=== PATIENT | female | born 1935 | race Caucasian/White ===

== ENCOUNTER 2017-01-27 07:20 | Inpatient (IN) | payer BC, MEDICARE ==
[2017-01-27] MEDS ORDERED: IPRATROPIUM-ALBUTEROL 3 ML NEB INHALATION STA (07:36)
--- NOTE | 2017-01-27 07:39 | ED ---
General Adult HPI - General Chief complaint: Shortness of Breath Stated complaint: RUBEN Time Seen by Provider: 01/27/17 07:25 Source: patient, EMS, RN notes reviewed Mode of arrival: EMS Limitations: no limitations - History of Present Illness Initial comments: This is an 82-year-old female who comes in with past medical history significant for congestive heart failure. Patient states she got up this morning was walking around she became short of breath and it increased to the point where she felt associated called EMS. Patient denies any increased edema to the legs. Patient states exertion definitely made it worse per patient denies any pain anywhere. She denies chest pain abdominal pains. Patient denies headache. Patient denies any numbness weakness. Patient denies any recent fever chills or cough. Patient denies any recent injury or trauma. Patient denies any nausea vomiting diarrhea. Patient states her only symptom is it is difficult to breathe and she feels as though the breathing treatment on the way and helped her even though she normally does not take any breathing treatments. - Related Data Home Medications Medication Instructions Recorded Confirmed Atenolol 100 mg PO BID 01/27/17 01/27/17 Flaxseed Oil [[place]-3 Flaxseed Oil] 3,000 mg PO HS 01/27/17 01/27/17 Furosemide [Lasix] 20 mg PO MOWEFR 01/27/17 01/27/17 Furosemide [Lasix] 20 mg PO SUTUTHSA 01/27/17 01/27/17 Isosorbide Mononitrate ER [Imdur] 30 mg PO BID 01/27/17 01/27/17 Linagliptin [Tradjenta] 5 mg PO DAILY 01/27/17 01/27/17 [place]-3 Fatty Acids/Fish Oil [Fish 3 cap PO QAM 01/27/17 01/27/17 Oil 1,000 mg Softgel] Pravastatin Sodium [Pravachol] 40 mg PO HS 01/27/17 01/27/17 Ranitidine HCl [Zantac] 300 mg PO DAILY 01/27/17 01/27/17 Terazosin [Hytrin] 5 mg PO HS 01/27/17 01/27/17 amLODIPine [Norvasc] 10 mg PO DAILY 01/27/17 01/27/17 glipiZIDE [Glucotrol] 10 mg PO AC-BID 01/27/17 01/27/17 Allergies Allergy/AdvReac Type Severity Reaction Status Date / Time No Known Allergies Allergy Verified 01/27/17 07:53 Review of Systems ROS Statement: Those systems with pertinent positive or pertinent negative responses have been documented in the HPI. ROS Other: All systems not noted in ROS Statement are negative. Past Medical History Past Medical History: Diabetes Mellitus Additional Past Medical History / Comment(s): CHF, History of Any Multi-Drug Resistant Organisms: None Reported Past Surgical History: Appendectomy Past Psychological History: No Psychological Hx Reported Smoking Status: Unknown if ever smoked Past Alcohol Use History: None Reported Past Drug Use History: None Reported General Exam - General Exam Comments Initial Comments: GENERAL: Patient is well-developed and well-nourished. Patient is nontoxic and well- hydrated and is in mild distress. ENT: Neck is soft and supple. No significant lymphadenopathy is noted. Oropharynx is clear. Moist mucous membranes. Neck has full range of motion without eliciting any pain. EYES: The sclera were anicteric and conjunctiva were pink and moist. Extraocular movements were intact and pupils were equal round and reactive to light. Eyelids were unremarkable. PULMONARY: Expiratory wheezing bilaterally no crackles are heard CARDIOVASCULAR: There is a regular rate and rhythm without any murmurs gallops or rubs. ABDOMEN: Soft and nontender with normal bowel sounds. No palpable organomegaly was noted. There is no palpable pulsatile mass. SKIN: Skin is clear with no lesions or rashes and otherwise unremarkable. NEUROLOGIC: Patient is alert and oriented x3. Cranial nerves II through XII are grossly intact. Motor and sensory are also intact. Normal speech, volume and content. Symmetrical smile. MUSCULOSKELETAL: Normal extremities with adequate strength and full range of motion. No lower extremity swelling or edema. No calf tenderness. LYMPHATICS: No significant lymphadenopathy is noted PSYCHIATRIC: Normal psychiatric evaluation. Normal interpersonal interactions appears functionally intact in deals appropriately with others. No signs of depression. No signs of anxiety. Limitations: no limitations Course Vital Signs 01/27/17 01/27/17 01/27/17 07:24 07:27 07:44 Temperature 97.9 F 98.7 F Pulse Rate 96 97 Respiratory 20 20 20 Rate Blood Pressure 168/74 168/74 O2 Sat by Pulse 90 L 97 Oximetry 03/22/17 03/22/17 03/22/17 07:45 07:55 09:05 Temperature Pulse Rate 90 84 83 Respiratory 16 Rate Blood Pressure 160/70 O2 Sat by Pulse Oximetry 01/27/17 01/27/17 09:35 10:55 Temperature Pulse Rate 80 87 Respiratory 20 15 Rate Blood Pressure 180/81 151/67 O2 Sat by Pulse 98 88 L Oximetry Medical Decision Making - Medical Decision Making EKG shows normal sinus rhythm at 91 bpm NH interval is 208 QRSs 86 QT interval 360 QTC is 442. Patient's EKG shows no ST segment elevation or depression or T wave abnormalities are noted. Chest x-ray shows acute pulmonary edema Computed tomography scan shows acute pulmonary edema no PE. I started the patient Lasix and nitro paste admitted the patient I spoke with Dr. Gilliam he agreed to admit the patient I wrote admitting orders and consult cardiology. - Lab Data Result diagrams: 01/27/17 07:30 01/27/17 07:30 Lab Results 01/27/17 01/27/17 01/27/17 Range/Units 07:30 07:30 07:30 WBC 15.8 H (3.8-10.6) k/uL RBC 4.70 (3.80-5.40) m/uL Hgb 13.3 (11.4-16.0) gm/dL Hct 41.3 (34.0-46.0) % MCV 87.9 (80.0-100.0) fL MCH 28.3 (25.0-35.0) pg MCHC 32.2 (31.0-37.0) g/dL RDW 12.9 (11.5-15.5) % Plt Count 299 (150-450) k/uL Neutrophils % 88 % Lymphocytes % 4 % Monocytes % 5 % Eosinophils % 2 % Basophils % 1 % Neutrophils # 13.8 H (1.3-7.7) k/uL Lymphocytes # 0.7 L (1.0-4.8) k/uL Monocytes # 0.7 (0-1.0) k/uL Eosinophils # 0.3 (0-0.7) k/uL Basophils # 0.1 (0-0.2) k/uL PT (9.0-12.0) sec INR (<1.1) APTT (22.0-30.0) sec D-Dimer (<0.60) mg/L FEU Sodium 135 L (137-145) mmol/L Potassium 4.4 (3.5-5.1) mmol/L Chloride 100 (98-107) mmol/L Carbon Dioxide 25 (22-30) mmol/L Anion Gap 10 mmol/L BUN 21 H (7-17) mg/dL Creatinine 0.92 (0.52-1.04) mg/dL Est GFR (MDRD) Af Amer >60 (>60 ml/min/1.73 sqM) Est GFR (MDRD) Non-Af 58 (>60 ml/min/1.73 sqM) Glucose 277 H (74-99) mg/dL POC Glucose (mg/dL) (75-99) mg/dL POC Glu Mortgage Operations Manager ID Calcium 8.9 (8.4-10.2) mg/dL Magnesium 1.9 (1.6-2.3) mg/dL Total Bilirubin 0.7 (0.2-1.3) mg/dL AST 19 (14-36) U/L ALT 22 (9-52) U/L Alkaline Phosphatase 79 (38-126) U/L Total Creatine Kinase 36 (30-135) U/L CK-MB (CK-2) 0.7 (0.0-2.4) ng/mL CK-MB (CK-2) Rel Index 1.9 Troponin I <0.012 (0.000-0.034) ng/mL NT-Pro-B Natriuret Pep pg/mL Total Protein 7.1 (6.3-8.2) g/dL Albumin 3.7 (3.5-5.0) g/dL 01/27/17 01/27/17 01/27/17 Range/Units 07:30 07:30 08:06 WBC (3.8-10.6) k/uL RBC (3.80-5.40) m/uL Hgb (11.4-16.0) gm/dL Hct (34.0-46.0) % MCV (80.0-100.0) fL MCH (25.0-35.0) pg MCHC (31.0-37.0) g/dL RDW (11.5-15.5) % Plt Count (150-450) k/uL Neutrophils % % Lymphocytes % % Monocytes % % Eosinophils % % Basophils % % Neutrophils # (1.3-7.7) k/uL Lymphocytes # (1.0-4.8) k/uL Monocytes # (0-1.0) k/uL Eosinophils # (0-0.7) k/uL Basophils # (0-0.2) k/uL PT 10.4 (9.0-12.0) sec INR 1.0 (<1.1) APTT 20.4 L (22.0-30.0) sec D-Dimer 2.95 H (<0.60) mg/L FEU Sodium (137-145) mmol/L Potassium (3.5-5.1) mmol/L Chloride (98-107) mmol/L Carbon Dioxide (22-30) mmol/L Anion Gap mmol/L BUN (7-17) mg/dL Creatinine (0.52-1.04) mg/dL Est GFR (MDRD) Af Amer (>60 ml/min/1.73 sqM) Est GFR (MDRD) Non-Af (>60 ml/min/1.73 sqM) Glucose (74-99) mg/dL POC Glucose (mg/dL) 285 H (75-99) mg/dL POC Glu Mortgage Operations Manager ID Elisa Posada Calcium (8.4-10.2) mg/dL Magnesium (1.6-2.3) mg/dL Total Bilirubin (0.2-1.3) mg/dL AST (14-36) U/L ALT (9-52) U/L Alkaline Phosphatase (38-126) U/L Total Creatine Kinase (30-135) U/L CK-MB (CK-2) (0.0-2.4) ng/mL CK-MB (CK-2) Rel Index Troponin I (0.000-0.034) ng/mL NT-Pro-B Natriuret Pep 1070 pg/mL Total Protein (6.3-8.2) g/dL Albumin (3.5-5.0) g/dL Critical Care Time Critical Care Time: Yes Total Critical Care Time: 35 Disposition Clinical Impression: Acute pulmonary edema Disposition: ADMITTED IP TO THIS [facility] Time of Disposition: 11:02
[2017-01-27 07:57] LABS: Basophils # (A) 0.1 k/uL (0-0.2); Basophils % (A) 1 %; CH 28.4; CHCM 32.4; Eosinophils # (A) 0.3 k/uL (0-0.7); Eosinophils % (A) 2 %; HCT 41.3 % (34.0-46.0); HDW 2.52; HGB 13.3 gm/dL (11.4-16.0); Luc # (Auto) 0.15; Luc % (Auto) 1; Lymphocytes # (A) 0.7 k/uL (1.0-4.8); Lymphocytes % (A) 4 %; MCH 28.3 pg (25.0-35.0); MCHC 32.2 g/dL (31.0-37.0); MCV 87.9 fL (80.0-100.0); Monocytes # (A) 0.7 k/uL (0-1.0); Monocytes % (A) 5 %; Neutrophils # (A) 13.8 k/uL (1.3-7.7); Neutrophils % (A) 88 %; RDW 12.9 % (11.5-15.5); WBC 15.8 k/uL (3.8-10.6); WBC (Perox) 16.04
[2017-01-27 08:07] LABS: ALT 22 U/L (9-52); AST 19 U/L (14-36); Alkaline Phosphatase 79 U/L (38-126); Anion Gap 10 mmol/L; Blood Urea Nitrogen 21 mg/dL (7-17); Calcium 8.9 mg/dL (8.4-10.2); Carbon Dioxide 25 mmol/L (22-30); Chloride 100 mmol/L (98-107); Glucose 277 mg/dL (74-99); Magnesium 1.9 mg/dL (1.6-2.3); Non-African American GFR(MDRD) 58 (>60 ml/min/1.73 sqM); Potassium 4.4 mmol/L (3.5-5.1); Sodium 135 mmol/L (137-145); Total Bilirubin 0.7 mg/dL (0.2-1.3); Total Protein 7.1 g/dL (6.3-8.2)
[2017-01-27 08:08] LABS: Glucose,Whole Blood 285 mg/dL (75-99)
[2017-01-27 08:08] LABS: Prothrombin Time 10.4 sec (9.0-12.0)
[2017-01-27 08:24] LABS: Partial Thromboplastin Time 20.4 sec (22.0-30.0)
[2017-01-27 08:28] LABS: Creatine Kinase 36 U/L (30-135)
[2017-01-27 08:37] LABS: Creatine Kinase MB 0.7 ng/mL (0.0-2.4); Troponin I <0.012 ng/mL (0.000-0.034)
--- NOTE | 2017-01-27 09:43 | XR ---
EXAMINATION TYPE: XR chest 2V DATE OF EXAM: 01/27/2017 9:17 AM COMPARISON: NONE HISTORY: Difficulty in breathing. TECHNIQUE: Frontal and lateral views of the chest are obtained. FINDINGS: There is cardiomegaly with atherosclerotic thoracic aorta present and central vascular con gestion seen. There is interstitial prominence or edema with Emmie B lines in the periphery. Small b ilateral pleural effusions are felt present. There is slightly more prominent associated basilar atel ectasis and/or infiltrate on lateral view. Spurring and disc space narrowing in the thoracolumbar reg ion is noted. IMPRESSION: Suspect CHF exacerbation as there is cardiomegaly with central vascular congestion along with interstitial edema and small bilateral pleural effusions, clinical correlation advised.
[2017-01-27] MEDS ORDERED: RX INFO: IV CONTRAST WAS GIVEN 1 EACH MISC MISCELLANE PRN (09:44)
[2017-01-27] MEDS ORDERED: FUROSEMIDE 10 MG/ML 2 ML VIAL IV ONE (09:45)
--- NOTE | 2017-01-27 10:46 | CT ---
EXAMINATION TYPE: CT chest angio for PE DATE OF EXAM: 01/27/2017 10:22 AM COMPARISON: Chest x-ray from earlier today HISTORY: difficulty breathing CT DLP: 295.3 mGycm. Automated Exposure Control for Dose Reduction was Utilized. CONTRAST: CTA scan of the thorax is performed with IV Contrast, patient injected with 68 mL of Visipaque 320, p ulmonary embolism protocol. MIP Images are created on CT scanner and reviewed. FINDINGS: LUNGS: Exam is suboptimal as is significantly degraded by patient respiratory motion artifact. There are small to moderate-sized right greater than left pleural effusions. There is associated compressiv e atelectasis in both lung bases, right greater than left. There are some scattered areas of linear a telectasis bilaterally. Evaluation for subcentimeter nodularity is suboptimal due to marked respirato ry motion artifact but note is made of a suspicious 11 x 6 mm nodule in the right midlung anterolater ally on axial image 73 that warrants follow-up. No pneumothorax is seen bilaterally. MEDIASTINUM: There is suboptimal study but there is no convincing CT evidence for pulmonary embolism. Some heterogeneity in the peripheral branches makes evaluation at this level suboptimal. There are no greater than 1 cm noncalcified hilar or mediastinal lymph nodes. There are prominent but calcified subcarinal and paraesophageal lymph nodes. No significant pericardial effusion is seen. There is car diomegaly with moderate biatrial dilatation. Coronary artery calcification is present. There is moder ate mixed plaque in the aortic arch and descending aorta. Reflux of contrast into hepatic veins and I VC suggest some right heart failure. Main pulmonary artery measures 3.0 cm in diameter on axial image 57, adjacent ascending aorta measures 2.[address] findings suggesting underlying pulmonary a rtery hypertension. OTHER: There is multilevel vacuum disc phenomenon and disc space narrowing in the lower thoracic spin e. There is 4 cm simple appearing cyst anteriorly upper pole level left kidney. There is low dense th ickening of left adrenal gland consistent with lipid rich benign hyperplasia. Scattered locations thr oughout the spleen are suggestive of old granulomatous disease.. IMPRESSION: 1. Suboptimal study without CT evidence for pulmonary embolism. 2. Consider CHF exacerbation as there is cardiomegaly with small to moderate-sized right greater than left pleural effusions and scattered opacities suggestive of mild alveolar and interstitial edema. 3. CT findings suggesting right heart failure and underlying pulmonary artery hypertension are noted as detailed above. There is moderate biatrial dilatation and left ventricular hypertrophy noted. Clin ical and echo correlation advised. 4. Note is made of 11 x 6 mm nodule right midlung laterally, consider nonemergent PET/CT follow-up.
[2017-01-27] MEDS: NITROGLYCERIN OINT 1 INCH/GM PACKET TOPICAL SCH ×3 (15:01→23:25)
[2017-01-27] MEDS: glipiZIDE 10 MG TAB PO SCH (16:59)
[2017-01-27] MEDS: FUROSEMIDE 10 MG/ML 2 ML VIAL IV SCH ×2 (16:59→23:26)
[2017-01-27] MEDS: amLODIPine 10 MG TAB PO SCH (16:59)
[2017-01-27] MEDS: LINAGLIPTIN 5 MG TABLET PO SCH (16:59)
[2017-01-27] MEDS: FAMOTIDINE 20 MG TAB PO SCH (16:59)
--- NOTE | 2017-01-27 17:00 | P.CRDCN ---
History of Present Illness Consult date: 01/27/17 Consult reason: congestive heart failure History of present illness: 82-year-old lady with with history of firm moderate right external os is diabetes hypertension comes to Hospital with sudden onset shortness of breath. She developed moderate to severe and sensory shortness of breath without chest pain paroxysmal nocturnal dyspnea or orthopnea. She has known moderate aortic stenosis and echocardiogram in February 2016 revealed mean gradient of 22 mm. He had a dobutamine echo in July 2015 that was negative patient's chest x-ray and CAT scan show evidence of congestive heart failure CT chest is negative for pulmonary embolism BNP is elevated. She is being treated with IV Lasix with improvement in her symptoms. Patient needs evaluation for her underlying aortic valve disease as the congestive heart failure may be due to diastolic dysfunction and hypertensive heart disease are due to the underlying valvular heart disease. She does carry a history of congestive heart failure. Her congestive heart failure is due to diastolic dysfunction this is an acute exacerbation of chronic heart failure. We can increase the dose of diuretics to 40 mg every 8 continue with optimal control of blood pressure. I will obtain troponins to rule out myocardial infarction. Review of Systems Constitutional: Denies chills. Denies fever. Eyes: Denies blurred vision. Denies pain. Ears, nose, mouth and throat: Denies headache. Denies sore throat. Cardiovascular: Denies chest pain. has shortness of breath. Respiratory: Denies cough. Gastrointestinal: Denies abdominal pain. Denies diarrhea. Denies nausea. Denies vomiting. Musculoskeletal: Denies myalgias. Integumentary: Denies pruritus. Denies rash. Neurological: Denies numbness. Denies weakness. Psychiatric: Denies anxiety. Denies depression. Endocrine: Denies fatigue. Denies weight change. Genitourinary: Denies burning, hematuria, frequency of urination. Hematological: No anemia or excess bleeding. Past Medical History Past Medical History: Diabetes Mellitus, GERD/Reflux, Renal Disease, Vascular Disorder Additional Past Medical History / Comment(s): CHF, cardiomyopathy, cardiac valve problem, NIDDM type II, past diabetic retinopathy-"they say I don't have it anymore.", peripheral neuropathy L hand and L foot, CKD stage III, bronchitis History of Any Multi-Drug Resistant Organisms: None Reported Past Surgical History: Appendectomy Additional Past Surgical History / Comment(s): colonoscopies with benign polypectomy, bilateral cataract removal. Past Anesthesia/Blood Transfusion Reactions: Motion Sickness Past Psychological History: No Psychological Hx Reported Additional Psychological History / Comment(s): Pt resides with her spouse. She uses no assistive device. She drives locally, familiar areas. Smoking Status: Former smoker Past Alcohol Use History: None Reported Past Drug Use History: None Reported - Past Family History Father Family Medical History: Myocardial Infarction (OK) Additional Family Medical History / Comment(s): Father of a OK at the age of 58yrs. Mother Family Medical History: No Reported History Additional Family Medical History / Comment(s): Mother lived to be 84 yrs old. Medications and Allergies Home Medications Medication Instructions Recorded Confirmed Type Atenolol 100 mg PO BID 01/27/17 01/27/17 History Flaxseed Oil [[place]-3 Flaxseed Oil] 3,000 mg PO HS 01/27/17 01/27/17 History Furosemide [Lasix] 20 mg PO MOWEFR 01/27/17 01/27/17 History Furosemide [Lasix] 20 mg PO SUTUTHSA 01/27/17 01/27/17 History Isosorbide Mononitrate ER [Imdur] 30 mg PO BID 01/27/17 01/27/17 History Linagliptin [Tradjenta] 5 mg PO DAILY 01/27/17 01/27/17 History [place]-3 Fatty Acids/Fish Oil [Fish 3 cap PO QAM 01/27/17 01/27/17 History Oil 1,000 mg Softgel] Pravastatin Sodium [Pravachol] 40 mg PO HS 01/27/17 01/27/17 History Ranitidine HCl [Zantac] 300 mg PO DAILY 01/27/17 01/27/17 History Terazosin [Hytrin] 5 mg PO HS 01/27/17 01/27/17 History amLODIPine [Norvasc] 10 mg PO DAILY 01/27/17 01/27/17 History glipiZIDE [Glucotrol] 10 mg PO AC-BID 01/27/17 01/27/17 History Allergies Allergy/AdvReac Type Severity Reaction Status Date / Time No Known Allergies Allergy Verified 01/27/17 07:53 Physical Exam Vitals: Vital Signs Temp Pulse Pulse Resp BP BP Pulse Ox 01/27/17 14:56 98.1 F 92 20 202/81 91 L 01/27/17 13:40 97.5 F L 83 20 132/68 95 01/27/17 12:19 86 18 144/70 93 L Intake and Output 01/27/17 01/27/17 01/27/17 06:59 14:59 22:59 Other: # Voids 1 General: The patient is awake and alert, in no distress, and does not appear acutely ill. Skin: Skin is warm and dry and no rashes or lesions are noted. Eye: Pupils are equal, round and reactive to light, extra-ocular movements are intact; there is normal conjunctiva bilaterally. Ears, nose, mouth and throat: There are moist mucous membranes and no oral lesions. Neck: The neck is supple, there is no tenderness or JVD. Cardiovascular: [ There is a regular rate and rhythm.] Is a grade 3 x 6 ejection systolic murmur in the aortic area and a systolic murmur at the apex Respiratory: Bilateral crackles and rhonchi noted Gastrointestinal: Soft, non-distended, non-tender abdomen without masses or organomegaly noted. There is no rebound or guarding present. Bowel sounds are unremarkable. Back: There is no tenderness to palpation in the midline. There is no obvious deformity. Musculoskeletal: Normal ROM, no tenderness, There is no pedal edema. There is no calf tenderness or swelling. Extremities:[ No edema.] Vascular: [Femoral pulse is normal.][ Posterior tibial pulses are normal .][ Dorsalis pedis is palpable.] Neurological: CN II-XII intact. There are no obvious motor or sensory deficits. Speech is normal. Psychiatric: Cooperative, appropriate mood & affect, normal judgment. Results 01/27/17 07:30 01/27/17 07:30 Current Medications Generic Name Dose Route Start Last Admin Trade Name Freq PRN Reason Stop Dose Admin Amlodipine Besylate 10 mg 01/27/17 15:30 Norvasc PO DAILY ULISES Atenolol 100 mg 01/27/17 21:00 Tenormin PO BID ULISES Famotidine 40 mg 01/27/17 15:30 Pepcid PO DAILY ULISES Furosemide 20 mg 01/27/17 18:00 Lasix IV Q8H ULISES Glipizide 10 mg 01/27/17 17:30 Glucotrol PO AC-BID ULISES Insulin Human Lispro 0 unit 01/27/17 17:30 Humalog SQ ACHS ULISES Protocol Linagliptin 5 mg 01/27/17 15:30 Tradjenta PO DAILY ULISES Miscellaneous Information 1 each 01/27/17 09:44 01/27/17 10:44 Rx Info: Iv Contrast Was Given MISCELLANE 01/29/17 09:44 1 each DAILY PRN Administration Per Protocol Nitroglycerin 1 inch 01/27/17 13:00 01/27/17 15:01 Nitro-Bid Oint TOPICAL Not Given QID ULISES Pravastatin Sodium 40 mg 01/27/17 21:00 Pravachol PO HS ULISES Terazosin HCl 5 mg 01/27/17 21:00 Hytrin PO HS ULISES Intake and Output 01/27/17 01/27/17 01/27/17 06:59 14:59 22:59 Other: # Voids 1 EKG Interpretations (text) Normal sinus rhythm without ST-T wave changes Assessment and Plan Plan: Acute exacerbation of chronic diastolic heart failure Moderate aortic stenosis Hypertension Lipidemia Patient will be treated with intravenous diuretics continue with current antihypertensive medications. Once the heart failure resolves patient may benefit from invasive angiography to rule out significant obstructive CAD and a transesophageal echo if necessary for optimal evaluation of the aortic valve
[2017-01-27] MEDS: INSULIN LISPRO (humaLOG) 300 UNIT/3 ML VIAL SQ SCH ×2 (17:07→21:17)
[2017-01-27 17:10] LABS: Glucose,Whole Blood 200 mg/dL (75-99)
[2017-01-27 20:53] LABS: Glucose,Whole Blood 171 mg/dL (75-99)
[2017-01-27] MEDS: ATENOLOL 50 MG TAB PO SCH (21:17)
[2017-01-27] MEDS: TERAZOSIN 5 MG CAP PO SCH (21:17)
[2017-01-27] MEDS: PRAVASTATIN SODIUM 40 MG TAB PO SCH (21:17)
[2017-01-27] MEDS: HEPARIN SODIUM,PORCINE 5,000 UNIT/ML 1 ML VIAL SQ SCH (23:38)
[2017-01-28 05:37] LABS: Glucose,Whole Blood 221 mg/dL (75-99)
[2017-01-28 06:13] LABS: Basophils # (A) 0.1 k/uL (0-0.2); Basophils % (A) 1 %; CH 28.4; CHCM 32.3; Eosinophils # (A) 0.2 k/uL (0-0.7); Eosinophils % (A) 2 %; HCT 35.2 % (34.0-46.0); HDW 2.49; HGB 11.1 gm/dL (11.4-16.0); Luc # (Auto) 0.15; Luc % (Auto) 2; Lymphocytes # (A) 0.7 k/uL (1.0-4.8); Lymphocytes % (A) 6 %; MCH 27.9 pg (25.0-35.0); MCHC 31.7 g/dL (31.0-37.0); MCV 88.1 fL (80.0-100.0); Mean Platelet Volume 6.6; Monocytes # (A) 0.8 k/uL (0-1.0); Monocytes % (A) 8 %; Neutrophils # (A) 8.8 k/uL (1.3-7.7); Neutrophils % (A) 82 %; WBC 10.6 k/uL (3.8-10.6); WBC (Perox) 11.22
[2017-01-28 06:21] LABS: Calcium 8.9 mg/dL (8.4-10.2); Potassium 4.4 mmol/L (3.5-5.1)
[2017-01-28] MEDS: glipiZIDE 10 MG TAB PO SCH ×2 (06:30→17:20)
[2017-01-28] MEDS: INSULIN LISPRO (humaLOG) 300 UNIT/3 ML VIAL SQ SCH ×4 (06:31→21:30)
[2017-01-28] MEDS: LINAGLIPTIN 5 MG TABLET PO SCH (08:59)
[2017-01-28] MEDS: ATENOLOL 50 MG TAB PO SCH ×2 (09:00→21:28)
[2017-01-28] MEDS: HEPARIN SODIUM,PORCINE 5,000 UNIT/ML 1 ML VIAL SQ SCH ×2 (09:00→17:22)
[2017-01-28] MEDS: NITROGLYCERIN OINT 1 INCH/GM PACKET TOPICAL SCH (09:00)
[2017-01-28] MEDS: FAMOTIDINE 20 MG TAB PO SCH (09:00)
[2017-01-28] MEDS: amLODIPine 10 MG TAB PO SCH (09:01)
[2017-01-28] MEDS: FUROSEMIDE 10 MG/ML 2 ML VIAL IV SCH (09:01)
--- NOTE | 2017-01-28 09:42 | P.PN ---
Subjective Principal diagnosis: CHF This is a pleasant 82-year-old female with history of diabetes, hypertension, hyperlipidemia, who presented to the hospital with symptoms of progressively worsening shortness of breath. According to the patient, she is prescribed to take Lasix at home, however has not taken it as prescribed because of the irritation of having to urinate so frequently. Chest x-ray on admission here showed congestive heart failure exacerbation as well as cardiomegaly with central vascular congestion. BNP level 1070.. She was initiated on IV Lasix. She diuresed well through the night. Creatinine this morning 1.3, up from 0.9. D-dimer was elevated and for this reason a CT of the chest was requested. There was no evidence of pulmonary embolism. It did reveal congestive heart failure with a moderate right side pleural effusion. Patient was also found to have a 11.6 mm nodule in the right midlung laterally. Blood pressure this morning 108/60 with a heart rate in the 60s. She is 92% on 6 L of oxygen. At the time of my examination this morning, patient states that her breathing is significantly improved. Echo with Doppler study has been requested but as yet pending. Objective - Vital Signs Vital signs: Vital Signs Temp 97.4 F L 01/28/17 04:00 Pulse 64 01/28/17 04:00 Resp 19 01/28/17 04:00 BP 108/62 01/28/17 04:00 Pulse Ox 92 L 01/28/17 04:00 Intake & Output 01/27/17 01/28/17 01/28/17 18:59 06:59 18:59 Intake Total 200 400 100 Output Total 100 Balance 200 300 100 Weight 75.1 kg Intake: Oral 200 400 100 Output: Urine 100 Other: Voiding Method Urinal # Voids 1 - Exam PHYSICAL EXAMINATION: HEENT: Head is atraumatic, normocephalic. Pupils equal, round. Neck is supple. There is no elevated jugular venous pressure. HEART EXAMINATION: Heart S1 and S2 systolic ejection murmur is heard. CHEST EXAMINATION: Lungs are clear with mild diminished air entry to the right posterior base ABDOMEN: Soft, nontender. Bowel sounds are heard. No organomegaly noted. EXTREMITIES: 2+ peripheral pulses with trace evidence of peripheral edema and no calf tenderness noted. NEUROLOGIC patient is awake, alert and oriented -3. . - Labs CBC & Chem 7: 01/28/17 05:49 01/28/17 05:49 Labs: Abnormal Lab Results - Last 24 Hours (Table) 01/27/17 01/27/17 01/27/17 Range/Units 16:47 17:21 20:51 Hgb (11.4-16.0) gm/dL Neutrophils # (1.3-7.7) k/uL Lymphocytes # (1.0-4.8) k/uL Sodium (137-145) mmol/L BUN (7-17) mg/dL Creatinine (0.52-1.04) mg/dL Glucose (74-99) mg/dL POC Glucose (mg/dL) 200 H 171 H (75-99) mg/dL Troponin I 0.115 H* (0.000-0.034) ng/mL 01/27/17 01/28/17 01/28/17 Range/Units 23:20 05:35 05:49 Hgb (11.4-16.0) gm/dL Neutrophils # (1.3-7.7) k/uL Lymphocytes # (1.0-4.8) k/uL Sodium (137-145) mmol/L BUN (7-17) mg/dL Creatinine (0.52-1.04) mg/dL Glucose (74-99) mg/dL POC Glucose (mg/dL) 221 H (75-99) mg/dL Troponin I 0.121 H* 0.107 H* (0.000-0.034) ng/mL 01/28/17 01/28/17 Range/Units 05:49 05:49 Hgb 11.1 L (11.4-16.0) gm/dL Neutrophils # 8.8 H (1.3-7.7) k/uL Lymphocytes # 0.7 L (1.0-4.8) k/uL Sodium 136 L (137-145) mmol/L BUN 28 H (7-17) mg/dL Creatinine 1.30 H (0.52-1.04) mg/dL Glucose 203 H (74-99) mg/dL POC Glucose (mg/dL) (75-99) mg/dL Troponin I (0.000-0.034) ng/mL Assessment and Plan (1) Diastolic CHF, acute on chronic Status: Acute (2) Aortic stenosis Status: Acute (3) Hypertension Status: Acute (4) Diabetes Status: Acute (5) Hyperlipidemia Status: Acute (6) Lung nodule Status: Acute Plan: From cardiology's perspective, we will await the results of echocardiogram with Doppler study. We will discontinue the IV Lasix, and recommended that the patient take 20 mg of by mouth Lasix twice a day. Check lytes BUN and creatinine in the morning. Further recommendations to follow. DNP note has been reviewed, I agree with a documented findings and plan of care. Patient was seen and examined.
--- NOTE | 2017-01-28 09:45 | P.NPCON ---
History of Present Illness - Reason for Consult acute renal failure - History of Present Illness Reason for consultation: Acute kidney injury History of present illness: Patient is a 82-year-old female seen in renal consultation for acute kidney injury. Her creatinine was 1 on admission and elevated at 1.3 today. Patient presented to the hospital with dyspnea. She has history of aortic stenosis and diastolic CHF. Patient was maintained on Lasix at home but states she had decreased the dose down to 20 mg once daily as she was urinating too much. She progressively became more dyspneic and presented to the hospital. She is currently maintained on Lasix 20 mg IV every 8 hours and has been diuresing well. Her dyspnea is improved. She denies any chest pain. Denies any vomiting or diarrhea. Oral intake is good. Denies use of NSAIDs on a regular basis. Denies any family history of renal disease. Does have a history of long-standing diabetes of over 25 years. Vital signs are stable. General: The patient appeared well nourished and normally developed. HEENT: Head exam is unremarkable. Neck is without jugular venous distension. LUNGS: Lungs are clear to auscultation and percussion. Breath sounds decreased. HEART: Rate and Rhythm are regular. First and second heart sounds normal. No murmurs, rubs or gallops. ABDOMEN: Abdominal exam reveals normal bowel sounds. Non-tender and non- distended. No evidence of peritonitis. EXTREMITITES: No clubbing, cyanosis, or edema. Past Medical History Past Medical History: Diabetes Mellitus, GERD/Reflux, Renal Disease, Vascular Disorder Additional Past Medical History / Comment(s): CHF, cardiomyopathy, cardiac valve problem, NIDDM type II, past diabetic retinopathy-"they say I don't have it anymore.", peripheral neuropathy L hand and L foot, CKD stage III, bronchitis History of Any Multi-Drug Resistant Organisms: None Reported Past Surgical History: Appendectomy Additional Past Surgical History / Comment(s): colonoscopies with benign polypectomy, bilateral cataract removal. Past Anesthesia/Blood Transfusion Reactions: Motion Sickness Past Psychological History: No Psychological Hx Reported Additional Psychological History / Comment(s): Pt resides with her spouse. She uses no assistive device. She drives locally, familiar areas. Smoking Status: Former smoker Past Alcohol Use History: None Reported Past Drug Use History: None Reported - Past Family History Father Family Medical History: Myocardial Infarction (ME) Additional Family Medical History / Comment(s): Father of a ME at the age of 58yrs. Mother Family Medical History: No Reported History Additional Family Medical History / Comment(s): Mother lived to be 84 yrs old. Medications and Allergies Home Medications Medication Instructions Recorded Confirmed Type Atenolol 100 mg PO BID 01/27/17 01/27/17 History Flaxseed Oil [[place]-3 Flaxseed Oil] 3,000 mg PO HS 01/27/17 01/27/17 History Furosemide [Lasix] 20 mg PO MOWEFR 01/27/17 01/27/17 History Furosemide [Lasix] 20 mg PO SUTUTHSA 01/27/17 01/27/17 History Isosorbide Mononitrate ER [Imdur] 30 mg PO BID 01/27/17 01/27/17 History Linagliptin [Tradjenta] 5 mg PO DAILY 01/27/17 01/27/17 History [place]-3 Fatty Acids/Fish Oil [Fish 3 cap PO QAM 01/27/17 01/27/17 History Oil 1,000 mg Softgel] Pravastatin Sodium [Pravachol] 40 mg PO HS 01/27/17 01/27/17 History Ranitidine HCl [Zantac] 300 mg PO DAILY 01/27/17 01/27/17 History Terazosin [Hytrin] 5 mg PO HS 01/27/17 01/27/17 History amLODIPine [Norvasc] 10 mg PO DAILY 01/27/17 01/27/17 History glipiZIDE [Glucotrol] 10 mg PO AC-BID 01/27/17 01/27/17 History Allergies Allergy/AdvReac Type Severity Reaction Status Date / Time No Known Allergies Allergy Verified 01/27/17 07:53 Physical Exam Vitals: Vital Signs Temp Pulse Pulse Resp BP BP Pulse Ox 01/28/17 04:00 97.4 F L 64 17 108/62 92 L 01/28/17 00:00 97.8 F 62 19 124/59 91 L 01/27/17 20:00 97.7 F 72 18 135/60 90 L 01/27/17 14:56 98.1 F 92 20 202/81 91 L 01/27/17 13:40 97.5 F L 83 20 132/68 95 01/27/17 12:19 86 18 144/70 93 L Intake and Output 01/27/17 01/28/17 01/28/17 22:59 06:59 14:59 Intake Total 200 400 100 Output Total 100 Balance 200 300 100 Intake: Oral 200 400 100 Output: Urine 100 Other: Voiding Method Urinal Urinal # Voids 1 Weight 75.1 kg Results - Lab Results Most recent lab results Calcium 8.9 mg/dL (8.4-10.2) 01/28/17 05:49 Magnesium 1.9 mg/dL (1.6-2.3) 01/27/17 07:30 01/28/17 05:49 01/28/17 05:49 Assessment and Plan Plan: Assessment: #1. Nonoliguric acute kidney injury mostly prerenal secondary to diuresis. Creatinine 1.3 today. Baseline creatinine is near 1. #2. Chronic kidney disease stage II. Patient states she has chronic kidney disease which is likely due to underlying diabetes mellitus and cardiorenal syndrome. Baseline creatinine is near 1. #3. Volume overload. #4. Moderate aortic stenosis. #5. Diabetes mellitus. Plan: I will change Lasix to 40 mg IV twice daily. Check urinalysis. Follow-up echocardiogram results. Continue with low-salt diet. Repeat electrolytes in the morning. Thank you for the consultation. I will continue to follow the patient with you during her hospital stay.
--- NOTE | 2017-01-28 10:22 | HP ---
DATE OF ADMISSION: Chief complaint is difficulty breathing. HISTORY OF ILLNESS: Ms. Burroughs is an 82-year-old female with a known history of CHF with diastolic dysfunction, CKD stage III, diabetes mellitus and peripheral neuropathy, came to the hospital with complaints of sudden onset of short of breath. Patient also has a history of moderate aortic stenosis as per previous echocardiogram. Patient had elevated d-dimer and CT of the chest was done, showed no pulmonary embolism in the ER. Patient was found to have congestive heart failure exacerbation and chest x-ray which showed cardiomegaly and central vascular congestion along with interstitial edema and small bilateral pleural effusions. Patient was also having uncontrolled hypertension on admission. Patient was treated with IV Lasix and patient did improve symptomatically in the ER and the patient, otherwise shortness of breath is improved compared to when she came to the hospital. Cardiology has been consulted for further elevation. REVIEW OF SYSTEMS: CONSTITUTIONAL: No fever. No chills. No weakness, malaise. RESPIRATORY: No cough or sputum production. CARDIOVASCULAR: No chest pain. Patient does have short of breath. No leg swelling. The patient does have 1% pedal edema. RESPIRATORY: No cough or sputum production. Patient does have short of breath. ABDOMEN: No nausea, vomiting, abdominal pain. No diarrhea. GENITOURINARY: No dysuria. ENDOCRINE: Negative. PSYCHIATRY: Negative. SKIN: Negative. MUSCULOSKELETAL: Negative. All other 14-point review of systems negative except as above. PAST MEDICAL HISTORY: Hypertension, diabetes mellitus, CKD stage III, GERD, diabetic peripheral neuropathy, diabetic retinopathy, moderate aortic stenosis, CHF with diastolic dysfunction. PAST SURGICAL HISTORY: Colonoscopy with polypectomy, bilateral cataract removal. No psychosocial history. SOCIAL HISTORY: Patient is a former smoker. Lives with her spouse, denied any alcohol use. Denied any drugs or IVDU. FAMILY HISTORY: Father had ID. of ID at the age of is a 58 years. Mother lived to be an 84-year-old. Home medications include: 1. Atenolol. 2. [place]-3 flaxseed oil. 3. Lasix. 4. Imdur. 5. Linagliptin. 6. [place] 3 fatty acids. 7. Pravastatin. 8. Ranitidine. 9. Terazosin. 10. Amlodipine. 11. Glipizide. No known drug allergies. PHYSICAL EXAMINATION: An 82-year-old female, lying in the bed comfortably. Awake, alert, oriented, x3. Appears to be in no apparent distress. VITALS: Blood pressure is 202/81, pulse is 92, respirations 20, temperature afebrile, pulse ox 91% on 6 L nasal cannula. HEENT: Atraumatic, normocephalic. Neck is supple. No JVD. CVS EXAM: S1, S2 heard. Patient does have a systolic murmur. LUNGS: Bilateral air entry is present, basal crackle is positive, no wheezing, nonlabored breathing. Abdomen is soft, nontender. Bowel sounds are present. 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 No focal deficit. EXTREMITIES: No edema. Pulses palpable bilaterally. No clubbing or cyanosis. PSYCHIATRIC: Cooperative. LABORATORY DATA: WBC 15.8, hemoglobin 13.3, platelets 299, INR 1.0, d-dimer 2.95, sodium 135, potassium 4.4, chloride 100, bicarb is 21, creatinine is 0.92. Blood sugar is 277, hemoglobin A1c is 7.0. Liver enzymes are not elevated. Troponin 0.012, NT-proBNP is 1020, second troponin elevated at 0.115. EKG normal sinus rhythm. CHEST X-RAY: Correlate for CHF. IMPRESSION: 1. Acute on chronic congestive heart failure with diastolic dysfunction and valvular heart disease. 2. Moderate aortic valve stenosis. 3. Uncontrolled hypertension. 4. Pulmonary edema. 5. Elevated troponin, possible non-ST elevated myocardial infarction. 6. Diabetes mellitus, Hb-A1c of 7.0. 7. Diabetic peripheral neuropathy and retinopathy. 8. Chronic kidney disease stage III. 9. Deep venous thrombosis prophylaxis with heparin subQ. DISCUSSION AND PLAN: Patient will be continued on IV Lasix 20 mg q.8 hourly and continue to monitor renal function. Will trend troponins. Cardiology is following this patient. Will continue the home medications. A 2-D echo was ordered. Continue with the insulin dosing and follow up closely. Further recommendations based on the clinical course.
--- NOTE | 2017-01-28 11:05 | ECHOF ---
Referral Reason:as MEASUREMENTS -------- HEIGHT: 154.9 cm WEIGHT: 74.8 kg BP: 108/62 IVSd: 1.2 cm (0.6 - 1.1) LVIDd: 3.2 cm (3.9 - 5.3) LVPWd: 1.4 cm (0.6 - 1.1) IVSs: 2.0 cm LVIDs: 1.5 cm LVPWs: 1.5 cm LAESV Index (A-L): 77.09 ml/m Ao Diam: 2.7 cm (2.0 - 3.7) AV Cusp: 1.5 cm (1.5 - 2.6) LA Diam: 4.3 cm (2.7 - 3.8) MV EXCURSION: 7.007 mm (> 18.000) MV EF SLOPE: 26 mm/s (70 - 150) EPSS: 1.1 cm MV E Asael: 1.74 m/s MV DecT: 242 ms MV A Asael: 0.59 m/s MV E/A Ratio: 2.92 AV maxP.48 mmHg AV meanP.02 mmHg RAP: 15.00 mmHg RVSP: 64.26 mmHg FINDINGS -------- Sinus rhythm with extra systolic beats. This was a technically adequate study. The left ventricular size is normal. There is mild concentric left ventricular hypertrophy. Overall left ventricular systolic function is normal with, an EF between 55 - 60 %. The right ventricle is normal in size and function. LA is severely dilated >40 ml/m2 The right atrium is normal in size. Aortic valve is trileaflet and is severely thickened. There is moderate aortic stenosis present. Peak/mean gradient across the Aortic Valve is 49.48mmHg / 37.02mmHg. Severe mitral annular calcification present. [id number] mitral regurgitation is present. The peak and mean MV gradients are 18.60mmHg 5.17mmHg as measured by doppler. Whlo-kr-rzrhazfa mitral stenosis. Mild tricuspid regurgitation present. There is moderate pulmonary hypertension. The right ventricular systolic pressure, as measured by Doppler, is 64.26mmHg. The pulmonic valve was not well visualized. Area Of Interest LA. The aortic root size is normal. There is a small, generalized pericardial effusion present. CONCLUSIONS -------- 1. Sinus rhythm with extra systolic beats. 2. The peak and mean MV gradients are 18.60mmHg 5.17mmHg as measured by doppler. 3. Wjls-uh-voimaovy mitral stenosis. 4. Mild tricuspid regurgitation present. 5. There is moderate pulmonary hypertension. 6. The right ventricular systolic pressure, as measured by Doppler, is 64.26mmHg. 7. The pulmonic valve was not well visualized. 8. Area Of Interest LA. 9. The aortic root size is normal. 10. There is a small, generalized pericardial effusion present. 11. This was a technically adequate study. 12. There is mild concentric left ventricular hypertrophy. 13. Overall left ventricular systolic function is normal with, an EF between 55 - 60 %. 14. LA is severely dilated >40 ml/m2 15. Aortic valve is trileaflet and is severely thickened. 16. There is moderate aortic stenosis present. 17. Peak/mean gradient across the Aortic Valve is 49.48mmHg / 37.02mmHg. 18. Severe mitral annular calcification present. [employer]RIMPING [employer]AT [employer]TAIN: Radha Bazan RDCS
[2017-01-28 11:29] VITALS: BMI 31.2
[2017-01-28 12:02] LABS: Glucose,Whole Blood 162 mg/dL (75-99)
[2017-01-28 16:50] LABS: Glucose,Whole Blood 238 mg/dL (75-99)
[2017-01-28] MEDS: FUROSEMIDE 20 MG TAB PO SCH (17:20)
[2017-01-28] MEDS ORDERED: HEPARIN SODIUM,PORCINE 5,000 UNIT/ML 1 ML VIAL IV PRN (17:50)
[2017-01-28] MEDS ORDERED: HEPARIN SODIUM,PORCINE/D5W PMX 25,000 UNIT in DEXTROSE/WATER 1 500ML.BAG IV SCH (18:00)
[2017-01-28 19:43] LABS: Basophils # (A) 0.1 k/uL (0-0.2); Basophils % (A) 1 %; CH 28.9; CHCM 32.9; Eosinophils # (A) 0.3 k/uL (0-0.7); Eosinophils % (A) 3 %; HCT 36.8 % (34.0-46.0); HDW 2.48; HGB 12.1 gm/dL (11.4-16.0); Luc # (Auto) 0.28; Luc % (Auto) 2; Lymphocytes % (A) 9 %; MCH 29.1 pg (25.0-35.0); MCV 88.1 fL (80.0-100.0); Mean Platelet Volume 7.3; Monocytes # (A) 0.8 k/uL (0-1.0); Monocytes % (A) 7 %; Neutrophils # (A) 9.1 k/uL (1.3-7.7); Neutrophils % (A) 79 %; RBC 4.18 m/uL (3.80-5.40); RDW 13.1 % (11.5-15.5); WBC 11.5 k/uL (3.8-10.6); WBC (Perox) 11.85
[2017-01-28 20:04] LABS: Partial Thromboplastin Time 29.8 sec (22.0-30.0); Prothrombin Time 10.5 sec (9.0-12.0)
[2017-01-28 21:11] LABS: Glucose,Whole Blood 170 mg/dL (75-99)
[2017-01-28] MEDS: TERAZOSIN 5 MG CAP PO SCH (21:29)
[2017-01-28] MEDS: PRAVASTATIN SODIUM 40 MG TAB PO SCH (21:32)
[2017-01-29 06:15] LABS: Glucose,Whole Blood 203 mg/dL (75-99)
[2017-01-29 06:27] LABS: Basophils # (A) 0.1 k/uL (0-0.2); Basophils % (A) 1 %; CH 28.9; Eosinophils # (A) 0.5 k/uL (0-0.7); Eosinophils % (A) 4 %; HCT 34.8 % (34.0-46.0); HGB 11.7 gm/dL (11.4-16.0); Luc # (Auto) 0.23; Luc % (Auto) 2; Lymphocytes % (A) 9 %; MCH 29.4 pg (25.0-35.0); MCHC 33.5 g/dL (31.0-37.0); MCV 87.8 fL (80.0-100.0); Mean Platelet Volume 7.5; Monocytes # (A) 0.9 k/uL (0-1.0); Monocytes % (A) 8 %; Neutrophils # (A) 8.7 k/uL (1.3-7.7); Neutrophils % (A) 77 %; RBC 3.97 m/uL (3.80-5.40); RDW 13.1 % (11.5-15.5); WBC 11.4 k/uL (3.8-10.6); WBC (Perox) 11.62
[2017-01-29] MEDS: glipiZIDE 10 MG TAB PO SCH ×2 (06:31→17:23)
[2017-01-29] MEDS: INSULIN LISPRO (humaLOG) 300 UNIT/3 ML VIAL SQ SCH ×4 (06:31→20:49)
[2017-01-29 07:12] LABS: Potassium 4.2 mmol/L (3.5-5.1)
[2017-01-29 07:33] LABS: Appearance,Urine Cloudy (Clear); Bacteria,Urine Few /hpf; Bilirubin,Urine Negative (Negative); Glucose,Urine (UA) Negative (Negative); Ketones,Urine Negative (Negative); Leukocyte Esterase,Urine Large (Negative); Mucus,Urine Rare /hpf; Nitrite,Urine Negative (Negative); Particle Count 24107; Protein,Urine Trace (Negative); Specific Gravity,Urine 1.013 (1.001-1.035); Squamous Epithelial Cell,Urine 33 /hpf (0-4); UA Billing (MACRO vs. MICRO) MICRO; Urobilinogen,Urine <2.0 mg/dL (<2.0); WBC,Urine 19 /hpf (0-5)
[2017-01-29] MEDS: ATENOLOL 50 MG TAB PO SCH ×2 (08:09→20:48)
[2017-01-29] MEDS: amLODIPine 10 MG TAB PO SCH (08:09)
[2017-01-29] MEDS: LINAGLIPTIN 5 MG TABLET PO SCH (08:09)
[2017-01-29] MEDS: FUROSEMIDE 20 MG TAB PO SCH ×2 (08:09→16:19)
[2017-01-29] MEDS: FAMOTIDINE 20 MG TAB PO SCH (08:09)
--- NOTE | 2017-01-29 08:09 | P.PN ---
Subjective Patient is seen in follow-up for acute kidney injury. Her baseline creatinine is 1 and was elevated at 1.3 yesterday and is down to 1.22 today. She is currently maintained on Lasix 20 mg orally twice daily. She presented with worsening dyspnea over the last few days. She does have history of moderate aortic stenosis, mild to moderate mitral stenosis as well as moderate pulmonary hypertension. Today she states her dyspnea is improved but she did get short of breath when walking to and back from the bathroom. Good urine output. No vomiting or diarrhea. Vital signs are stable. General: The patient appeared well nourished and normally developed. HEENT: Head exam is unremarkable. Neck is without jugular venous distension. LUNGS: Lungs are clear to auscultation and percussion. Breath sounds decreased. HEART: Rate and Rhythm are regular. First and second heart sounds normal. No murmurs, rubs or gallops. ABDOMEN: Abdominal exam reveals normal bowel sounds. Non-tender and non- distended. No evidence of peritonitis. EXTREMITITES: No clubbing, cyanosis, or edema. Objective - Vital Signs Vital signs: Vital Signs Temp 97.9 F 01/29/17 04:00 Pulse 75 01/29/17 04:00 Resp 18 01/29/17 04:00 BP 133/63 01/29/17 04:00 Pulse Ox 90 L 01/29/17 04:00 Intake & Output 01/28/17 01/29/17 01/29/17 18:59 06:59 18:59 Intake Total 400 141.137 Output Total 250 500 Balance 150 -358.863 Weight 75.1 kg 75.7 kg Intake: IV 18 Heparin Sodium,Porcine/ 18 D5w Pmx 25,000 unit In Dextrose/Water 1 500ml. bag @ 12 UNITS/KG/HR 18. 02 mls/hr IV .Q24H ULISES Rx #:[id number] Intake, IV Titration 123.137 Amount Heparin Sodium,Porcine/ 123.137 D5w Pmx 25,000 unit In Dextrose/Water 1 500ml. bag @ 12 UNITS/KG/HR 18. 02 mls/hr IV .Q24H ULISES Rx #:[id number] Oral 400 Output: Urine 250 500 Other: Voiding Method Urinal # Voids 500 - Labs CBC & Chem 7: 01/29/17 05:45 01/29/17 05:45 Labs: Abnormal Lab Results - Last 24 Hours (Table) 01/28/17 01/28/17 01/28/17 Range/Units 11:47 16:46 19:18 WBC 11.5 H (3.8-10.6) k/uL Neutrophils # 9.1 H (1.3-7.7) k/uL APTT (22.0-30.0) sec BUN (7-17) mg/dL Creatinine (0.52-1.04) mg/dL Glucose (74-99) mg/dL POC Glucose (mg/dL) 162 H 238 H (75-99) mg/dL Urine Appearance (Clear) Urine Protein (Negative) Ur Leukocyte Esterase (Negative) Urine WBC (0-5) /hpf Ur Squamous Epith Cells (0-4) /hpf Urine Bacteria (None) /hpf Urine Mucus (None) /hpf 01/28/17 01/29/17 01/29/17 Range/Units 20:47 00:05 05:45 WBC (3.8-10.6) k/uL Neutrophils # (1.3-7.7) k/uL APTT 39.0 H (22.0-30.0) sec BUN 32 H (7-17) mg/dL Creatinine 1.22 H (0.52-1.04) mg/dL Glucose 181 H (74-99) mg/dL POC Glucose (mg/dL) 170 H (75-99) mg/dL Urine Appearance (Clear) Urine Protein (Negative) Ur Leukocyte Esterase (Negative) Urine WBC (0-5) /hpf Ur Squamous Epith Cells (0-4) /hpf Urine Bacteria (None) /hpf Urine Mucus (None) /hpf 01/29/17 01/29/17 01/29/17 Range/Units 05:45 05:45 06:00 WBC 11.4 H (3.8-10.6) k/uL Neutrophils # 8.7 H (1.3-7.7) k/uL APTT 68.7 H (22.0-30.0) sec BUN (7-17) mg/dL Creatinine (0.52-1.04) mg/dL Glucose (74-99) mg/dL POC Glucose (mg/dL) (75-99) mg/dL Urine Appearance Cloudy H (Clear) Urine Protein Trace H (Negative) Ur Leukocyte Esterase Large H (Negative) Urine WBC 19 H (0-5) /hpf Ur Squamous Epith Cells 33 H (0-4) /hpf Urine Bacteria Few H (None) /hpf Urine Mucus Rare H (None) /hpf 01/29/17 Range/Units 06:04 WBC (3.8-10.6) k/uL Neutrophils # (1.3-7.7) k/uL APTT (22.0-30.0) sec BUN (7-17) mg/dL Creatinine (0.52-1.04) mg/dL Glucose (74-99) mg/dL POC Glucose (mg/dL) 203 H (75-99) mg/dL Urine Appearance (Clear) Urine Protein (Negative) Ur Leukocyte Esterase (Negative) Urine WBC (0-5) /hpf Ur Squamous Epith Cells (0-4) /hpf Urine Bacteria (None) /hpf Urine Mucus (None) /hpf Assessment and Plan Plan: Assessment: #1. Nonoliguric acute kidney injury mostly prerenal secondary to diuresis. Creatinine improved to 1.22 today. Baseline creatinine is near 1. #2. Chronic kidney disease stage II. Patient states she has chronic kidney disease which is due to underlying diabetes mellitus and cardiorenal syndrome. Baseline creatinine is near 1. Urinalysis does reveal trace proteinuria without any hematuria. #3. Volume overload. Improving. #4. Moderate aortic stenosis and pulmonary hypertension. #5. Diabetes mellitus. Plan: Continue Lasix 20 mg orally twice daily. 40 mg IV Lasix once today in addition. Continue with low-salt diet. Repeat electrolytes in the morning. She did receive IV dye on January 27 for CTA. There is no evidence of contrast- induced nephropathy at this time. Continue to monitor renal function and urine output.
--- NOTE | 2017-01-29 09:29 | P.PN ---
Subjective Principal diagnosis: CHF This is a pleasant 82-year-old female with history of diabetes, hypertension, hyperlipidemia, who presented to the hospital with symptoms of progressively worsening shortness of breath. According to the patient, she is prescribed to take Lasix at home, however has not taken it as prescribed because of the irritation of having to urinate so frequently. Chest x-ray on admission here showed congestive heart failure exacerbation as well as cardiomegaly with central vascular congestion. BNP level 1070.. She was initiated on IV Lasix. She diuresed well through the night. Creatinine this morning 1.3, up from 0.9. D-dimer was elevated and for this reason a CT of the chest was requested. There was no evidence of pulmonary embolism. It did reveal congestive heart failure with a moderate right side pleural effusion. Patient was also found to have a 11.6 mm nodule in the right midlung laterally. Blood pressure this morning 133/63 with a heart rate in the 70s. She is 92% on 6 L of oxygen. At the time of my examination this morning, patient states that her breathing is significantly improved. Echocardiogram with Doppler study was performed which revealed an ejection fraction of 55-60%. Moderate aortic stenosis. Severe mitral annular calcification noted. Small generalized pericardial effusion present. Objective - Vital Signs Vital signs: Vital Signs Temp 97.7 F 01/29/17 08:00 Pulse 77 01/29/17 08:00 Resp 18 01/29/17 04:00 BP 154/83 01/29/17 08:00 Pulse Ox 92 L 01/29/17 08:00 Intake & Output 01/28/17 01/29/17 01/29/17 18:59 06:59 18:59 Intake Total 400 141.137 Output Total 250 500 Balance 150 -358.863 Weight 75.1 kg 75.7 kg Intake: IV 18 Heparin Sodium,Porcine/ 18 D5w Pmx 25,000 unit In Dextrose/Water 1 500ml. bag @ 12 UNITS/KG/HR 18. 02 mls/hr IV .Q24H ULISES Rx #:[id number] Intake, IV Titration 123.137 Amount Heparin Sodium,Porcine/ 123.137 D5w Pmx 25,000 unit In Dextrose/Water 1 500ml. bag @ 12 UNITS/KG/HR 18. 02 mls/hr IV .Q24H ULISES Rx #:[id number] Oral 400 Output: Urine 250 500 Other: Voiding Method Urinal # Voids 500 - Exam PHYSICAL EXAMINATION: HEENT: Head is atraumatic, normocephalic. Pupils equal, round. Neck is supple. There is no elevated jugular venous pressure. HEART EXAMINATION: Heart S1 and S2 systolic ejection murmur is heard. CHEST EXAMINATION: Lungs are clear with mild diminished air entry to the right posterior base ABDOMEN: Soft, nontender. Bowel sounds are heard. No organomegaly noted. EXTREMITIES: 2+ peripheral pulses with trace evidence of peripheral edema and no calf tenderness noted. NEUROLOGIC patient is awake, alert and oriented -3. . - Labs CBC & Chem 7: 01/29/17 05:45 01/29/17 05:45 Labs: Abnormal Lab Results - Last 24 Hours (Table) 01/28/17 01/28/17 01/28/17 Range/Units 11:47 16:46 19:18 WBC 11.5 H (3.8-10.6) k/uL Neutrophils # 9.1 H (1.3-7.7) k/uL APTT (22.0-30.0) sec BUN (7-17) mg/dL Creatinine (0.52-1.04) mg/dL Glucose (74-99) mg/dL POC Glucose (mg/dL) 162 H 238 H (75-99) mg/dL Urine Appearance (Clear) Urine Protein (Negative) Ur Leukocyte Esterase (Negative) Urine WBC (0-5) /hpf Ur Squamous Epith Cells (0-4) /hpf Urine Bacteria (None) /hpf Urine Mucus (None) /hpf 01/28/17 01/29/17 01/29/17 Range/Units 20:47 00:05 05:45 WBC (3.8-10.6) k/uL Neutrophils # (1.3-7.7) k/uL APTT 39.0 H (22.0-30.0) sec BUN 32 H (7-17) mg/dL Creatinine 1.22 H (0.52-1.04) mg/dL Glucose 181 H (74-99) mg/dL POC Glucose (mg/dL) 170 H (75-99) mg/dL Urine Appearance (Clear) Urine Protein (Negative) Ur Leukocyte Esterase (Negative) Urine WBC (0-5) /hpf Ur Squamous Epith Cells (0-4) /hpf Urine Bacteria (None) /hpf Urine Mucus (None) /hpf 01/29/17 01/29/17 01/29/17 Range/Units 05:45 05:45 06:00 WBC 11.4 H (3.8-10.6) k/uL Neutrophils # 8.7 H (1.3-7.7) k/uL APTT 68.7 H (22.0-30.0) sec BUN (7-17) mg/dL Creatinine (0.52-1.04) mg/dL Glucose (74-99) mg/dL POC Glucose (mg/dL) (75-99) mg/dL Urine Appearance Cloudy H (Clear) Urine Protein Trace H (Negative) Ur Leukocyte Esterase Large H (Negative) Urine WBC 19 H (0-5) /hpf Ur Squamous Epith Cells 33 H (0-4) /hpf Urine Bacteria Few H (None) /hpf Urine Mucus Rare H (None) /hpf 01/29/17 Range/Units 06:04 WBC (3.8-10.6) k/uL Neutrophils # (1.3-7.7) k/uL APTT (22.0-30.0) sec BUN (7-17) mg/dL Creatinine (0.52-1.04) mg/dL Glucose (74-99) mg/dL POC Glucose (mg/dL) 203 H (75-99) mg/dL Urine Appearance (Clear) Urine Protein (Negative) Ur Leukocyte Esterase (Negative) Urine WBC (0-5) /hpf Ur Squamous Epith Cells (0-4) /hpf Urine Bacteria (None) /hpf Urine Mucus (None) /hpf Assessment and Plan (1) Diastolic CHF, acute on chronic Status: Acute (2) Aortic stenosis Status: Acute (3) Hypertension Status: Acute (4) Diabetes Status: Acute (5) Hyperlipidemia Status: Acute (6) Lung nodule Status: Acute Plan: From cardiology's perspective, we will recommend to continue the patient on her current medications. From cardiology's perspective she may be able to be discharged once cleared by the primary, we will make her a follow-up appointment with Dr. Elva Casillas in the office post discharge. DNP note has been reviewed, I agree with a documented findings and plan of care. Patient was seen and examined.
--- NOTE | 2017-01-29 11:31 | PN ---
DATE OF SERVICE: 01/28/2017 INTERVAL HISTORY: Ms. Burroughs is an 82 -year-old female with known history of CHF with diastolic dysfunction, CKD Stage III, diabetes mellitus and peripheral neuropathy, admitted to the hospital with worsening short of breath. The patient also has a history of moderate aortic stenosis and normal ejection fraction. Patient was being diuresed with IV Lasix 20 mg t.i.d. and her kidney function worsened with creatinine level of 1.3. Otherwise, the patient did improve symptomatically. Denied any short of breath. Able to ambulate with short of breath now. Lasix dose has been decreased to 20 mg b.i.d. and cardiology and nephrology has been following this patient. Denied any complaints of chest pain. No worsening shortness of breath. No fever. No chills. No acute overnight issues. REVIEW OF SYSTEMS: CONSTITUTIONAL: No fever. No chills. RESPIRATORY: No cough or sputum production. CARDIOVASCULAR: No chest pain or short of breath. ABDOMEN: No nausea or vomiting, abdominal pain. GENITOURINARY: Negative. ENDOCRINE: Negative. PSYCHIATRY: Negative. ( ). CURRENT MEDICATIONS: Reviewed. PHYSICAL EXAMINATION: An 82-year-old female, lying in bed comfortably, awake, alert and oriented times three. Appears in no apparent distress. VITALS: Blood pressure is 109/56, pulse is 72, respirations 20, temperature afebrile, pulse ox 90% on 6 liters nasal cannula. HEENT: Atraumatic. Normocephalic. Neck is supple. No JVD. CVS: S1, S2 heard. No murmurs, no gallop, no rub. LUNGS: Bilateral air entry is present. Decreased breath sounds bilateral basally. Nonlabored breathing. No wheezing. No crackles noted. ABDOMEN: Soft, nontender. Bowel sounds present. DEPARTMENT SUPERVISOR: Awake, alert and oriented x3. No focal deficit. EXTREMITIES: No edema. Pulses palpable bilaterally. No clubbing or cyanosis. PSYCHIATRIC: Cooperative. LABORATORY DATA: WBC 10.8, hemoglobin 11.1, platelets 258. Sodium 136, potassium 4.4, chloride 100, bicarb is 27. BUN 28, creatinine 1.3, blood sugar is 203 and troponin 0.107. IMPRESSION: 1. Acute on chronic congestive heart failure with diastolic dysfunction due to valvular heart disease. 2. Moderate aortic valve stenosis. 3. Acute on chronic kidney disease, stage III. 4. Nonoliguric acute kidney injury, most likely prerenal with diuresis 5. Pulmonary edema, improved. 6. Elevated troponin, possible non-ST elevation myocardial infarction. 7. Diabetes type 2 [id number]-[id number] HbA1C 7.0. 8. Diabetic peripheral neuropathy and retinopathy. 9. Deep venous thrombosis prophylaxis, Heparin subcu. DISCUSSION AND PLAN: Patient will be continued on current management and Lasix dose has been decreased to 20 mg b.i.d. We will continue with ( ) for renal function. Nephrology and cardiology on board. A 2-D echo was done. Continue with insulin dosing and further recommendations based on clinical course. Anticipate discharge in the next 24 hours with improvement in renal function. MTDD
[2017-01-29 11:57] LABS: Glucose,Whole Blood 230 mg/dL (75-99)
[2017-01-29] MEDS ORDERED: FUROSEMIDE 10 MG/ML 4 ML VIAL IV STA (15:40)
[2017-01-29 16:51] LABS: Glucose,Whole Blood 144 mg/dL (75-99)
[2017-01-29 20:40] LABS: Glucose,Whole Blood 168 mg/dL (75-99)
[2017-01-29] MEDS: TERAZOSIN 5 MG CAP PO SCH (20:47)
[2017-01-29] MEDS: PRAVASTATIN SODIUM 40 MG TAB PO SCH (20:49)
[2017-01-30 05:44] VITALS: PULSE 74; RESP 16
[2017-01-30] MEDS: glipiZIDE 10 MG TAB PO SCH ×2 (06:49→15:04)
[2017-01-30] MEDS: INSULIN LISPRO (humaLOG) 300 UNIT/3 ML VIAL SQ SCH ×2 (06:49→11:56)
[2017-01-30 06:51] LABS: Glucose,Whole Blood 131 mg/dL (75-99)
[2017-01-30 07:09] LABS: Basophils # (A) 0.1 k/uL (0-0.2); Basophils % (A) 1 %; CH 28.2; CHCM 32.6; Eosinophils # (A) 0.4 k/uL (0-0.7); Eosinophils % (A) 4 %; HDW 2.55; HGB 11.8 gm/dL (11.4-16.0); Luc # (Auto) 0.22; Luc % (Auto) 2; Lymphocytes # (A) 0.7 k/uL (1.0-4.8); Lymphocytes % (A) 7 %; MCH 27.8 pg (25.0-35.0); MCV 86.9 fL (80.0-100.0); Mean Platelet Volume 6.4; Monocytes # (A) 0.9 k/uL (0-1.0); Monocytes % (A) 9 %; Neutrophils % (A) 78 %; RBC 4.26 m/uL (3.80-5.40); RDW 13.1 % (11.5-15.5); WBC 10.3 k/uL (3.8-10.6); WBC (Perox) 10.66
[2017-01-30 07:28] LABS: Anion Gap 10 mmol/L; Calcium 8.8 mg/dL (8.4-10.2); Carbon Dioxide 27 mmol/L (22-30); Chloride 100 mmol/L (98-107); Glucose 120 mg/dL (74-99); Non-African American GFR(MDRD) 56 (>60 ml/min/1.73 sqM); Sodium 137 mmol/L (137-145)
[2017-01-30 07:59] LABS: Blood Urea Nitrogen 26 mg/dL (7-17); Potassium 4.2 mmol/L (3.5-5.1)
[2017-01-30] MEDS: FUROSEMIDE 20 MG TAB PO SCH ×2 (08:18→15:04)
[2017-01-30] MEDS: amLODIPine 10 MG TAB PO SCH (08:18)
[2017-01-30] MEDS: ATENOLOL 50 MG TAB PO SCH (08:18)
[2017-01-30] MEDS: LINAGLIPTIN 5 MG TABLET PO SCH (08:19)
[2017-01-30] MEDS ORDERED: FAMOTIDINE 20 MG TAB PO SCH (09:00)
--- NOTE | 2017-01-30 11:44 | PN ---
DATE OF SERVICE: 01/29/2017 Milliseconds. Burroughs is an 82-year-old female with a known history of congestive heart failure with diastolic dysfunction, CKD stage III< diabetes mellitus insulin dependent, peripheral neuropathy, admitted to the hospital with worsening short of breath. Patient was initially treated with IV Lasix with improvement of her symptoms. Lasix has been changed to 20 minutes b.i.d. due to acute kidney injury. Creatinine increased to 1.3. Today creatinine level came down to 1.2. Otherwise patient is still having short of breath and requiring high flow nasal cannula at 3-L permanent. Patient was given an extra dose of 40 mg IV Lasix today. Patient is symptomatically improved otherwise. No fever. No chills. No complaints of chest pain. Patient does have underlying short of breath and worsening shortness of breath with walking to the bathroom. No other acute overnight issues. REVIEW OF SYSTEMS: CONSTITUTIONAL: No fever. No chills. RESPIRATORY: No cough or sputum production. CARDIOVASCULAR: No chest pain or shortness of breath. ABDOMEN: No nausea, vomiting or abdominal pain. GENITOURINARY: Negative. ENDOCRINE: Negative. PSYCHIATRIC: Negative. SKIN: Negative. All other fourteen point review of systems negative except as above. CURRENT MEDICATIONS: Reviewed. PHYSICAL EXAMINATION: An 82-year-old female lying in bed comfortably, awake, alert, oriented x3. VITALS: Blood pressure is 141/64, pulse 76, respirations 20, temperature afebrile, pulse ox is 92% on 4 L nasal cannula. HEENT: Atraumatic, normocephalic. Neck is supple. No JVD. CVS: S1, S2 heard. No murmurs, no gallop. LUNGS: Bilateral air entry is present. Basilar crackles positive. Nonlabored breathing. No wheezing. ABDOMEN: Soft, nontender. Bowel sounds present. COP EXAMINER: Awake, alert and oriented x3. No focal deficit. EXTREMITIES: No edema. Pulses palpable bilaterally. No clubbing or cyanosis. PSYCHIATRIC: Cooperative. LABORATORY DATA: WBC for 11.4, hemoglobin 11.7, platelets 258. Sodium 138, potassium 4.2, chloride 99, bicarb is 28. BUN 32, creatinine 1.22. UA is cloudy, large leukocyte esterase, few WBC and squamous epithelial cells of 33; possible contaminated sample. Urine culture was ordered. IMPRESSION: 1. Acute on chronic congestive heart failure with diastolic dysfunction due to valvular heart disease with moderate aortic valve stenosis. 2. Acute kidney injury, most likely prerenal with diuresis. 3. Acute on chronic kidney disease, stage III. 4. Pulmonary edema and pleural effusions. 5. Elevated troponin, possible non-ST elevated myocardial infarction. 6. Type 2 diabetes mellitus, [id number]. HbA1c 7.0. 7. Diabetic peripheral neuropathy and retinopathy. 8. Deep venous thrombosis prophylaxis on heparin subcu. DISCUSSION AND PLAN: An 82-year-old female admitted to the hospital with worsening shortness of breath. Currently, patient is medically improved, but still having basilar crackles and an extra 40 mg IV Lasix was given today. Will monitor renal function. We will continue current management. Nephrology is following the patient. Cardiology is following the patient. Further recommendations based on clinical course.
[2017-01-30 11:55] LABS: Glucose,Whole Blood 165 mg/dL (75-99)
[2017-01-30 15:37] VITALS: BP 142/65; TEMP 97.6
[2017-01-30 16:31] LABS: Glucose,Whole Blood 228 mg/dL (75-99)
--- NOTE | 2017-02-02 05:27 | DS ---
DATE OF ADMISSION: 01/27/2017 DATE OF DISCHARGE: 01/30/2017 DISCHARGE DIAGNOSES: 1. Acute on chronic congestive heart failure with diastolic dysfunction due to valvular heart disease with moderate aortic valve stenosis. 2. Acute kidney injury, most likely prerenal with diuresis, improved now. 3. Acute on chronic kidney disease, stage III. 4. Pulmonary edema and pleural effusion on admission. 5. Elevated troponin, possible non-ST elevation myocardial infarction. 6. Type 2 diabetes mellitus, noninsulin dependent. HbA1c 7.0. 7. Diabetic peripheral neuropathy and retinopathy. 8. Deep venous thrombosis prophylaxis, heparin subcu. HOSPITAL COURSE: Ms. Burroughs is an 82-year-old female with known history of CHF and valvular heart disease with aortic stenosis moderate, admitted to the hospital with worsening short of breath. The patient was found to have pulmonary edema and pleural effusion on chest x-ray. Patient was initially started on IV Lasix with improvement of symptoms, but her renal function worsened with creatinine level went up to 1.3. Lasix has been changed to p.o. and continued on Lasix 20 mg b.i.d. Patient did improve symptomatically and her renal function with creatinine level came down to ( ). Patient was seen by Cardiology and Nephrology. Patient is otherwise symptomatically much improved now and is stable to be discharged home. DISCHARGE PHYSICAL EXAMINATION: An 82-year-old female, lying in bed, comfortably, awake, alert, oriented x3 appears to be in no apparent distress. VITALS: Blood pressure is 142/65, pulse is 69, respiratory rate 16, temperature afebrile, pulse ox 90% on room air. Laboratory data reviewed. BUN 26, creatinine 0.96, calcium 8.8. Discharge physical examination done. Discharge medications include: 1. Atenolol 100 mg p.o. b.i.d. 2. Flaxseed oil 3000 mg p.o. at bedtime. 3. Imdur 30 mg p.o. b.i.d. 4. Linagliptin 5 mg p.o. daily. 5. Spring 3fatty acids 3 capsules q.a.m. 6. Pravastatin 40 mg p.o. at bedtime. 7. Ranitidine 300 mg p.o. daily. 8. Terazosin 5 mg p.o. at bedtime. 9. Amlodipine 10 mg p.o. daily. 10. Glucotrol 10 mg p.o. a.c. b.i.d. 11. Lasix 20 mg p.o. b.i.d. Patient will be discharged home in stable condition. Activity as tolerated. Heart healthy diet. Follow with Dr. Casillas in one week. Follow with Dr. Doan in 1 to 2 days.
== END 2017-01-30 17:33 | disposition home or self-care (01) | DRG 280 ==
LOC: EC 07:20 → 6SEL 11:02
PROVIDERS: ADMIT Hospitalist; ATTEND Hospitalist
DX: I13.0 Hypertensive heart and chronic kidney disease with heart failure and stage 1 through stage 4 chronic kidney disease, or unspecified chronic kidney disease (principal); I50.33 Acute on chronic diastolic (congestive) heart failure; I21.4 Non-ST elevation (NSTEMI) myocardial infarction; N17.9 Acute kidney failure, unspecified; I31.3 Pericardial effusion (noninflammatory); I42.9 Cardiomyopathy, unspecified; E11.22 Type 2 diabetes mellitus with diabetic chronic kidney disease; E11.42 Type 2 diabetes mellitus with diabetic polyneuropathy; E11.319 Type 2 diabetes mellitus with unspecified diabetic retinopathy without macular edema; E78.5 Hyperlipidemia, unspecified; I08.0 Rheumatic disorders of both mitral and aortic valves; I27.2 Other secondary pulmonary hypertension; K21.9 Gastro-esophageal reflux disease without esophagitis; N18.3 Chronic kidney disease, stage 3 (moderate); T50.2X5A Adverse effect of carbonic-anhydrase inhibitors, benzothiadiazides and other diuretics, initial encounter; Z79.4 Long term (current) use of insulin; Z79.899 Other long term (current) drug therapy; Z82.49 Family history of ischemic heart disease and other diseases of the circulatory system; Z87.891 Personal history of nicotine dependence; R91.1 Solitary pulmonary nodule
CPT/HCPCS: 36415; 71020; 71275; 80048; 80053; 81001; 82550; 82553; 83036; 83735; 83880; 84484; 85025; 85379; 85610; 85730; 87040; 93005; 93306; 94640; 94760; 96374; 99291

== ENCOUNTER → 2017-07-14 | Outpatient (CLI) | payer MEDICARE ==
[2017-07-14 12:49] LABS: CH 28.6; CHCM 32.2; HCT 40.2 % (34.0-46.0); HDW 2.33; HGB 13.5 gm/dL (11.4-16.0); MCHC 33.6 g/dL (31.0-37.0); MCV 89.2 fL (80.0-100.0); Mean Platelet Volume 6.6; RBC 4.51 m/uL (3.80-5.40); RDW 13.8 % (11.5-15.5)
[2017-07-14 13:18] LABS: Potassium 4.9 mmol/L (3.5-5.1)
== END | disposition home or self-care (01) ==
LOC: LABPAT 11:43
PROVIDERS: ATTEND Internal Medicine Interventional Cardiology
DX: Z01.812 Encounter for preprocedural laboratory examination (principal); I35.0 Nonrheumatic aortic (valve) stenosis
CPT/HCPCS: 80051; 82565; 84520; 85027

== ENCOUNTER 2017-07-20 07:40 | Day surgery (SDC) | payer MEDICARE ==
[2017-07-15 13:01] VITALS: BMI 30.9
[2017-07-20] MEDS ORDERED: SODIUM CHLORIDE 0.9% 1,000 ML IV SCH ×3 (07:48→10:45)
[2017-07-20] MEDS ORDERED: fentaNYL (PF) 50 MCG/ML 2 ML AMP ONE (08:07)
[2017-07-20] MEDS ORDERED: MIDAZOLAM 2 MG/2 ML VIAL ONE ×2 (08:07→10:35)
[2017-07-20 08:19] LABS: Glucose,Whole Blood 181 mg/dL (75-99)
[2017-07-20] MEDS: BENZOCAINE SPRAY 1 SPRAY CAN MUCOUS MEM ONE ×2 (08:23→08:29)
[2017-07-20] MEDS ORDERED: MIDAZOLAM 2 MG/2 ML VIAL IV ONE ×2 (08:28→10:55)
[2017-07-20] MEDS ORDERED: fentaNYL (PF) 50 MCG/ML 2 ML AMP IV ONE (08:28)
[2017-07-20 08:37] VITALS: RESP 20; TEMP 97.8
[2017-07-20 08:45] LABS: Calcium 9.6 mg/dL (8.4-10.2); Potassium 4.6 mmol/L (3.5-5.1)
--- NOTE | 2017-07-20 08:46 | P.TEE ---
Indications for Procedure(s): Assessment of aortic stenosis Preoperative Diagnosis: Postoperative Diagnosis: Procedure(s) Performed: Description of Procedure(s): Patient is scheduled to have a JUAN, this morning. Patient was brought to the lab and was prepped and in the usual fashion. Patient was given IV conscious sedation with 1 mg of Versed and 25 g of fentanyl. The throat was sprayed with Cetacaine. However, the procedure was abandoned because of the technical difficulties with the JUAN probe and the echo machine. Patient will go on to have a cardiac catheterization. The JUAN will be rescheduled when it's possible. Patient remained stable throughout the procedure
[2017-07-20] MEDS ORDERED: amLODIPine 10 MG TAB PO STA (09:16)
[2017-07-20] MEDS ORDERED: ALPRAZolam 0.5 MG TAB PO PRN (09:17)
[2017-07-20] MEDS ORDERED: ASPIRIN 325 MG TAB PO STA (09:17)
[2017-07-20] MEDS ORDERED: SODIUM CHLORIDE 0.9% 1,000 ML in EMPTY BAG 1 BAG IV ONE (09:17)
[2017-07-20] MEDS ORDERED: ALPRAZolam 0.25 MG TAB PO PRN (09:17)
[2017-07-20] MEDS ORDERED: diphenhydrAMINE 50 MG/ML 1 ML VIAL ONE (10:35)
[2017-07-20] MEDS ORDERED: VERAPAMIL 2.5 MG/ML 2 ML AMP ONE (10:35)
[2017-07-20] MEDS ORDERED: LIDOCAINE 2% INJ 20 MG/ML (20 ML MDV) ONE (10:35)
[2017-07-20] MEDS ORDERED: SODIUM CHLORIDE 0.9% 1,000 ML IV ONE (10:39)
[2017-07-20] MEDS ORDERED: diphenhydrAMINE 50 MG/ML 1 ML VIAL IVP ONE (10:54)
[2017-07-20] MEDS ORDERED: LIDOCAINE 2% INJ 20 MG/ML SQ ONE (10:59)
[2017-07-20] MEDS ORDERED: HEPARIN SODIUM 1,000 UN/ML (10ML VL) ONE (11:00)
[2017-07-20] MEDS: VERAPAMIL SYRINGE (5 MG/10 ML) INTRAARTER ONE ×2 (11:02→11:13)
[2017-07-20] MEDS ORDERED: HEPARIN SODIUM 1,000 UN/ML (10ML VL) IV ONE (11:03)
[2017-07-20] MEDS ORDERED: IODIXANOL 320 MG/ML 100 ML INTRAARTER ONE (11:32)
[2017-07-20] MEDS ORDERED: RX INFO: IV CONTRAST WAS GIVEN 1 EACH MISC MISCELLANE PRN (15:31)
[2017-07-20 15:54] LABS: Glucose,Whole Blood 145 mg/dL (75-99)
[2017-07-20 16:51] LABS: Glucose,Whole Blood 115 mg/dL (75-99)
[2017-07-20] MEDS ORDERED: glipiZIDE 10 MG TAB PO SCH (17:30)
[2017-07-20 17:57] VITALS: BP 157/74
[2017-07-20] MEDS ORDERED: ISOSORBIDE MONONITRATE ER 30 MG TAB.ER.24H PO SCH (21:00)
[2017-07-20] MEDS ORDERED: NON-FORMULARY DRUG (Atenolol [Atenolol] 100 MG) PO SCH (21:00)
[2017-07-20] MEDS ORDERED: FLAXSEED OIL PO SCH (21:00)
[2017-07-20] MEDS ORDERED: TERAZOSIN 5 MG CAP PO SCH (21:00)
--- NOTE | 2017-07-21 01:42 | CC ---
CARDIAC CATHETERIZATION REPORT DATE OF PROCEDURE: 07/20/2017. PROCEDURE: Coronary angiography. PERFORMED BY: Dr. Verenice Casillas. CLINICAL INFORMATION: Mrs. Della Burroughs is an 82-year-old lady with a history of type 2 diabetes, hypertension, hypercholesterolemia, moderate aortic stenosis. Was advised to have a cardiac cath and a transesophageal echo and brought in for the procedure electively. PROCEDURE NOTE: The patient's JUAN could not be performed because of technical reasons with the probe and the machine not having adequate communication. Therefore the procedure was canceled. PROCEDURE: Under local anesthesia and strict aseptic precautions a 6-Yoruba introducer was placed in the right radial artery. I used a Ultimata 1 catheter to perform selective coronary angiography of the left coronary artery. I used initially Agnes catheters and then eventually a Sandeep posterior catheter and with this I was able to cannulate the right coronary artery. I did not cross the aortic valve. LV pressures were not obtained and LV-gram was not performed. CORONARY ANGIOGRAPHY FINDINGS: Right coronary artery: This is a technically a dominant vessel has about a 30-35% ostial stenosis. After which the caliber of the vessel improves and there is moderate calcification. In the midportion there is evidence of about 40% narrowing after which the caliber of the vessel improves and then distally bifurcates into a large PDA and PLV both of which supply a fair amount of myocardium. Both the PDA and PLV supply a significant amount of myocardium and have minor irregularities. The RCA therefore as an ostial 35-40% and mid 40% lesion and this was a dominant vessel. Left main coronary artery: Short patent disease-free vessel that has mild narrowing towards the distal portion of about 15%. It bifurcates into LAD and circumflex. Left main itself has no significant lesion but there is a moderate 15% plaque. Left anterior descending coronary artery: Good caliber vessel. Extends along the antral wall and gives supplies a sizable amount of myocardium. In the midportion it gives off a large diagonal branch and then continues to the apex. The entire LAD has minor irregularities. No significant disease. In the midportion there is about a 35% narrowing. LAD therefore is a good distribution vessel with large diagonal for 35% mid lesion. Mild to moderate calcification. Left posterior circumflex coronary artery: Technically a nondominant vessel has a proximal lesion of about 55% eccentric in nature. It gives off an obtuse marginal. Then runs in the AV groove. It comes out as a posterior lateral branch. The posterolateral branch has a 40% lesion. Proximal circumflex after a high obtuse marginal, and a small left atrial circumflex branch is eccentric 55% stenosis which I do not believe is critical but the plaque is moderate. Left ventriculogram: This was not performed. FINAL IMPRESSION: This patient has a right dominant system with a 35-40% proximal/ostial lesion and a mid lesion of the dominant RCA. No critical lesions are noted. Circumflex has a 55% proximal lesion not dominant. First obtuse marginal has a 40% lesion and for continuation of the circumflex in the AV groove before posterior lateral branch has another 40% lesion. LAD generally free of significant disease and a good size diagonal is free of significant disease. Left ventriculogram was not performed. RECOMMENDATION: I am recommending aggressive medical therapy for now but we will perform a transesophageal echo next week electively. Patient will be discharged later on today if she remains stable. A Vasc band was applied as per protocol. Good hemostasis was secured. Saturation of the fingers of the right hand was about 95%. Moderate conscious sedation was provided with a combination of Versed and Benadryl for a total duration of 45 minutes. The patient tolerated procedure well without complications. MMODL / IJN: [id number] /
--- NOTE | 2017-07-21 01:42 | CC ---
CARDIAC CATHETERIZATION REPORT Dear Dr. Doan Thank you for the opportunity to partake in the care of Mrs Burroughs. This lady has moderate noncritical coronary disease for which I am recommending medical therapy and I will have to bring her back for transesophageal echo sometime next week and then will make specific recommendations. But for now, we will opt to continue aggressive medical therapy with risk factor modification. As you recall, she has a history of worsening a gradient and also more significant murmur suggestive of aortic stenosis and this will be evaluated by JUAN. Today the probe was not functioning and therefore the procedure was not performed. Coronary mcqueen we will pursue medical therapy. She does have a moderate lesion in the circumflex for which I am recommending medical therapy right now. Following the JUAN I will make specific recommendations. Thank you for your referral and please call for questions. With kind regards, Sincerely yours, DARVIN / JEFFN: [id number] /
[2017-07-21] MEDS ORDERED: FERROUS SULFATE 325 MG TAB PO SCH (09:00)
[2017-07-21] MEDS ORDERED: D3 PO SCH (09:00)
[2017-07-21] MEDS ORDERED: MAG11 PO SCH (09:00)
[2017-07-21] MEDS ORDERED: CAL PO SCH (09:00)
[2017-07-21] MEDS ORDERED: NON-FORMULARY DRUG (Vitamin E [Vitamin E] 1,000 UNIT) PO SCH (09:00)
[2017-07-21] MEDS ORDERED: NON-FORMULARY DRUG (Omega-3 Fatty Acids/Fish Oil [Fish Oil 1,000 Mg Softgel] 3 CAP) PO SCH (09:00)
[2017-07-21] MEDS ORDERED: BOR PO SCH (09:00)
[2017-07-21] MEDS ORDERED: CHOLECALCIFEROL 1,000 UNIT TAB PO SCH (09:00)
[2017-07-21] MEDS ORDERED: amLODIPine 10 MG TAB PO SCH (09:00)
[2017-07-21] MEDS ORDERED: COP PO SCH (09:00)
[2017-07-21] MEDS ORDERED: ASCORBIC ACID 500 MG TAB PO SCH (09:00)
[2017-07-21] MEDS ORDERED: NON-FORMULARY DRUG (Ranitidine Hcl [Zantac] 300 MG) PO SCH (09:00)
[2017-07-21] MEDS ORDERED: NON-FORMULARY DRUG (Cyanocobalamin (Vitamin B-12) [Vitamin B-12] 1,000 MCG) PO SCH (09:00)
[2017-07-21] MEDS ORDERED: ZINC PO SCH (09:00)
[2017-07-21] MEDS ORDERED: FUROSEMIDE 20 MG TAB PO SCH (09:00)
[2017-07-21] MEDS ORDERED: LINAGLIPTIN 5 MG TABLET PO SCH (09:00)
[2017-07-21] MEDS ORDERED: MANG PO SCH (09:00)
== END 2017-07-20 18:30 | disposition home or self-care (01) ==
LOC: CATHCVL 07:40
PROVIDERS: ATTEND Internal Medicine Interventional Cardiology
DX: I35.0 Nonrheumatic aortic (valve) stenosis (principal); I10 Essential (primary) hypertension; E78.00 Pure hypercholesterolemia, unspecified; E11.9 Type 2 diabetes mellitus without complications; Z79.84 Long term (current) use of oral hypoglycemic drugs; I25.10 Atherosclerotic heart disease of native coronary artery without angina pectoris; I25.84 Coronary atherosclerosis due to calcified coronary lesion; Z87.891 Personal history of nicotine dependence; Z79.899 Other long term (current) drug therapy; Z88.8 Allergy status to other drugs, medicaments and biological substances
CPT/HCPCS: 93454; 80048; C1894; J2001; J2250; J1200; Q9967; J3010; J1644

== ENCOUNTER 2018-06-29 08:29 | Day surgery (SDC) | payer MEDICARE ==
[2018-06-22 15:27] VITALS: BMI 31.2
[~2018-06-29 08:29] MED LIST: ALPRAZolam 0.25 MG TAB PO PRN; ALPRAZolam 0.5 MG TAB PO PRN; ASPIRIN 325 MG TAB PO STA; ATORVASTATIN 80 MG TAB PO STA; NITROGLYCERIN SL TABS 0.4 MG TAB SUBLINGUAL PRN; SODIUM CHLORIDE 0.9% 1,000 ML in EMPTY BAG 1 BAG IV ONE
[2018-06-29 10:25] LABS: Calcium 9.6 mg/dL (8.4-10.2); Potassium 5.1 mmol/L (3.5-5.1)
[2018-06-29] MEDS ORDERED: LIDOCAINE 1% INJ 10MG/ML (20 ML MDV) ONE (12:50)
[2018-06-29] MEDS ORDERED: IV FLUID CONTINUATION 650 ML IV ONE (13:02)
[2018-06-29] MEDS ORDERED: diphenhydrAMINE 50 MG/ML 1 ML VIAL ONE (13:11)
[2018-06-29] MEDS ORDERED: MIDAZOLAM 2 MG/2 ML VIAL ONE (13:11)
[2018-06-29] MEDS ORDERED: MIDAZOLAM 2 MG/2 ML VIAL IV ONE (13:12)
[2018-06-29] MEDS ORDERED: diphenhydrAMINE 50 MG/ML 1 ML VIAL IVP ONE (13:13)
[2018-06-29] MEDS ORDERED: LIDOCAINE 1% INJ 10MG/ML (20 ML MDV) SQ ONE (13:15)
[2018-06-29] MEDS ORDERED: NITROGLYCERIN SL TABS 0.4 MG TAB SUBLINGUAL ONE ×2 (13:27→13:28)
[2018-06-29 13:45] LABS: O2 Sat Blood Gas 63.9 %
[2018-06-29 13:47] LABS: O2 Sat Blood Gas 89.5 %
[2018-06-29 13:49] LABS: O2 Sat Blood Gas 65.5 %
[2018-06-29 13:51] LABS: O2 Sat Blood Gas 65.9 %
[2018-06-29] MEDS ORDERED: IOPAMIDOL-370 100ML BTL INJ ONE (13:52)
[2018-06-29] MEDS ORDERED: RX INFO: IV CONTRAST WAS GIVEN 1 EACH MISC MISCELLANE PRN (14:23)
[2018-06-29] MEDS ORDERED: SODIUM CHLORIDE 0.9% 1,000 ML IV SCH (14:30)
[2018-06-29 16:43] LABS: Glucose,Whole Blood 167 mg/dL (75-99)
--- NOTE | 2018-06-29 16:45 | CC ---
CARDIAC CATHETERIZATION REPORT DATE OF SERVICE: 06/29/2018. PROCEDURE: Right and left heart catheterization and coronary angiography. PERFORMED BY: Dr. Verenice Casillas SEDATION: Moderate conscious sedation time was 35 minutes. Patient was administered Versed and Benadryl. Oxygen saturation, hemodynamics and EKG were monitored closely. CLINICAL INFORMATION: Mrs. Della Burroughs is an 83-year-old lady with type 2 diabetes, hypertension, hyperlipidemia, who is known to have aortic stenosis and underwent a cardiac cath and JUAN in July of last year. The JUAN which was a difficult study, revealed moderate to severe aortic stenosis and she has been having increasing symptoms of shortness of breath and therefore she was advised coronary angiography with the understanding that she may be a candidate for TAVR procedure given her moderate to high risk situation. Risks, benefits, options were explained to the patient and daughter and she was brought in for the procedure electively. PROCEDURE NOTE: Under local anesthesia and strict aseptic precautions, a 6-Armenian introducer was placed in the right femoral artery. An 8-Armenian introducer in the right femoral vein. Using a balloon tipped floatation catheter, I performed right heart catheterization. I checked also the saturations and the thermodilution cardiac output and Jane cardiac output were obtained. Using standard Agnes catheters, I performed coronary angiography. I made an attempt to cross the aortic valve, but the valve was very calcified and therefore I did not cross the valve. The arterial sheath was taken out and Angio-Seal used for hemostasis and manual compression was used for the venous sheath. The patient tolerated the procedure well without complication. CARDIAC CATHETERIZATION FINDINGS: The right atrial pressure was 3 mmHg. Right ventricular pressure was 52/3. The pulmonary arterial pressure was 52/20 with a mean of 32. Pulmonary capillary wedge pressure was 21 mmHg. Pulmonary arterial saturation was 65% and femoral arterial saturation was 91%. Using these numbers, the Jane cardiac output was about 4.1 L. The thermodilution cardiac output was about 4 L. There was no oxygen step-up noted. CORONARY ANGIOGRAPHY FINDINGS: Right coronary artery: Technically a calcified vessel, has no significant disease in the ostium. In the midportion there is about a 30-35 percent narrowing. There is mild to moderate calcification, distally bifurcates into a large PDA and PLV, both of which supply a sizable amount of myocardium, but there is no significant disease in the dominant RCA. The ostium has about a 30-35 percent narrowing noted. LEFT MAIN CORONARY ARTERY: This is a short, patent disease-free vessel with minor tapering towards the distally of about 20% or less. Calcified, but no significant disease in the left main. LEFT ANTERIOR DESCENDING CORONARY ARTERY: Good caliber vessel extends along the anterior wall, gives off septal branches in the midportion, gives off a good-sized diagonal branch and then at that site at the origin of the diagonal branch, there is about a 35-40 percent LAD lesion noted. Not critical. Diagonal and LAD after that are free of significant disease, run all the way towards the apex supplying a sizable amount of myocardium. LAD therefore has a 35-40 percent mid lesion, but diagonal is free of significant disease. There is moderate calcification. LEFT POSTERIOR CIRCUMFLEX CORONARY ARTERY: Technically, a nondominant vessel has about a 50% lesion at the proximal portion, very eccentric in nature, best seen in the TRISTANIAN projection. There is some calcification in the vessel. This is a moderate to severe lesion but not critical in some projections. It is also in the 50-60 percent range, but there is calcification and then it gives off an obtuse marginal branch and runs in the AV groove. The circumflex therefore has a moderate 55% proximal lesion and the first obtuse marginal has a 40% lesion. Continuation of circumflex has another 40% lesion. LEFT VENTRICULOGRAM: This was not performed. FINAL IMPRESSION: This patient has moderate, noncritical triple-vessel disease. Circumflex being the tightest lesion of about 55%. There is moderate pulmonary hypertension and cardiac output is about 4 L. There is no oxygen step-up. LV gram was not performed. RECOMMENDATION: Patient has heavily calcified aortic valve as well as the proximal aorta is heavily calcified. I do not believe she has critical CAD. She is quite frail and has significant comorbid conditions. She is a moderate to high risk and therefore she may be a candidate for percutaneous aortic valve implant. I discussed this with the patient and family and further discussion will happen as an outpatient on the and then I will have her see Dr. Calles. MMODL / IJN: [id number] /
--- NOTE | 2018-06-29 16:45 | LTR ---
DATE OF SERVICE: 06/29/[address] Doan: Thank you for the opportunity to participate in the care of Mrs. Della Burroughs. Please find enclosed my detailed cardiac cath report for your records. She has severe aortic stenosis with heavy calcification of the aorta and aortic valve. I am recommending her for evaluation for TAVR. She does not have critical CAD that requires intervention at this time. I discussed my thoughts in detail with the patient's family and further discussion will happen on the . Thank you for your referral. Please call for questions. Sincerely, DARVIN / JEFFN: [id number] /
[2018-06-29 17:02] VITALS: RESP 18; TEMP 96.9
[2018-06-29 17:06] LABS: Glucose,Whole Blood 127 mg/dL (75-99)
[2018-06-29 17:15] LABS: Glucose,Whole Blood 166 mg/dL (75-99)
[2018-06-29 19:03] VITALS: BP 165/71; PULSE 73
== END 2018-06-29 19:55 | disposition home or self-care (01) ==
LOC: PROCWHC3 08:29 → 3OBS 16:40 → PROCWHC3 19:55
PROVIDERS: ATTEND Internal Medicine Interventional Cardiology
DX: I35.0 Nonrheumatic aortic (valve) stenosis (principal); I25.10 Atherosclerotic heart disease of native coronary artery without angina pectoris; I25.84 Coronary atherosclerosis due to calcified coronary lesion; I10 Essential (primary) hypertension; E78.5 Hyperlipidemia, unspecified; E11.9 Type 2 diabetes mellitus without complications; Z87.891 Personal history of nicotine dependence; Z88.8 Allergy status to other drugs, medicaments and biological substances; I27.29 Other secondary pulmonary hypertension; Z79.84 Long term (current) use of oral hypoglycemic drugs; Z79.899 Other long term (current) drug therapy
CPT/HCPCS: 93460; 80048; 85018; 82810; 96360; 96361; 36415; C1760; C1769 ×3; C1894 ×2; J2250; J1200; J2001; Q9967

== ENCOUNTER → 2018-09-27 | Outpatient (CLI) | payer MEDICARE ==
[2018-09-27 12:27] LABS: HCT 35.6 % (34.0-46.0); HGB 11.1 gm/dL (11.4-16.0); Hypochromasia Moderate; MCH 27.8 pg (25.0-35.0); MCHC 31.2 g/dL (31.0-37.0); MCV 89.3 fL (80.0-100.0); Mean Platelet Volume 6.5; Platelet Count 234 k/uL (150-450); RBC 3.99 m/uL (3.80-5.40); RDW 14.5 % (11.5-15.5)
[2018-09-27 21:44] LABS: Anion Gap 12.6 mmol/L (4.00-12.00); Calcium 9.1 mg/dL (8.7-10.3); Carbon Dioxide 23.4 mmol/L (21.6-31.8); Potassium 4.8 mmol/L (3.5-5.5)
== END | disposition home or self-care (01) ==
LOC: LABWHC1 11:49
PROVIDERS: ATTEND Internal Medicine Interventional Cardiology
DX: I25.10 Atherosclerotic heart disease of native coronary artery without angina pectoris (principal); I10 Essential (primary) hypertension; I35.0 Nonrheumatic aortic (valve) stenosis
CPT/HCPCS: 36415; 80048; 85027

== ENCOUNTER 2018-12-26 10:07 | Inpatient (IN) | payer MEDICARE ==
--- NOTE | 2018-12-26 10:41 | ED ---
Lower Extremity Injury HPI - General Chief Complaint: Extremity Injury, Lower Stated Complaint: RT ANKLE INJURY Time Seen by Provider: 12/26/18 10:20 Source: patient, RN notes reviewed Mode of arrival: ambulatory Limitations: no limitations - History of Present Illness Initial Comments: 83-year-old female presented emergency from chief complaint of right ankle pain. Patient states she went to get up out of a chair but states her foot was asleep states that she rolled her ankle. Patient states that it is swollen and deformed. Patient also states that she has pain in her proximal tib-fib region. Patient denies any head injury no loss conscious denies any hip pain. Patient offers no other complaints - Related Data Home Medications Medication Instructions Recorded Confirmed Linagliptin [Tradjenta] 5 mg PO DAILY 01/27/17 12/26/18 Ranitidine HCl [Zantac] 300 mg PO DAILY 01/27/17 12/26/18 Terazosin [Hytrin] 5 mg PO HS 01/27/17 12/26/18 amLODIPine [Norvasc] 10 mg PO DAILY 01/27/17 12/26/18 glipiZIDE [Glucotrol] 10 mg PO PC-BID 01/27/17 12/26/18 Ascorbic Acid [Vitamin C] 500 mg PO DAILY 07/15/17 12/26/18 Cholecalciferol [Vitamin D3] 1,000 unit PO DAILY 07/15/17 12/26/18 Ferrous Sulfate [Iron (65 MG 325 mg PO DAILY 07/15/17 12/26/18 Elemental)] Furosemide [Lasix] 20 mg PO MOWEFR 07/15/17 12/26/18 Atenolol [Tenormin] 100 mg PO BID 06/22/18 12/26/18 Cyanocobalamin [Vitamin B-12] 500 mcg PO DAILY 06/22/18 12/26/18 Fish Oil/Dha/Epa [Fish Oil 1,200 1 cap PO DAILY 06/22/18 12/26/18 mg Fish Oil] Flaxseed Oil [[place]-3 Flaxseed Oil] 3,600 mg PO HS 06/22/18 12/26/18 L.acidoph,Paracasei, B.lactis 1 cap PO DAILY 06/22/18 12/26/18 [Probiotic] Sodium Polystyrene Sulfon/Sorb 15 gm PO Q14D 06/22/18 12/26/18 [Kionex 15 gm/60 ml Suspension] Vitamin E 180 unit PO DAILY 06/22/18 12/26/18 Apixaban [Eliquis] 2.5 mg PO BID 12/26/18 12/26/18 Furosemide [Lasix] 40 mg PO SUTUTHSA 12/26/18 12/26/18 Magnesium Oxide [Mag-Ox] 250 mg PO DAILY 12/26/18 12/26/18 Zinc 50 mg PO DAILY 12/26/18 12/26/18 Allergies Allergy/AdvReac Type Severity Reaction Status Date / Time No Known Allergies Allergy Verified 12/26/18 10:25 Review of Systems ROS Statement: Those systems with pertinent positive or pertinent negative responses have been documented in the HPI. ROS Other: All systems not noted in ROS Statement are negative. Past Medical History Past Medical History: Diabetes Mellitus, GERD/Reflux, Renal Disease, Vascular Disorder Additional Past Medical History / Comment(s): CHF, cardiomyopathy, cardiac valve problem, NIDDM type II, past diabetic retinopathy-"they say I don't have it anymore.", peripheral neuropathy L hand and L foot, CKD stage III, bronchitis History of Any Multi-Drug Resistant Organisms: None Reported Past Surgical History: Appendectomy Additional Past Surgical History / Comment(s): colonoscopy with polyps, cataracts. Bilateral cataract surgery. Heart Valve replacement 08/2018 Past Anesthesia/Blood Transfusion Reactions: Motion Sickness Past Psychological History: No Psychological Hx Reported Smoking Status: Former smoker - Past Family History Father Family Medical History: Myocardial Infarction ([place]) Additional Family Medical History / Comment(s): Father of a [place] at the age of 58yrs. Mother Family Medical History: No Reported History Additional Family Medical History / Comment(s): Mother lived to be 84 yrs old. General Exam Limitations: no limitations General appearance: alert, in no apparent distress Head exam: Present: atraumatic, normocephalic, normal inspection Neck exam: Present: normal inspection, full ROM. Absent: tenderness, meningismus, lymphadenopathy Respiratory exam: Present: normal lung sounds bilaterally. Absent: respiratory distress, wheezes, rales, rhonchi, stridor Cardiovascular Exam: Present: regular rate, normal rhythm, normal heart sounds. Absent: systolic murmur, diastolic murmur, rubs, gallop, clicks Extremities exam: Present: other (Proximal tib-fib tenderness on the right, right ankle swelling, ecchymosis and tenderness palpation neurovascular intact) Neurological exam: Present: alert, oriented X3, CN II-XII intact Skin exam: Present: warm, dry, intact, normal color. Absent: rash Course Vital Signs 12/26/18 12/26/18 10:13 12:18 Temperature 98.9 F Pulse Rate 58 L 76 Respiratory 18 18 Rate Blood Pressure 105/54 188/77 O2 Sat by Pulse 98 100 Oximetry Procedures - Orthopedic Splinting/Casting Injury #1 Side: right Lower Extremity Injury Location: short leg, ankle Lower Extremity Immobilizer: posterior splint, synthetic pre-padded splint Medical Decision Making - Medical Decision Making 83-year-old female presented for right leg injury. Patient's found to have bimalleolar fracture. Patient ankle is tender did reduce but no success secondary to mono swelling. Patient does live at home by herself is unable take care of herself. Patient will be admitted medically for rehab and further care. Patient will have consultation to orthopedics Disposition Clinical Impression: Inability to ambulate due to ankle or foot, Inability to perform activities of daily living, Bimalleolar fracture of right ankle Disposition: ADMITTED IP TO THIS [facility] Condition: Stable Referrals: Sara Doan DO [Primary Care Provider] - 1-2 days
--- NOTE | 2018-12-26 10:55 | XR ---
EXAMINATION TYPE: XR tibia fibula RT DATE OF EXAM: 12/26/2018 COMPARISON: Right ankle HISTORY: Twisting ankle bruising deformity TECHNIQUE: Right tibia and fibula 2 views FINDINGS: Knee joint space appears preserved. Proximal tibia appears intact. Proximal Fibula is inta ct. Bimalleolar fracture is evident at the right ankle. Please see right ankle dictation same date. IMPRESSION: 1. Bimalleolar fracture with subluxation of the talus laterally. 2. Proximal right tibia and fibula appear intact.
--- NOTE | 2018-12-26 10:57 | XR ---
EXAMINATION TYPE: XR ankle limited RT DATE OF EXAM: 12/26/2018 COMPARISON: Right tibia and fibula same date HISTORY: Assess ankle swelling and bruising deformity TECHNIQUE: Three-view right ankle FINDINGS: There is lateral subluxation of the talus in relation to the distal tibia approximately one half of the talus. Medial malleolar fracture is evident. Oblique fracture distal diaphysis of the fibula is present. Pos terior tibial fracture is not identified. Plantar and Achilles tendon calcaneal heel spurs are present Soft tissue swelling is over the lateral malleolus. IMPRESSION: 1. Bimalleolar fracture with soft tissue swelling. Posterior tibial fracture is not identified. 2. Lateral subluxation of the talus approximately one half tibial shaft width.
[2018-12-26] MEDS ORDERED: PROPOFOL 10 MG/ML 20 ML VIAL IV STA (11:05)
[2018-12-26] MEDS ORDERED: LORazepam 2 MG/ML INJ IV STA (12:15)
[2018-12-26] MEDS ORDERED: MORPHINE SULFATE 4 MG/ML SYRINGE IVP STA (12:15)
[2018-12-26] MEDS ORDERED: ONDANSETRON 4 MG/2 ML VIAL IVP STA (12:15)
[2018-12-26] MEDS ORDERED: NALOXONE 0.4 MG/ML 1 ML VIAL IV PRN (12:58)
[2018-12-26] MEDS ORDERED: ONDANSETRON 4 MG/2 ML VIAL IVP PRN (12:58)
[2018-12-26] MEDS ORDERED: MORPHINE SULFATE 4 MG/ML SYRINGE IV PRN (12:58)
[2018-12-26 16:02] VITALS: BMI 30.9
--- NOTE | 2018-12-26 16:52 | XR ---
EXAMINATION TYPE: XR chest 1V portable DATE OF EXAM: 12/26/2018 COMPARISON: January 27, 2017 HISTORY: Preop TECHNIQUE: Single frontal view of the chest is obtained. FINDINGS: There is some coarse infiltrate in the left lower lobe behind the heart. Right lung is nicanor ar. There is no heart failure. Thoracic aorta is atheromatous. IMPRESSION: Left lower lobe pneumonia. There is improvement in the appearance of the chest overall c ompared to last exam. There is clearing of the pulmonary congestion.
[2018-12-26] MEDS ORDERED: FUROSEMIDE 20 MG TAB PO SCH (17:00)
[2018-12-26 17:04] LABS: Glucose,Whole Blood 219 mg/dL (75-99)
--- NOTE | 2018-12-26 17:32 | XR ---
Right ankle 3 views. History post reduction. Comparison today. FINDINGS: 3 views were obtained through the cast. There is a posterior dislocation of the talus. There is trima lleolar fracture of the ankle joint. There is no significant change in bony relationships compared to initial exam. There is soft tissue swelling. IMPRESSION: Posterior trimalleolar fracture dislocation of the right ankle unchanged in position.
[2018-12-26] MEDS: HYDROcodone/APAP 5-325MG 1 EACH TAB PO PRN (17:37)
[2018-12-26] MEDS: glipiZIDE 10 MG TAB PO SCH (17:37)
--- NOTE | 2018-12-26 18:24 | P.CNOR ---
History of Present Illness - HPI Consult date: 12/26/18 History of present illness: This patient is an 83-year-old female with a past medical history of type 2 diabetes, hypertension,chronic kidney disease, aortic valve repair in March 2018, and GERD that presented to the ED on 12/26/2018 for evaluation of right ankle pain. The patient states that she was sitting in her chair at home when she stood up quickly and believe she tripped over a cat while her foot was asleep and fell sustained an injury to her ankle. She is unsure of the position of her ankle at the time of the fall. Patient states she experienced immediate pain and swelling to the right ankle, she was unable to ambulate. She crawled around the house and until she was able to get help from a friend. On presentation to the ED, she was found to have a right bimalleolar fracture with lateral subluxation of the talus. Reduction was attempted in the ED, with application of a posterior splint. Patient was admitted to the internal medicine team due to inability to perform activities of daily living at home and placement to rehab. Patient states her pain is currently well-controlled. She denies any other injuries from the fall. Patient does not have any other orthopedic complaints at this time. Vital signs stable. Review of Systems Please see HPI. Past Medical History Past Medical History: Diabetes Mellitus, GERD/Reflux, Renal Disease, Vascular Disorder Additional Past Medical History / Comment(s): CHF, cardiomyopathy, cardiac valve problem, NIDDM type II, past diabetic retinopathy-"they say I don't have it anymore.", peripheral neuropathy L hand and L foot, CKD stage III, bronchitis History of Any Multi-Drug Resistant Organisms: None Reported Past Surgical History: Appendectomy Additional Past Surgical History / Comment(s): colonoscopy with polyps, cataracts. Bilateral cataract surgery. Heart Valve replacement 08/2018 Past Anesthesia/Blood Transfusion Reactions: Motion Sickness Past Psychological History: No Psychological Hx Reported Additional Psychological History / Comment(s): Pt resides in her own home alone She uses cane She drives locally, familiar areas. Smoking Status: Former smoker Past Alcohol Use History: None Reported Additional Past Alcohol Use History / Comment(s): smoked from 20's to 60's 1ppd ; quit 30 yrs ago Past Drug Use History: None Reported - Past Family History Father Family Medical History: Myocardial Infarction ([place]) Additional Family Medical History / Comment(s): Father of a [place] at the age of 58yrs. Mother Family Medical History: No Reported History Additional Family Medical History / Comment(s): Mother lived to be 84 yrs old. Medications and Allergies Home Medications Medication Instructions Recorded Confirmed Type Linagliptin [Tradjenta] 5 mg PO DAILY 01/27/17 12/26/18 History Ranitidine HCl [Zantac] 300 mg PO DAILY 01/27/17 12/26/18 History Terazosin [Hytrin] 5 mg PO HS 01/27/17 12/26/18 History amLODIPine [Norvasc] 10 mg PO DAILY 01/27/17 12/26/18 History glipiZIDE [Glucotrol] 10 mg PO PC-BID 01/27/17 12/26/18 History Ascorbic Acid [Vitamin C] 500 mg PO DAILY 07/15/17 12/26/18 History Cholecalciferol [Vitamin D3] 1,000 unit PO DAILY 07/15/17 12/26/18 History Ferrous Sulfate [Iron (65 MG 325 mg PO DAILY 07/15/17 12/26/18 History Elemental)] Furosemide [Lasix] 20 mg PO MOWEFR 07/15/17 12/26/18 History Atenolol [Tenormin] 100 mg PO BID 06/22/18 12/26/18 History Cyanocobalamin [Vitamin B-12] 500 mcg PO DAILY 06/22/18 12/26/18 History Fish Oil/Dha/Epa [Fish Oil 1,200 1 cap PO DAILY 06/22/18 12/26/18 History mg Fish Oil] Flaxseed Oil [[place]-3 Flaxseed Oil] 3,600 mg PO HS 06/22/18 12/26/18 History L.acidoph,Paracasei, B.lactis 1 cap PO DAILY 06/22/18 12/26/18 History [Probiotic] Sodium Polystyrene Sulfon/Sorb 15 gm PO Q14D 06/22/18 12/26/18 History [Kionex 15 gm/60 ml Suspension] Vitamin E 180 unit PO DAILY 06/22/18 12/26/18 History Apixaban [Eliquis] 2.5 mg PO BID 12/26/18 12/26/18 History Furosemide [Lasix] 40 mg PO SUTUTHSA 12/26/18 12/26/18 History Magnesium Oxide [Mag-Ox] 250 mg PO DAILY 12/26/18 12/26/18 History Zinc 50 mg PO DAILY 12/26/18 12/26/18 History Allergies Allergy/AdvReac Type Severity Reaction Status Date / Time No Known Allergies Allergy Verified 12/26/18 10:25 Physical Examination On examination, patient is sitting up in bed in no acute distress. Patient is accompanied by her daughter. Patient is alert and oriented 3. Patient's breathing is even and nonlabored. Head is atraumatic and normocephalic. On inspection of the right lower extremity, there is a posterior splint in place. Splint is clean, dry, and intact. Splint is taken down and reveals diffuse swelling of the ankle, with ecchymosis to the medial ankle. The ankle is diffusely tender to palpation. The right foot is warm and well perfused with brisk capillary refill. Patient is able to wiggle her right toes without issue. Sensation is intact to light touch of the dorsal and plantar foot, as well as the first dorsal webspace. Results Right ankle x-ray 12/26/18: bimalleolar ankle fracture with lateral subluxation of the talus - Labs Labs: Abnormal Lab Results - Last 24 Hours (Table) 12/26/18 Range/Units 16:52 POC Glucose (mg/dL) 219 H (75-99) mg/dL Assessment and Plan Assessment: Right bimalleolar ankle fracture Plan: - I explained to the patient and her family the x-ray and clinical findings. I discussed that surgery would not be pursued until the swelling of the right ankle subsides. Therefore we will plan for the patient to follow-up with Dr. Edmondson in the office following discharge for surgical planning. - Patient was placed into a bulky [place] splint on the right lower extremity today. Patient tolerated this splint application well. - Patient is to remain strictly nonweightbearing on the right lower extremity. PT/OT ordered for gait and balance training. - Computed tomography scan of the right ankle ordered for post-reduction evaluation and surgical planning. - Ice and elevation of the right lower extremity to decrease pain and swelling. - We will continue to follow patient and make recommendations as needed.
[2018-12-26 20:17] LABS: Glucose,Whole Blood 295 mg/dL (75-99)
[2018-12-26] MEDS: DOXAZOSIN 4 MG TAB PO SCH (20:47)
[2018-12-26] MEDS: ATENOLOL 50 MG TAB PO SCH (20:47)
[2018-12-26] MEDS ORDERED: LEVOFLOXACIN 500MG-D5W PMX 500 MG in DEXTROSE/WATER 1 100ML.BAG IVPB SCH (23:00)
[2018-12-26 23:37] LABS: Basophils # (A) 0.1 k/uL (0-0.2); Basophils % (A) 1 %; Eosinophils # (A) 0.3 k/uL (0-0.7); Eosinophils % (A) 3 %; Lymphocytes % (A) 8 %; MCH 28.5 pg (25.0-35.0); MCHC 32.3 g/dL (31.0-37.0); MCV 88.3 fL (80.0-100.0); Mean Platelet Volume 6.9; Monocytes # (A) 0.9 k/uL (0-1.0); Monocytes % (A) 8 %; Neutrophils # (A) 9.2 k/uL (1.3-7.7); Neutrophils % (A) 79 %; Platelet Count 176 k/uL (150-450); RBC 3.85 m/uL (3.80-5.40); RDW 15.7 % (11.5-15.5); WBC 11.6 k/uL (3.8-10.6)
[2018-12-26] MEDS: FUROSEMIDE 10 MG/ML 4 ML VIAL IV SCH (23:38)
--- NOTE | 2018-12-26 23:45 | HP ---
HISTORY AND PHYSICAL DATE OF SERVICE: 12/26/2018. CHIEF COMPLAINT: Right ankle injury. HISTORY OF PRESENT ILLNESS: This 83-year-old woman with a past medical history of multiple medical problems including history of diabetes, GERD, history of CHF, cardiomyopathy, cardiac valve problems, history of diabetic neuropathy, peripheral neuropathy, chronic kidney disease, bronchitis, being followed by Dr. Doan and Dr. Verenice Casillas in the outpatient setting, apparently presented to the emergency room with right ankle pain. The patient went to get up from a chair and the patient's foot was asleep and she rolled her ankle. The ankle was swollen and deformed. The patient was evaluated in the ER. The ankle x-rays showed a posterior trimalleolar fracture dislocation of the right ankle. A reduction was attempted. The patient was admitted for further evaluation and treatment. The patient is sedated at this time. The patient has some occasional cough. Most of the history is taken from my discussed with staff, ER physician, as well as review of chart at this time. Orthopedic evaluation has been done and the patient is slated to have closed reduction and application of splint in the operating room tomorrow by Dr. Edmondson. There is no history of any fever, rigors, chills. No history of headache, loss of consciousness, seizures. PAST MEDICAL HISTORY: History of diabetes, GERD, history of CHF and cardiomyopathy. MEDICATIONS: Prior to admission home medications are reviewed, include: 1. Glucotrol 10 mg p.o. with meals b.i.d. 2. Norvasc 10 mg daily. 3. Zinc 50 mg daily. 4. Vitamin E 180 mg b.i.d. 5. Hytrin 5 mg at bedtime. 6. Sodium. 7. 15 mg every 14 days. 8. Zantac 300 mg daily. 9. Magnesium oxide 250 mg daily. 10.Tradjenta 5 mg p.o. daily. 11.Probiotic 1 capsule daily. 12.Lasix 40 mg Wednesday, , Wednesday, 20 mg p.o. Wednesday, Wednesday, Wednesday. 13.[place]-3, 3.6 daily at bedtime. 14.Fish oil 1 p.o. daily. 15.Iron 320 mg p.o. daily. 16.B12, 500 mcg. 17.Vitamin D, 3000 daily. 18.Tenormin 100 mg p.o. b.i.d. 19.Vitamin C 500 mg p.o. daily. 20.Eliquis 2.5 mg b.i.d. ALLERGIES: None. FAMILY HISTORY: History of myocardial infarction in the family. SOCIAL HISTORY: Previous smoking history. No history of alcohol intake. REVIEW OF SYSTEMS: ENT: No diminished vision or hearing. CARDIOVASCULAR: No angina or palpitations. RESPIRATORY SYSTEM: As mentioned. GI: As mentioned. : No dysuria. NERVOUS SYSTEM: No numbness or weakness. ALLERGY/IMMUNOLOGY: As mentioned. HEMATOLOGY: No history anemia. ENDOCRINE: History of diabetes. CONSTITUTIONAL: As mentioned. DERMATOLOGIC: As mentioned. PHYSICAL EXAMINATION: Alert, oriented x3. Pulse 72, blood pressure 173/74, respirations 16, temperature 97.2, pulse ox 100 percent on 3 L. HEENT: Normal. NECK: No JVD. CARDIOVASCULAR: S1 and S2 muffled. LUNGS: Breath sounds diminished at the bases. Few scattered rhonchi and crackles. ABDOMEN: Soft, nontender. No mass palpable. LEGS: Status post right ankle fracture. NERVOUS SYSTEM: Higher functions as mentioned. LYMPHATICS: No lymph nodes palpable in the neck, axillae or groin. SKIN: No ulcers or rashes or bleeding. LABS: Glucose 295. ASSESSMENT: 1. Status post right ankle fracture with unsuccessful reduction. 2. Diabetes mellitus type 2. 3. Gastroesophageal reflux disease. 4. Severe aortic stenosis. 5. History of congestive heart failure. 6. History of cardiomyopathy. 7. History of cardiac valve disease. 8. History of diabetic retinopathy. 9. Peripheral neuropathy. 10.Bronchitis. 11.Remote history of nicotine dependence. RECOMMENDATIONS AND DISCUSSION: This 83-year-old woman presented with multiple medical issues. We will monitor the patient closely. Continue the current management and symptomatic treatment. Otherwise at this time I recommend continue with current medications. would also recommend Cardiology consultation. If Cardiology clears the patient, the patient will be cleared for surgery. Further recommendations to follow. The patient had a cardiac catheterization and nonobstructive coronary artery disease last year. Please see order for further details. MMODL / IJN: [id number] / MTDD
[2018-12-26 23:46] LABS: Albumin 3.2 g/dL (3.5-5.0); Calcium 9.1 mg/dL (8.4-10.2); Potassium 4.8 mmol/L (3.5-5.1); Total Bilirubin 0.5 mg/dL (0.2-1.3); Total Protein 6.1 g/dL (6.3-8.2)
[2018-12-27 06:49] LABS: Glucose,Whole Blood 155 mg/dL (75-99)
[2018-12-27] MEDS: IPRATROPIUM-ALBUTEROL 3 ML NEB INHALATION SCH ×3 (07:32→20:09)
[2018-12-27] MEDS: glipiZIDE 10 MG TAB PO SCH ×2 (07:49→17:48)
[2018-12-27] MEDS: ATENOLOL 50 MG TAB PO SCH ×2 (07:59→20:40)
[2018-12-27] MEDS: amLODIPine 10 MG TAB PO SCH (07:59)
[2018-12-27] MEDS: ASCORBIC ACID 500 MG TAB PO SCH (08:00)
[2018-12-27] MEDS: MAGNESIUM OXIDE 400 MG TAB PO SCH (08:00)
[2018-12-27] MEDS: LACTOBACILLUS ACIDOPH & BULGAR 1 EACH PACKET PO SCH (08:00)
[2018-12-27] MEDS: CYANOCOBALAMIN 500 MCG TAB PO SCH (08:00)
[2018-12-27] MEDS: FERROUS SULFATE 325 MG TAB PO SCH (08:00)
[2018-12-27] MEDS: FAMOTIDINE 20 MG TAB PO SCH (08:00)
[2018-12-27] MEDS: LINAGLIPTIN 5 MG TABLET PO SCH (08:00)
[2018-12-27] MEDS: CHOLECALCIFEROL 1,000 UNIT TAB PO SCH (08:00)
[2018-12-27] MEDS: ZINC SULFATE 220 MG CAP PO SCH (08:01)
[2018-12-27] MEDS: VITAMIN E (DL,TOCOPHERYL ACET) 400 UNIT CAP PO SCH (08:01)
[2018-12-27] MEDS: FUROSEMIDE 10 MG/ML 4 ML VIAL IV SCH (08:11)
[2018-12-27 08:59] LABS: Basophils # (A) 0.1 k/uL (0-0.2); Basophils % (A) 1 %; Eosinophils # (A) 0.4 k/uL (0-0.7); Eosinophils % (A) 4 %; HCT 36.6 % (34.0-46.0); HGB 11.7 gm/dL (11.4-16.0); Hypochromasia Slight; Lymphocytes # (A) 0.9 k/uL (1.0-4.8); Lymphocytes % (A) 9 %; MCH 28.2 pg (25.0-35.0); MCHC 31.9 g/dL (31.0-37.0); MCV 88.2 fL (80.0-100.0); Mean Platelet Volume 6.2; Monocytes # (A) 0.8 k/uL (0-1.0); Monocytes % (A) 8 %; Neutrophils # (A) 8.1 k/uL (1.3-7.7); Neutrophils % (A) 77 %; Platelet Count 192 k/uL (150-450); RBC 4.15 m/uL (3.80-5.40); RDW 15.4 % (11.5-15.5); WBC 10.5 k/uL (3.8-10.6)
[2018-12-27] MEDS ORDERED: FUROSEMIDE 40 MG TAB PO SCH (09:00)
[2018-12-27 09:15] LABS: Calcium 9.1 mg/dL (8.4-10.2); Magnesium 2.2 mg/dL (1.6-2.3); Potassium 4.6 mmol/L (3.5-5.1)
[2018-12-27 11:45] LABS: Glucose,Whole Blood 191 mg/dL (75-99)
[2018-12-27] MEDS ORDERED: LACTATED RINGERS 1,000 ML IV ONE (13:07)
--- NOTE | 2018-12-27 14:14 | P.CRDCN ---
History of Present Illness History of present illness: This is a pleasant 83-year-old female past medical history significant for atrial fibrillation, aortic stenosis s/p TAVR, diabetes mellitus , hypertension, dyslipidemia, mild non-obstructive coronary artery disease and pulmonary hypertension. She underwent cardiac catheterization in June 2018 which revealed a right dominant system, 40% proximal RCA lesion, 50% proximal circumflex lesion and no significant disease in the LAD. We have been asked to see her in consultation prior to surgery for a fractured right ankle. She follows in the office with Dr. Casillas. She states she stood up from her chair yesterday and it felt like her right foot was sleeping with a feeling of pins and needles. Next thing she knows she fell down and her ankle twisted. She denies loss of consciousness. She denies chest pain, dizziness or palpitations prior to or thereafter falling. Xray reveals posterior trimalar fracture dislocation of the right ankle. She has been seen in consultation by orthopedics and is scheduled to undergo surgical intervention this afternoon. Clinically she denies symptoms of chest discomfort or exertional angina. She does state she feels short of breath with mild exertion chronically however denies PND or orthopnea.. She is seen and examined sitting up in bed in no acute distress. There is no EKG obtained on admission. Laboratory data reviewed, WBC 10.5, hemoglobin 11.7, platelets 192, sodium 137, potassium 4.6, creatinine 1.7 to, magnesium 2.2, NT proBNP 10,500. Current cardiac medications include amlodipine 10 mg daily, Eliquis 2.5 mg twice a day, atenolol 100 mg twice a day, Lasix 20 mg Wednesday and Wednesday and 40 mg Wednesday. Chest x-ray on admission shows evidence of left lower lobe pneumonia with improvement in the appearance of the chest overall compared to last exam with clearing of pulmonary congestion. Recent echocardiogram obtained in the office 11/24/2018 reveals preserved left ventricular systolic function with ejection fraction 60%, severely dilated left atrium, mildly dilated right atrium, tissue aortic valve prosthesis with mild perivalvular leak, mild to moderate MR, moderate to severe TR and pulmonary hypertension with an RVSP of 74 mmHg. At the time of my exam: CONSTITUTIONAL: Denies fever. Denies chills. EYES: Denies blurred vision. Denies vision changes. Denies eye pain. EARS, NOSE, MOUTH & THROAT: Denies headache. Denies sore throat. Denies ear pain. CARDIOVASCULAR: Denies chest pain. Denies shortness of breath. Denies orthopnea. Denies PND. Denies palpitations. RESPIRATORY: Denies cough. GASTROINTESTINAL: Denies abdominal pain. Denies diarrhea. Denies constipation. Denies nausea. Denies vomiting. MUSCULOSKELETAL: Denies myalgias. INTEGUMENTARY: Denies pruitis. Denies rash. NEUROLOGIC: Denies numbness. Denies tingling. Denies weakness. PSYCHIATRIC: Denies anxiety. Denies depression. ENDOCRINE: Denies fatigue. Denies weight change. Denies polydipsia. Denies polyurina. GENITOURINARY: Denies burning, hematuria or urgency with micturation. HEMATOLOGIC: Denies history of anemia. Denies bleeding. Blood presure 138/95 heart rate 63 afebrile maintaining oxygen saturation on room air. GENERAL: This is a 83-year-old female in no apparent distress at the time of my examination. HEENT: Head is atraumatic, normocephalic. Pupils are equal, round. Sclerae anicteric. Conjunctivae are clear. Mucous membranes of the mouth are moist. Neck is supple. There is no jugular venous distention. No carotid bruit is heard. LUNGS: Clear to auscultation no wheezes, rales or rhonchi. No chest wall tenderness is noted on palpation or with deep breathing. HEART: Regular rate and rhythm with systolic ejection murmur at the base, no rubs or gallops. S1 and S2 heard. ABDOMEN: Soft, nontender. Bowel sounds are heard. No organomegaly noted. EXTREMITIES: No evidence of peripheral edema and no calf tenderness noted. VASCULAR: Radial and dorsalis pedis pulses palpated, no evidence of clubbing. NEUROLOGIC: Patient is awake, alert and oriented x3. ASSESSMENT Acute right bimalleolar ankle fracture History of mild non-obstructive CAD Aortic stenosis s/p recent TAVR procedure Hypertension Paroxysmal atrial fibrillation on longterm anticoagulation currently maintaining sinus mechanism Chronic renal failure, GFR 27. Stage 4. Pulmonary hypertension PLAN Stable from a cardiac perspective. She is seen and examined and appears comfortable with no symptoms of angina or anginal equivalent. She also appears to be euvolemic with clear lungs, no lower extremity edema, no PND and no overt shortness of breath despite an elevated NTproBNP. Last dose of eliquis was 2 days ago in the evening. She is at an increased risk of for surgical intervention due to her multiple co- morbid conditions. However, there is no absolute contraindication. She may proceed with surgery with cautious fluid administration devin-operatively and optimal blood pressure control. Resume Eliquis as soon as possible post-operatively. Thank you kindly for this consultation. Nurse Practitioner note has been reviewed, I agree with a documented findings and plan of care. Patient was seen and examined. Past Medical History Past Medical History: Diabetes Mellitus, GERD/Reflux, Renal Disease, Vascular Disorder Additional Past Medical History / Comment(s): CHF, cardiomyopathy, cardiac valve problem, NIDDM type II, past diabetic retinopathy-"they say I don't have it anymore.", peripheral neuropathy L hand and L foot, CKD stage III, bronchitis History of Any Multi-Drug Resistant Organisms: None Reported Past Surgical History: Appendectomy Additional Past Surgical History / Comment(s): colonoscopy with polyps, cataracts. Bilateral cataract surgery. Heart Valve replacement 08/2018 Past Anesthesia/Blood Transfusion Reactions: Motion Sickness Past Psychological History: No Psychological Hx Reported Additional Psychological History / Comment(s): Pt resides in her own home alone She uses cane She drives locally, familiar areas. Smoking Status: Former smoker Past Alcohol Use History: None Reported Additional Past Alcohol Use History / Comment(s): smoked from 20's to 60's 1ppd ; quit 30 yrs ago Past Drug Use History: None Reported - Past Family History Father Family Medical History: Myocardial Infarction ([place]) Additional Family Medical History / Comment(s): Father of a [place] at the age of 58yrs. Mother Family Medical History: No Reported History Additional Family Medical History / Comment(s): Mother lived to be 84 yrs old. Medications and Allergies Home Medications Medication Instructions Recorded Confirmed Type Linagliptin [Tradjenta] 5 mg PO DAILY 01/27/17 12/26/18 History Ranitidine HCl [Zantac] 300 mg PO DAILY 01/27/17 12/26/18 History Terazosin [Hytrin] 5 mg PO HS 01/27/17 12/26/18 History amLODIPine [Norvasc] 10 mg PO DAILY 01/27/17 12/26/18 History glipiZIDE [Glucotrol] 10 mg PO PC-BID 01/27/17 12/26/18 History Ascorbic Acid [Vitamin C] 500 mg PO DAILY 07/15/17 12/26/18 History Cholecalciferol [Vitamin D3] 1,000 unit PO DAILY 07/15/17 12/26/18 History Ferrous Sulfate [Iron (65 MG 325 mg PO DAILY 07/15/17 12/26/18 History Elemental)] Furosemide [Lasix] 20 mg PO MOWEFR 07/15/17 12/26/18 History Atenolol [Tenormin] 100 mg PO BID 06/22/18 12/26/18 History Cyanocobalamin [Vitamin B-12] 500 mcg PO DAILY 06/22/18 12/26/18 History Fish Oil/Dha/Epa [Fish Oil 1,200 1 cap PO DAILY 06/22/18 12/26/18 History mg Fish Oil] Flaxseed Oil [[place]-3 Flaxseed Oil] 3,600 mg PO HS 06/22/18 12/26/18 History L.acidoph,Paracasei, B.lactis 1 cap PO DAILY 06/22/18 12/26/18 History [Probiotic] Sodium Polystyrene Sulfon/Sorb 15 gm PO Q14D 06/22/18 12/26/18 History [Kionex 15 gm/60 ml Suspension] Vitamin E 180 unit PO DAILY 06/22/18 12/26/18 History Apixaban [Eliquis] 2.5 mg PO BID 12/26/18 12/26/18 History Furosemide [Lasix] 40 mg PO SUTUTHSA 12/26/18 12/26/18 History Magnesium Oxide [Mag-Ox] 250 mg PO DAILY 12/26/18 12/26/18 History Zinc 50 mg PO DAILY 12/26/18 12/26/18 History Allergies Allergy/AdvReac Type Severity Reaction Status Date / Time No Known Allergies Allergy Verified 12/26/18 10:25 Physical Exam Vitals: Vital Signs Temp Pulse Pulse Resp BP BP Pulse Ox 12/27/18 07:48 64 12/27/18 07:32 64 12/27/18 04:56 97.4 F L 63 16 116/65 99 12/26/18 20:50 98.1 F 62 16 130/71 98 12/26/18 15:00 97.2 F L 72 16 173/75 100 12/26/18 14:00 97.0 F L 67 16 131/61 98 12/26/18 12:18 76 18 188/77 100 12/26/18 10:13 98.9 F 58 L 18 105/54 98 Intake and Output 12/26/18 12/27/18 12/27/18 22:59 06:59 14:59 Intake Total 240 100 Balance 240 100 Intake: Intake, IV Titration 100 Amount Levofloxacin 500Mg-D5w 100 Pmx 500 mg In Dextrose/ Water 1 100ml.bag @ 100 mls/hr IVPB Q24H COUNT INCLUDES THE [facility] Rx#: [id number] Oral 240 Other: Voiding Method Bedpan Bedpan # Voids 1 1 Results 12/27/18 08:30 12/27/18 08:30 Cardiac Enzymes 12/26/18 Range/Units 23:11 AST 13 L (14-36) U/L CBC 12/26/18 12/27/18 Range/Units 23:11 08:30 WBC 11.6 H 10.5 (3.8-10.6) k/uL RBC 3.85 4.15 (3.80-5.40) m/uL Hgb 11.0 L 11.7 (11.4-16.0) gm/dL Hct 34.0 36.6 (34.0-46.0) % Plt Count 176 192 (150-450) k/uL Comprehensive Metabolic Panel 12/26/18 12/27/18 Range/Units 23:11 08:30 Sodium 136 L 137 (137-145) mmol/L Potassium 4.8 4.6 (3.5-5.1) mmol/L Chloride 99 102 (98-107) mmol/L Carbon Dioxide 30 30 (22-30) mmol/L BUN 44 H 42 H (7-17) mg/dL Creatinine 1.75 H 1.72 H (0.52-1.04) mg/dL Glucose 206 H 176 H (74-99) mg/dL Calcium 9.1 9.1 (8.4-10.2) mg/dL AST 13 L (14-36) U/L ALT 23 (9-52) U/L Alkaline Phosphatase 56 (38-126) U/L Total Protein 6.1 L (6.3-8.2) g/dL Albumin 3.2 L (3.5-5.0) g/dL Current Medications Generic Name Dose Route Start Last Admin Trade Name Freq PRN Reason Stop Dose Admin Hydrocodone Bitart/Acetaminophen 1 each 12/26/18 12:58 12/26/18 17:37 [place] 5-325 PO 1 each Q4HR PRN Administration Moderate Pain Albuterol/Ipratropium 3 ml 12/27/18 08:00 12/27/18 07:32 Duoneb 0.5 Mg-3 Mg/3 Ml Soln INHALATION 3 ml RT-TID ULISES Administration Amlodipine Besylate 10 mg 12/27/18 09:00 12/27/18 07:59 Norvasc PO 10 mg DAILY ULISES Administration Ascorbic Acid 500 mg 12/27/18 09:00 12/27/18 08:00 Vitamin C PO Not Given DAILY COUNT INCLUDES THE [facility] Atenolol 100 mg 12/26/18 21:00 12/27/18 07:59 Tenormin PO 100 mg BID ULISES Administration Cholecalciferol 1,000 unit 12/27/18 09:00 12/27/18 08:00 Vitamin D3 PO Not Given DAILY COUNT INCLUDES THE [facility] Cyanocobalamin 500 mcg 12/27/18 09:00 12/27/18 08:00 Vitamin B-12 PO Not Given DAILY COUNT INCLUDES THE [facility] Doxazosin Mesylate 4 mg 12/26/18 21:00 12/26/18 20:47 Cardura PO 4 mg HS COUNT INCLUDES THE [facility] Administration Famotidine 40 mg 12/27/18 09:00 12/27/18 08:00 Pepcid PO 40 mg DAILY ULISES Administration Ferrous Sulfate 325 mg 12/27/18 09:00 12/27/18 08:00 Feosol PO 325 mg DAILY ULISES Administration Furosemide 40 mg 12/26/18 22:45 12/27/18 08:11 Lasix IV Not Given Q12HR ULISES Glipizide 10 mg 12/26/18 18:30 12/27/18 07:49 Glucotrol PO Not Given PC-BID ULISES Levofloxacin 500 mg/ IV 100 mls @ 100 mls/hr 12/26/18 23:00 12/26/18 23:39 Solution IVPB 100 mls/hr Q24H ULISES Administration Lactobacillus Acidoph/[place] 1 each 12/27/18 09:00 12/27/18 08:00 Lactinex PO Not Given DAILY ULISES Linagliptin 5 mg 12/27/18 09:00 12/27/18 08:00 Tradjenta PO Not Given DAILY COUNT INCLUDES THE [facility] Magnesium Oxide 400 mg 12/27/18 09:00 12/27/18 08:00 Mag-Ox PO Not Given DAILY COUNT INCLUDES THE [facility] Morphine Sulfate 4 mg 12/26/18 12:58 Morphine Sulfate (Inj) IV Q4HR PRN Severe Pain Naloxone HCl 0.2 mg 12/26/18 12:58 Narcan IV Q2M PRN Opioid Reversal Ondansetron HCl 4 mg 12/26/18 12:58 Zofran IVP Q8HR PRN Nausea And Vomiting Sodium Polystyrene Sulfonate 15 gm 01/08/19 09:00 Kayexalate PO Q14D COUNT INCLUDES THE [facility] Vitamin E 400 unit 12/27/18 09:00 12/27/18 08:01 Vitamin E PO Not Given DAILY COUNT INCLUDES THE [facility] Zinc Sulfate 220 mg 12/27/18 09:00 12/27/18 08:01 Orazinc PO Not Given DAILY COUNT INCLUDES THE [facility] Intake and Output 12/26/18 12/27/18 12/27/18 22:59 06:59 14:59 Intake Total 240 100 Balance 240 100 Intake: Intake, IV Titration 100 Amount Levofloxacin 500Mg-D5w 100 Pmx 500 mg In Dextrose/ Water 1 100ml.bag @ 100 mls/hr IVPB Q24H COUNT INCLUDES THE [facility] Rx#: [id number] Oral 240 Other: Voiding Method Bedpan Bedpan # Voids 1 1 12/27/18 08:30 12/27/18 08:30
--- NOTE | 2018-12-27 14:17 | P.OP ---
Date of Procedure: 12/27/18 Preoperative Diagnosis: 1. Right trimalleolar ankle fracture 2. Type 2 diabetes 3. Aortic valve repair 4. Hypertension 5. Chronic kidney disease Postoperative Diagnosis: Same Procedure(s) Performed: Closed reduction of right trimalleolar ankle fracture and application of short leg splint by physician as part of a staged procedure Anesthesia: MAC Surgeon: Eros Edmondson Vocational Nursing Instructor #1: Cyndee Hull IV fluids (ml): 500 Pathology: none sent Condition: stable Disposition: PACU Indications for Procedure: The patient is a very pleasant 83-year-old female with multiple medical problems who sustained a ground-level fall resulting in a grossly unstable right trimalleolar ankle fracture. She was admitted to internal medicine for placement following her injury she was unable to safely discharge home. Her postreduction x-rays showed a dislocated ankle joint. I met with the patient and her daughter discuss going to the operating room to reduce and splint her ankle under controlled environment versus placing an external fixator. They understand that this is part of a staged procedure and that she will ultimately need operative fixation of her grossly unstable ankle fracture. They're well aware of the potential risks and competitions of surgery Description of Procedure: The patient's identified and prepped holding and the correct right ankle was marked with my initials. I reviewed the consent form with the patient and her daughter. The patient was then brought back to the operating room by anesthesia. She was positioned on the OR table where a sedation was provided. Once the patient was under sedation a timeout was performed identifying the correct patient, operative extremity, and procedure. A gentle closed reduction was then performed using a Bettina maneuver. The reduction was verified with fluoroscopy. A well-padded bulky [place] splint was placed with a varus mold. Final fluoroscopic images were taken after the splint had set documenting an anatomic reduction of the ankle mortise. The patient was then awoken from her sedation, transferred to a gurney, and brought to PACU without the procedure well. Plan: The patient is to remain strictly nonweightbearing on her right leg. She will need follow-up in the office in 7-10 days to discuss definitive surgical fixation of her grossly unstable ankle fracture. We'll plan for either an open reduction and internal fixation versus a primary hindfoot nail once her soft tissue swelling resolves.
[2018-12-27 14:25] LABS: Glucose,Whole Blood 194 mg/dL (75-99)
[2018-12-27] MEDS: HYDROcodone/APAP 5-325MG 1 EACH TAB PO PRN ×2 (15:19→19:41)
[2018-12-27 16:55] LABS: Glucose,Whole Blood 267 mg/dL (75-99)
--- NOTE | 2018-12-27 17:47 | XR ---
EXAMINATION TYPE: XR ankle limited RT, FL guidance operating room DATE OF EXAM: 12/27/2018 COMPARISON: NONE HISTORY: 83-year-old female right ankle closed reduction FINDINGS: 4 images of the patient's lateral and posterior malleoli are ankle fractures during casting. FLUOROSCOPY Fluoroscopy time of 10 seconds was used during closed reduction of right ankle fractures. 4 image/s document/s the procedure. IMPRESSION: Intraoperative fluoroscopy as above.
--- NOTE | 2018-12-27 19:19 | PN ---
PROGRESS NOTE DATE OF SERVICE: 12/27/2018 This 83-year-old woman was admitted after right ankle fracture, also had multiple medical problems. The patient has CHF also. The patient had TAVR at [facility] for severe aortic stenosis. Cardiology following the patient closely. A BNP was noted to be 10,500. The patient underwent 2D echo done showed 11/24 showed preserved LV function. The ejection fraction was 60%. Cardiology has cleared the patient for surgery, some extra risk and the patient underwent closed reduction right trimalleolar ankle fracture and application of short-leg splint by Dr. Edmondson. PAST MEDICAL HISTORY: Reviewed. REVIEW OF SYSTEMS: Cardio system: As mentioned earlier. Respiratory: As mentioned earlier. GASTROINTESTINAL: No nausea or vomiting. : No numbness or weakness. CURRENT MEDICATIONS ARE: Reviewed and include home medications are: 1. [place] 5 mg q.4h p.r.n. 2. DuoNeb q.i.d. and p.r.n. 3. Norvasc 10 mg daily. 4. Vitamin C 500. 5. Tenormin 100 mg daily. 6. Vitamin D3 2000 daily. 7. Vitamin B12 500 mg daily. 8. Cardura 4 mg q.h.s. 9. Pepcid 40 mg daily. 10.Iron sulfate 320 mg daily. 11.Glucotrol 20 mg p.o. t.i.d. 12.Plaquenil. 13.Magnesium oxide. 14.Morphine. 15.Narcan. 16.Zofran. 17.Vitamin D. 18.Oral Zinc. PHYSICAL EXAM: Patient is alert, oriented x3. Pulse is 70. Blood pressure 118/56. Respiratory rate 16. Temp is normal, pulse ox 97% on room air. HEENT: Conjunctivae normal. Oral mucosa moist. Neck is no jugular venous distention. No carotid bruit. No lymph node enlargement. Cardiovascular S1, S2 muffled. Respirations: Breath sounds diminished. A few scattered rhonchi. ABDOMEN: Soft, nontender. No mass palpable. Legs: Status post surgery. Nervous system: Higher functions as mentioned earlier. Moves all four limbs. No focal deficits. Lymphatics: No lymph nodes palpable in the neck, axilla and groin. Skin: No ulcer, rash or bleeding. The previous chest x-ray was reviewed from yesterday. LABS: Otherwise WBC 11.5, hemoglobin 11.7. Other labs are noted. Creatinine is 1.17. ASSESSMENT: 1. Status post right ankle fracture and unsuccessful closed reduction and right trimalleolar ankle fracture and application of short splint. 2. Diabetes mellitus type 2. 3. Gastroesophageal reflux disease. 4. Severe aortic stenosis status post TAVR. 5. History of congestive heart failure chronic diastolic dysfucntion 6. Current ejection fraction 60%. 7. History of cardiomyopathy. 8. History of cardiac valve disease. 9. History of diabetic retinopathy. 10.Peripheral neuropathy. 11.Bronchitis. 12.Remote history of nicotine dependence. 13.Increased random blood sugar. 14.Chronic kidney stage 3. RECOMMENDATIONS AND DISCUSSION: In this 84-year-old woman who presented with multiple complex medical issues, further recommendations to follow. At this time, patient underwent closed reduction as part 1 of the staged procedure per Dr. Edmondson. Otherwise, we will follow the patient closely. Continue the current medications. I would also recommend a chest x- ray to evaluate for the fluid and electrolytes balance. Otherwise, closely follow with Cardiology. Guarded prognosis because of multiple complex medical issues. Further recommendations to follow. MMODL / IJN: [id number] / DOYLE
[2018-12-27 20:12] LABS: Glucose,Whole Blood 264 mg/dL (75-99)
[2018-12-27] MEDS: DOXAZOSIN 4 MG TAB PO SCH (20:40)
[2018-12-28] MEDS: HYDROcodone/APAP 5-325MG 1 EACH TAB PO PRN ×3 (06:01→20:07)
[2018-12-28 06:56] LABS: Glucose,Whole Blood 195 mg/dL (75-99)
[2018-12-28] MEDS: IPRATROPIUM-ALBUTEROL 3 ML NEB INHALATION SCH ×3 (07:27→20:22)
[2018-12-28] MEDS: glipiZIDE 10 MG TAB PO SCH ×2 (08:00→17:02)
[2018-12-28] MEDS: ZINC SULFATE 220 MG CAP PO SCH (08:01)
[2018-12-28] MEDS: ATENOLOL 50 MG TAB PO SCH ×2 (08:01→20:06)
[2018-12-28] MEDS: MAGNESIUM OXIDE 400 MG TAB PO SCH (08:01)
[2018-12-28] MEDS: ASCORBIC ACID 500 MG TAB PO SCH (08:01)
[2018-12-28] MEDS: FERROUS SULFATE 325 MG TAB PO SCH (08:01)
[2018-12-28] MEDS: amLODIPine 10 MG TAB PO SCH (08:01)
[2018-12-28] MEDS: LACTOBACILLUS ACIDOPH & BULGAR 1 EACH PACKET PO SCH (08:01)
[2018-12-28] MEDS: CHOLECALCIFEROL 1,000 UNIT TAB PO SCH (08:01)
[2018-12-28] MEDS: CYANOCOBALAMIN 500 MCG TAB PO SCH (08:01)
[2018-12-28] MEDS: FAMOTIDINE 20 MG TAB PO SCH (08:01)
[2018-12-28] MEDS: LINAGLIPTIN 5 MG TABLET PO SCH (08:01)
[2018-12-28] MEDS: VITAMIN E (DL,TOCOPHERYL ACET) 400 UNIT CAP PO SCH (08:01)
[2018-12-28 08:11] LABS: Potassium 4.5 mmol/L (3.5-5.1)
[2018-12-28 08:41] LABS: Basophils # (A) 0.1 k/uL (0-0.2); Basophils % (A) 0 %; Eosinophils # (A) 0.4 k/uL (0-0.7); Eosinophils % (A) 4 %; HCT 35.6 % (34.0-46.0); HGB 11.4 gm/dL (11.4-16.0); Lymphocytes # (A) 0.8 k/uL (1.0-4.8); Lymphocytes % (A) 7 %; MCH 28.5 pg (25.0-35.0); MCHC 32.1 g/dL (31.0-37.0); MCV 88.9 fL (80.0-100.0); Mean Platelet Volume 7.1; Monocytes # (A) 0.9 k/uL (0-1.0); Monocytes % (A) 8 %; Neutrophils # (A) 8.9 k/uL (1.3-7.7); Neutrophils % (A) 80 %; Platelet Count 181 k/uL (150-450); RBC 4.01 m/uL (3.80-5.40); RDW 15.5 % (11.5-15.5); WBC 11.2 k/uL (3.8-10.6)
--- NOTE | 2018-12-28 09:20 | XR ---
EXAMINATION TYPE: XR chest 1V portable DATE OF EXAM: 12/28/2018 COMPARISON: 12/26/2018 HISTORY: Congestive heart failure TECHNIQUE: Single frontal view of the chest is obtained. FINDINGS: There is minimal platelike horizontally oriented left midlung atelectasis, improved from t he prior. No pulmonary vascular congestion, pleural effusion or pneumothorax. No focal consolidation. Cardia mediastinal silhouette is again mildly enlarged but stable. Slight osseous demineralization i s seen throughout. IMPRESSION: Cardiomegaly and minimal left midlung atelectasis. No findings to suggest current decomp ensated congestive heart failure.
--- NOTE | 2018-12-28 10:27 | P.PN ---
Subjective Progress Note Date: 12/28/18 This patient is an 83-year-old female with a past medical history of type 2 diabetes, hypertension,chronic kidney disease, aortic valve repair in March 2018, and GERD that presented to the ED on 12/26/18 for evaluation of right ankle pain. The patient states that she was sitting in her chair at home when she stood up quickly and believe she tripped over a cat while her foot was asleep and fell, sustaining an injury to her ankle. She is unsure of the position of her ankle at the time of the fall. Patient states she experienced immediate pain and swelling to the right ankle, she was unable to ambulate. She crawled around the house and until she was able to get help from a friend. On presentation to the ED, she was found to have a right bimalleolar fracture with lateral subluxation of the talus. Reduction was attempted in the ED, with application of a posterior splint. Patient was admitted to the internal medicine team due to inability to perform activities of daily living at home and placement to rehab. Patient underwent a closed reduction of the right ankle with application of splint in the operating room yesterday with Dr. Edmondson. Currently, patient states she is doing well. She states her pain is well- controlled of the right lower extremity. She has been up with physical therapy and transferring to the chair without issue, per patient. She has been remaining non weight bearing on the right lower extremity, per patient, although she is wondering when she will be able to bear weight on this leg. She denies numbness or tingling of the right lower extremity. She denies chest pain , shortness of breath, nausea, vomiting. She has no new complaints today. Objective - Vital Signs Vital signs: Vital Signs Temp 98.9 F 12/28/18 05:00 Pulse 72 12/28/18 07:39 Resp 16 12/28/18 05:00 BP 152/75 12/28/18 05:00 Pulse Ox 93 L 12/28/18 05:00 Intake & Output 12/27/18 12/28/18 12/28/18 18:59 06:59 18:59 Intake Total 450 480 Output Total 0 Balance 450 480 Intake: IV 400 Intake, IV Titration 50 Amount Levofloxacin 250Mg-D5w 50 Pmx 250 mg In Dextrose/ Water 1 50ml.bag @ 50 mls /hr IVPB Q48H [facility] Rx#: [id number] Oral 0 480 Output: Estimated Blood Loss 0 Other: Voiding Method Bedpan Bedpan Bedpan # Voids 1 4 - Exam On examination, patient is sitting up in the chair in no acute distress. Patient is alert and oriented 3. On inspection of the right lower extremity, there is a bulky greco splint in place. The splint is clean, dry, and intact. The right toes are warm and well perfused with brisk capillary refill. Patient is able to wiggle her right toes without issue. Sensation is intact to light touch of the dorsal and plantar foot, as well as the first dorsal webspace. - Labs CBC & Chem 7: 12/28/18 07:18 12/28/18 07:18 Labs: Abnormal Lab Results - Last 24 Hours (Table) 12/27/18 12/27/18 12/27/18 Range/Units 11:44 14:14 16:53 WBC (3.8-10.6) k/uL Sodium (137-145) mmol/L BUN (7-17) mg/dL Creatinine (0.52-1.04) mg/dL Glucose (74-99) mg/dL POC Glucose (mg/dL) 191 H 194 H 267 H (75-99) mg/dL 12/27/18 12/28/18 12/28/18 Range/Units 20:10 06:55 07:18 WBC 11.2 H (3.8-10.6) k/uL Sodium (137-145) mmol/L BUN (7-17) mg/dL Creatinine (0.52-1.04) mg/dL Glucose (74-99) mg/dL POC Glucose (mg/dL) 264 H 195 H (75-99) mg/dL 12/28/18 Range/Units 07:18 WBC (3.8-10.6) k/uL Sodium 136 L (137-145) mmol/L BUN 38 H (7-17) mg/dL Creatinine 1.65 H (0.52-1.04) mg/dL Glucose 198 H (74-99) mg/dL POC Glucose (mg/dL) (75-99) mg/dL - Imaging and Cardiology Right ankle xrays 12/26/18: right trimalleolar ankle fracture Assessment and Plan Assessment: Right trimalleolar ankle fracture Plan: - I again discussed the x-ray and clinical findings with the patient. We discussed that surgery would not be pursued until the swelling of the right ankle subsides. The patient will follow up with Dr. Edmondson in the office 1 week after discharge for soft tissue check and surgical planning. Bulky greco splint is to remain intact until this appointment. - Patient is to remain strictly nonweightbearing on the right lower extremity. PT/OT for gait and balance training. - Ice and elevation of the right lower extremity to decrease pain and swelling. - We will continue to follow patient and make recommendations as needed.
[2018-12-28 11:01] LABS: Poikilocytosis (M) Present
[2018-12-28 11:16] LABS: Glucose,Whole Blood 241 mg/dL (75-99)
[2018-12-28 17:18] LABS: Glucose,Whole Blood 233 mg/dL (75-99)
--- NOTE | 2018-12-28 18:37 | PN ---
PROGRESS NOTE DATE OF SERVICE: 12/28/2018 This 84-year-old woman who was admitted after right ankle fracture is improving significantly. The patient had a closed reduction; however, Orthopedics is planning two-stage surgery. PT/OT is evaluating the patient; possible ECF rehab is also being contemplated. No chest pain. No palpitation. On exam, alert and oriented x3. Pulse 78, blood pressure 124/76, respiration 16, temperature 98.2, pulse ox 96% on room air. HEENT: Conjunctivae normal. NECK: No jugular venous distention. CARDIOVASCULAR SYSTEM: S1, S2 muffled. RESPIRATORY SYSTEM: Breath sounds diminished at the bases. No rhonchi. No crackles. ABDOMEN: Soft. LEGS: Status post fracture on the right ankle. NERVOUS SYSTEM: No focal deficit. LABS: WBC 11.2, sodium 136, creatinine 1.65. ASSESSMENT: 1. Status post right ankle trimalleolar fracture with closed reduction and application of short splint. 2. Diabetes mellitus, type 2. 3. Gastroesophageal reflux disease. 4. Severe aortic stenosis, status post transcatheter aortic valve replacement. 5. History of congestive heart failure with chronic diastolic dysfunction, ejection fraction 60%. 6. History of cardiomyopathy. 7. History of cardiac valve disease. 8. History of diabetic retinopathy. 9. Peripheral neuropathy. 10.Bronchitis. 11.Remote history of nicotine dependence. 12.Increased random blood sugar. 13.Chronic kidney disease, stage III. RECOMMENDATIONS AND DISCUSSION: I recommend to continue current medications, continue with the monitoring, symptomatic treatment. Continue monitoring the fluid/electrolyte balance. Continue with current medications. PT/OT evaluation. Closely follow with Orthopedic Surgery. Possible ECF rehab. Further recommendations to follow. MMODL / IJN: [id number] /
[2018-12-28 20:00] LABS: Glucose,Whole Blood 252 mg/dL (75-99)
[2018-12-28] MEDS: DOXAZOSIN 4 MG TAB PO SCH (20:06)
[2018-12-28] MEDS ORDERED: LEVOFLOXACIN 250 MG TAB PO SCH (21:00)
[2018-12-28] MEDS ORDERED: LEVOFLOXACIN 250MG-D5W PMX 250 MG in DEXTROSE/WATER 1 50ML.BAG IVPB SCH (21:00)
[2018-12-29 05:35] VITALS: RESP 16
[2018-12-29 06:54] LABS: Glucose,Whole Blood 193 mg/dL (75-99)
[2018-12-29 07:59] VITALS: BP 150/65; PULSE 69; TEMP 97.1
[2018-12-29] MEDS: IPRATROPIUM-ALBUTEROL 3 ML NEB INHALATION SCH ×2 (08:19→12:03)
[2018-12-29 09:15] LABS: Basophils # (A) 0.1 k/uL (0-0.2); Basophils % (A) 1 %; Eosinophils # (A) 0.4 k/uL (0-0.7); Eosinophils % (A) 4 %; HCT 36.1 % (34.0-46.0); HGB 11.7 gm/dL (11.4-16.0); Lymphocytes # (A) 0.6 k/uL (1.0-4.8); Lymphocytes % (A) 6 %; MCH 28.5 pg (25.0-35.0); MCHC 32.4 g/dL (31.0-37.0); MCV 87.8 fL (80.0-100.0); Mean Platelet Volume 6.5; Monocytes # (A) 0.9 k/uL (0-1.0); Monocytes % (A) 8 %; Neutrophils # (A) 8.8 k/uL (1.3-7.7); Neutrophils % (A) 81 %; Platelet Count 201 k/uL (150-450); RBC 4.11 m/uL (3.80-5.40); RDW 15.1 % (11.5-15.5); WBC 10.9 k/uL (3.8-10.6)
[2018-12-29 09:20] LABS: Calcium 9.1 mg/dL (8.4-10.2); Potassium 4.8 mmol/L (3.5-5.1)
[2018-12-29] MEDS: glipiZIDE 10 MG TAB PO SCH (09:48)
[2018-12-29] MEDS: amLODIPine 10 MG TAB PO SCH (09:49)
[2018-12-29] MEDS: ATENOLOL 50 MG TAB PO SCH (09:49)
[2018-12-29] MEDS: ASCORBIC ACID 500 MG TAB PO SCH (09:49)
[2018-12-29] MEDS: CYANOCOBALAMIN 500 MCG TAB PO SCH (09:50)
[2018-12-29] MEDS: FERROUS SULFATE 325 MG TAB PO SCH (09:50)
[2018-12-29] MEDS: CHOLECALCIFEROL 1,000 UNIT TAB PO SCH ×2 (09:50→10:03)
[2018-12-29] MEDS: FAMOTIDINE 20 MG TAB PO SCH (09:50)
[2018-12-29] MEDS: LACTOBACILLUS ACIDOPH & BULGAR 1 EACH PACKET PO SCH (09:51)
[2018-12-29] MEDS: LINAGLIPTIN 5 MG TABLET PO SCH (09:52)
[2018-12-29] MEDS: VITAMIN E (DL,TOCOPHERYL ACET) 400 UNIT CAP PO SCH (09:52)
[2018-12-29] MEDS: MAGNESIUM OXIDE 400 MG TAB PO SCH (09:52)
[2018-12-29] MEDS: ZINC SULFATE 220 MG CAP PO SCH (09:53)
--- NOTE | 2018-12-29 10:11 | P.PN ---
Subjective Progress Note Date: 12/29/18 This patient is an 83-year-old female with a past medical history of type 2 diabetes, hypertension,chronic kidney disease, aortic valve repair in March 2018, and GERD that presented to the ED on 12/26/18 for evaluation of right ankle pain. The patient states that she was sitting in her chair at home when she stood up quickly and believe she tripped over a cat while her foot was asleep and fell, sustaining an injury to her ankle. She is unsure of the position of her ankle at the time of the fall. Patient states she experienced immediate pain and swelling to the right ankle, she was unable to ambulate. She crawled around the house and until she was able to get help from a friend. On presentation to the ED, she was found to have a right bimalleolar fracture with lateral subluxation of the talus. Reduction was attempted in the ED, with application of a posterior splint. Patient was admitted to the internal medicine team due to inability to perform activities of daily living at home and placement to rehab. Patient underwent a closed reduction of the right ankle with application of splint in the operating room 12/27/[address] Edmondson. Today, patient states her pain is improving in the right lower extremity, it is currently well-controlled. She is transferring without issue with the walker with the assistance of physical therapy. She is non weight bearing of the right lower extremity, although she is again questioning if she will have to remain non weight bearing after surgery. She denies chest pain, shortness of breath, nausea, vomiting, fevers. She has no new orthopedic complaints today. Vital signs stable. Objective - Vital Signs Vital signs: Vital Signs Temp 97.1 F L 12/29/18 07:58 Pulse 69 12/29/18 07:58 Resp 16 12/29/18 07:58 BP 150/65 12/29/18 07:58 Pulse Ox 96 12/29/18 07:58 Intake & Output 12/28/18 12/29/18 12/29/18 18:59 06:59 18:59 Other: Voiding Method Bedpan Bedside Commode Bedside Commode Bedpan Bedpan # Voids 2 2 - Exam On examination, patient is sitting up in bed in no acute distress. Patient is alert and oriented 3. On inspection of the right lower extremity, there is a bulky greco splint in place. The splint is clean, dry, and intact. The right toes are warm and well perfused with brisk capillary refill. Patient is able to wiggle her right toes without issue. Sensation is intact to light touch of the dorsal and plantar foot, as well as the first dorsal webspace. - Labs CBC & Chem 7: 12/29/18 08:03 12/29/18 08:03 Labs: Abnormal Lab Results - Last 24 Hours (Table) 12/28/18 12/28/18 12/28/18 Range/Units 07:18 11:15 17:16 WBC 11.2 H (3.8-10.6) k/uL Neutrophils # 8.9 H (1.3-7.7) k/uL Lymphocytes # 0.8 L (1.0-4.8) k/uL Sodium (137-145) mmol/L BUN (7-17) mg/dL Creatinine (0.52-1.04) mg/dL Glucose (74-99) mg/dL POC Glucose (mg/dL) 241 H 233 H (75-99) mg/dL 12/28/18 12/29/18 12/29/18 Range/Units 19:59 06:53 08:03 WBC 10.9 H (3.8-10.6) k/uL Neutrophils # 8.8 H (1.3-7.7) k/uL Lymphocytes # 0.6 L (1.0-4.8) k/uL Sodium (137-145) mmol/L BUN (7-17) mg/dL Creatinine (0.52-1.04) mg/dL Glucose (74-99) mg/dL POC Glucose (mg/dL) 252 H 193 H (75-99) mg/dL 12/29/18 Range/Units 08:03 WBC (3.8-10.6) k/uL Neutrophils # (1.3-7.7) k/uL Lymphocytes # (1.0-4.8) k/uL Sodium 135 L (137-145) mmol/L BUN 42 H (7-17) mg/dL Creatinine 1.81 H (0.52-1.04) mg/dL Glucose 204 H (74-99) mg/dL POC Glucose (mg/dL) (75-99) mg/dL Assessment and Plan Assessment: Right trimalleolar ankle fracture status-post closed reduction and application of bulky Greco splint Plan: - I again discussed the x-ray and clinical findings with the patient. We discussed that surgery would not be pursued until the swelling of the right ankle subsides. The patient will follow up with Dr. Edmondson in the office 1 week after discharge for soft tissue check and surgical planning. Bulky greco splint is to remain intact until this appointment. - Patient is to remain strictly nonweightbearing on the right lower extremity. PT/OT for gait and balance training. - Ice and elevation of the right lower extremity to decrease pain and swelling. - Possible discharge to ECF within next 24-48 hours.
[2018-12-29 11:08] LABS: Glucose,Whole Blood 213 mg/dL (75-99)
--- NOTE | 2018-12-29 11:43 | P.DS ---
Providers Date of admission: 12/26/18 13:40 Attending physician: Martin Gilliam Consults: 12/26/18 12:59 Consult Physician Urgent Consulting Provider: Eros Edmondson Consult Reason/Comments: Bimalleolar fracture Do you want consulting provider notified?: Yes 12/26/18 22:31 Consult Physician Routine Consulting Provider: Ihsan Sommers Consult Reason/Comments: chf Do you want consulting provider notified?: Yes Primary care physician: Sara Doan Hospital Course: Final diagnosis Status post right ankle trimalleolar fracture with the close reduction and application of short splint Diabetes mellitus type 2 GERD Severe aortic stenosis status post TAVR History of CHF with the chronic diastolic dysfunction ejection fraction 60% History of cardiomyopathy History of for cardiac valve disease History of diabetic retinopathy Peripheral neuropathy Bronchitis Remote history and nicotine dependence Increased and a blood sugar Chronic kidney disease stage III History of present illness this 83-year-old woman with a past medical history multiple medical problems was admitted with a right ankle fracture. Patient had a close reduction under anesthesia by orthopedic surgery. Because of Swelling and other issues orthopedic surgery would like to wait for definitive surgery with a 2 stage procedure. Currently the patient be discharged in a stable condition with guarded prognosis patient be sent to ECF at this time. Patient has been followed by Dr. Doan in the outpatient setting. Patient also had a recent valve surgery as listed. Patient was also seen by cardiology during the hospitalization and cleared for surgery. Patient also had elevated creatinine with chronic kidney disease. However the creatinine is stable at this time. Recommended close follow-up with the creatinine the ECF. On exam vitals are stable. Cardio S1 and S2 normal. Respiratory system clear to auscultation. Abdomen soft nontender. Right ankle fracture. Other recommendations per orthopedic surgery. Time taken 35 minutes. Patient Condition at Discharge: Stable Plan - Discharge Summary Discharge Rx Participant: No New Discharge Prescriptions: New Acetaminophen Tab [Tylenol Tab] 500 mg PO Q6H PRN #30 tablet PRN Reason: Pain Ipratropium-Albuterol Nebulize [Duoneb 0.5 mg-3 mg/3 ml Soln] 3 ml INHALATION RT-TID ampul.neb Levofloxacin [Levaquin] 250 mg PO Q48H #4 tab Continue glipiZIDE [Glucotrol] 10 mg PO PC-BID amLODIPine [Norvasc] 10 mg PO DAILY Ranitidine HCl [Zantac] 300 mg PO DAILY Terazosin [Hytrin] 5 mg PO HS Linagliptin [Tradjenta] 5 mg PO DAILY Ferrous Sulfate [Iron (65 MG Elemental)] 325 mg PO DAILY Cholecalciferol [Vitamin D3] 1,000 unit PO DAILY Ascorbic Acid [Vitamin C] 500 mg PO DAILY Furosemide [Lasix] 20 mg PO MOWEFR Atenolol [Tenormin] 100 mg PO BID Cyanocobalamin [Vitamin B-12] 500 mcg PO DAILY Flaxseed Oil [[place]-3 Flaxseed Oil] 3,600 mg PO HS Fish Oil/Dha/Epa [Fish Oil 1,200 mg Fish Oil] 1 cap PO DAILY Vitamin E 180 unit PO DAILY Sodium Polystyrene Sulfon/Sorb [Kionex 15 gm/60 ml Suspension] 15 gm PO Q14D L.acidoph,Paracasei, B.lactis [Probiotic] 1 cap PO DAILY Apixaban [Eliquis] 2.5 mg PO BID Furosemide [[facility]ix] [facility] Magnesium Oxide [Mag-Ox] 250 mg PO DAILY Zinc 50 mg PO DAILY Discharge Medication List Linagliptin [Tradjenta] 5 mg PO DAILY 01/27/17 [History] Ranitidine HCl [Zantac] 300 mg PO DAILY 01/27/17 [History] Terazosin [Hytrin] 5 mg PO HS 01/27/17 [History] amLODIPine [Norvasc] 10 mg PO DAILY 01/27/17 [History] glipiZIDE [Glucotrol] 10 mg PO PC-BID 01/27/17 [History] Ascorbic Acid [Vitamin C] 500 mg PO DAILY 07/15/17 [History] Cholecalciferol [Vitamin D3] 1,000 unit PO DAILY 07/15/17 [History] Ferrous Sulfate [Iron (65 MG Elemental)] 325 mg PO DAILY 07/15/17 [History] Furosemide [Lasix] 20 mg PO MOWEFR 07/15/17 [History] Atenolol [Tenormin] 100 mg PO BID 06/22/18 [History] Cyanocobalamin [Vitamin B-12] 500 mcg PO DAILY 06/22/18 [History] Fish Oil/Dha/Epa [Fish Oil 1,200 mg Fish Oil] 1 cap PO DAILY 06/22/18 [History] Flaxseed Oil [[place]-3 Flaxseed Oil] 3,600 mg PO HS 06/22/18 [History] L.acidoph,Paracasei, B.lactis [Probiotic] 1 cap PO DAILY 06/22/18 [History] Sodium Polystyrene Sulfon/Sorb [Kionex 15 gm/60 ml Suspension] 15 gm PO Q14D [History] Vitamin E 180 unit PO DAILY 06/22/18 [History] Apixaban [Eliquis] 2.5 mg PO BID 12/26/18 [History] Furosemide [Lasix] 40 mg PO SUTUTHSA 12/26/18 [History] Magnesium Oxide [Mag-Ox] 250 mg PO DAILY 12/26/18 [History] Zinc 50 mg PO DAILY 12/26/18 [History] Acetaminophen Tab [Tylenol Tab] 500 mg PO Q6H PRN #30 tablet 12/29/18 [Rx] Ipratropium-Albuterol Nebulize [Duoneb 0.5 mg-3 mg/3 ml Soln] 3 ml INHALATION RT -TID ampul.neb 12/29/18 [Rx] Levofloxacin [Levaquin] 250 mg PO Q48H #4 tab 12/29/18 [Rx] Follow up Appointment(s)/Referral(s): Sara Doan DO [Primary Care Provider] - 1 Week (After discharge from subacute rehab) Eros Edmondson MD [Medical Doctor] - 1 Week Activity/Diet/Wound Care/Special Instructions: [facility] [place] Diet: Consistent carb Activity: refer to ortho surg. restrictions - Strict non-weight bearing of right lower extremity - Bulky greco splint is to remain clean, dry, and intact - Ice and elevation of right lower extremity to decrease pain and swelling - Follow-up appointment with Dr. Edmondson in the office in 1 week CBC, BMP in 3 days diet cardiac Discharge Disposition: TRANSFER TO SNF/ECF
[2018-12-29] MEDS: HYDROcodone/APAP 5-325MG 1 EACH TAB PO PRN (14:51)
[2018-12-30] MEDS ORDERED: FAMOTIDINE 20 MG TAB PO SCH (09:00)
[2019-01-08] MEDS ORDERED: SODIUM POLYSTYRENE SULFONATE 15 GM/60 ML BOTTLE PO SCH (09:00)
== END 2018-12-29 17:09 | DRG 563 ==
LOC: EC 10:07 → 3NMEDONC 13:40
PROVIDERS: ADMIT Hospitalist; ATTEND Hospitalist
PROC: 2W3LX1Z Immobilization of Right Lower Extremity using Splint (ICD-10-PCS; 2018-12-26)
PROC: 0QSGXZZ Reposition Right Tibia, External Approach (ICD-10-PCS; 2018-12-27)
PROC: 0QSJXZZ Reposition Right Fibula, External Approach (ICD-10-PCS; principal; 2018-12-27 11:00)
DX: S82.851A Displaced trimalleolar fracture of right lower leg, initial encounter for closed fracture (principal); I13.0 Hypertensive heart and chronic kidney disease with heart failure and stage 1 through stage 4 chronic kidney disease, or unspecified chronic kidney disease; I42.9 Cardiomyopathy, unspecified; I50.32 Chronic diastolic (congestive) heart failure; E11.22 Type 2 diabetes mellitus with diabetic chronic kidney disease; E11.42 Type 2 diabetes mellitus with diabetic polyneuropathy; I27.20 Pulmonary hypertension, unspecified; I48.0 Paroxysmal atrial fibrillation; E11.319 Type 2 diabetes mellitus with unspecified diabetic retinopathy without macular edema; N18.3 Chronic kidney disease, stage 3 (moderate); I07.1 Rheumatic tricuspid insufficiency; E78.5 Hyperlipidemia, unspecified; I25.10 Atherosclerotic heart disease of native coronary artery without angina pectoris; J40 Bronchitis, not specified as acute or chronic; K21.9 Gastro-esophageal reflux disease without esophagitis; Z86.010 Personal history of colon polyps; Z79.01 Long term (current) use of anticoagulants; Z79.84 Long term (current) use of oral hypoglycemic drugs; Z79.899 Other long term (current) drug therapy; Z90.49 Acquired absence of other specified parts of digestive tract; Z87.891 Personal history of nicotine dependence; Z95.2 Presence of prosthetic heart valve; Z98.42 Cataract extraction status, left eye; Z98.41 Cataract extraction status, right eye; W01.0XXA Fall on same level from slipping, tripping and stumbling without subsequent striking against object, initial encounter; Z82.49 Family history of ischemic heart disease and other diseases of the circulatory system
CPT/HCPCS: 29515; 71045; 80048; 80053; 83735; 83880; 85025; 93005; 94640; 96374; 96375; 99284

== ENCOUNTER 2019-01-06 13:37 | Inpatient (IN) | payer MEDICARE ==
[~2019-01-06 13:37] MED LIST changes: -ALPRAZolam 0.25 MG TAB PO PRN; -ALPRAZolam 0.5 MG TAB PO PRN; -ASPIRIN 325 MG TAB PO STA; -ATORVASTATIN 80 MG TAB PO STA; +HYDROcodone/APAP 5-325MG 1 EACH TAB PO PRN; +NALOXONE 0.4 MG/ML 1 ML VIAL IV PRN; -NITROGLYCERIN SL TABS 0.4 MG TAB SUBLINGUAL PRN; +ONDANSETRON 4 MG/2 ML VIAL IVP PRN; -SODIUM CHLORIDE 0.9% 1,000 ML in EMPTY BAG 1 BAG IV ONE
[2019-01-06 14:09] VITALS: BMI 61.9
[2019-01-06 14:27] LABS: Glucose,Whole Blood 170 mg/dL (75-99)
--- NOTE | 2019-01-06 16:03 | XR ---
EXAMINATION TYPE: XR chest 1V DATE OF EXAM: 01/06/2019 COMPARISON: 12/28/2018 HISTORY: Shortness of breath TECHNIQUE: Single frontal view of the chest is obtained. FINDINGS: Cardiac stent is noted and there is cardiomegaly. Annular calcification noted. No pleural effusion or pneumothorax. Arthropathy of the shoulders. No overt failure. Heart is prominent in size. IMPRESSION: Cardiomegaly.
[2019-01-06 16:13] LABS: Basophils # (A) 0.1 k/uL (0-0.2); Basophils % (A) 1 %; Eosinophils # (A) 0.5 k/uL (0-0.7); Eosinophils % (A) 4 %; HCT 40.5 % (34.0-46.0); HGB 12.8 gm/dL (11.4-16.0); Hypochromasia Slight; Lymphocytes # (A) 0.9 k/uL (1.0-4.8); Lymphocytes % (A) 8 %; MCH 27.6 pg (25.0-35.0); MCHC 31.5 g/dL (31.0-37.0); MCV 87.4 fL (80.0-100.0); Mean Platelet Volume 6.6; Monocytes # (A) 0.8 k/uL (0-1.0); Monocytes % (A) 7 %; Neutrophils # (A) 8.8 k/uL (1.3-7.7); Neutrophils % (A) 79 %; Platelet Count 254 k/uL (150-450); RBC 4.63 m/uL (3.80-5.40); WBC 11.1 k/uL (3.8-10.6)
[2019-01-06 16:17] LABS: Albumin 3.8 g/dL (3.5-5.0); Calcium 9.7 mg/dL (8.4-10.2); INR 0.9 (<1.2); Potassium 5.1 mmol/L (3.5-5.1); Total Bilirubin 0.5 mg/dL (0.2-1.3); Total Protein 7.1 g/dL (6.3-8.2)
[2019-01-06 16:54] LABS: Glucose,Whole Blood 155 mg/dL (75-99)
[2019-01-06] MEDS ORDERED: LIDOCAINE 1% 20 ML VIAL (10MG/ML) FOR IV START INTRADERMA PRN (18:42)
[2019-01-06] MEDS ORDERED: fentaNYL (PF) 50 MCG/ML 2 ML AMP IVP PRN (18:42)
[2019-01-06] MEDS ORDERED: fentaNYL (PF) 50 MCG/ML 2 ML AMP IV PRN (18:42)
[2019-01-06] MEDS ORDERED: MIDAZOLAM (PF) 2 MG/2 ML VIAL IV PRN (18:42)
[2019-01-06] MEDS ORDERED: DEXAMETHASONE SOD PHOSPHATE 10 MG/ML 1 ML VIAL IV ONE (18:42)
[2019-01-06] MEDS ORDERED: HYDROmorphone 0.5 MG/0.5 ML SYRINGE IVP PRN (20:07)
[2019-01-06 20:37] LABS: Glucose,Whole Blood 185 mg/dL (75-99)
[2019-01-07] MEDS ORDERED: ceFAZolin IN SWFI 2 GM/20 ML SYRINGE IVP ONE (06:00)
[2019-01-07] MEDS: LACTATED RINGERS 1,000 ML IV SCH ×4 (06:34→22:00)
[2019-01-07] MEDS ORDERED: BUPIVACAIN-EPI 0.5%-1:200,000 30 ML VIAL ONE (09:06)
[2019-01-07] MEDS ORDERED: ePHEDrine SULFATE/0.9% NACL/PF 50 MG/5 ML SYRINGE IV ONE (09:06)
[2019-01-07] MEDS ORDERED: fentaNYL (PF) 50 MCG/ML 2 ML AMP ONE (09:06)
[2019-01-07] MEDS ORDERED: SODIUM CHLORIDE 0.9% 100 ML with CLINDAMYCIN 600 MG IV ONE ×2 (09:06)
[2019-01-07] MEDS ORDERED: PROPOFOL 10 MG/ML 20 ML VIAL IV ONE (09:06)
[2019-01-07] MEDS ORDERED: ROCURONIUM BROMIDE 10 MG/ML 10 ML VIAL IV ONE (09:06)
[2019-01-07] MEDS ORDERED: LIDOCAINE 1% INJ 10MG/ML (20 ML MDV) ONE (09:06)
[2019-01-07] MEDS ORDERED: SODIUM CHLORIDE 0.9% 50 ML with ceFAZolin 2,000 MG IV ONE ×2 (09:06)
[2019-01-07] MEDS ORDERED: CLINDAMYCIN 150 MG/ML 4 ML VIAL ONE (09:06)
[2019-01-07] MEDS ORDERED: IV FLUID CONTINUATION 1,000 ML IV ONE (09:06)
[2019-01-07] MEDS ORDERED: MIDAZOLAM 2 MG/2 ML VIAL ONE (09:06)
[2019-01-07] MEDS ORDERED: SUCCINYLCHOLINE CHLORIDE 100 MG/5 ML SYR IV ONE (09:06)
--- NOTE | 2019-01-07 09:55 | P.ONQ ---
Anesthesiology Proc Note - PNB - Peripheral Nerve Block Performed Right Adductor Canal Single Time Out Performed: Yes Procedure Start Time: 08:55 Procedure Stop Time: 08:57 Indication: Acute Post-Operative Pain, Analgesia, Requested by physician Sedation Type: Sedate with meaningful contact maintained Preparation: Sterile Prep Position: Supine Catheter: None Needle Types: On-Q Needle Size: 50mm (2") Needle Gauge: 21 Technique: Ultrasound Injectate: Other (see comment) (0.5% bupivacaine with 1:200k epinephrine 15cc) Blood Aspirated: No Pain Paresthesia on Injection Noted: No Resistance on Injection: Normal Events: Uneventful and Well Tolerated
--- NOTE | 2019-01-07 09:56 | P.ONQ ---
Anesthesiology Proc Note - PNB - Peripheral Nerve Block Performed Right Popliteal Single Time Out Performed: Yes Procedure Start Time: 08:59 Procedure Stop Time: 09:02 Indication: Acute Post-Operative Pain, Analgesia, Requested by physician Sedation Type: Sedate with meaningful contact maintained Preparation: Sterile Prep Position: Supine Catheter: None Needle Types: On-Q Needle Size: 50mm (2") Needle Gauge: 21 Technique: Ultrasound Injectate: Other (see comment) (0.5% bupivacaine with 1:200k epinephrine 15cc) Adjunct: Epinephrine (see comment for dilution ratio) Blood Aspirated: No Pain Paresthesia on Injection Noted: No Resistance on Injection: Normal Events: Uneventful and Well Tolerated
[2019-01-07] MEDS ORDERED: ACETAMINOPHEN TAB 500 MG TAB PO PRN (10:35)
[2019-01-07] MEDS ORDERED: LACTATED RINGERS 1,000 ML IV ONE (10:35)
--- NOTE | 2019-01-07 10:44 | P.CONS ---
History of Present Illness - Reason for Consult Consult date: 01/06/19 Preoperative clearance - History of Present Illness 83-year-old the alice female is admitted for urgent intervention for her right ankle fracture. Patient was recently admitted for that was discharged home to come back for elective surgery because of her edema in the right ankle area. As consulted for preoperative clearance patient does have multiple medical problems including recent aortic valve replacement with a bovine bioprosthetic valve and patient is on Eliquis for atrial fibrillation. Patient does not have any signs or symptoms of congestive heart failure exacerbation at this point of time patient appears to have chronic diastolic dysfunction is on Lasix at home. Patient was admitted in the past for CHF exacerbation patient denied any chest pain patient was cleared for surgery during her last hospitalization by cardiology. EKG did not show any acute ST-T wave changes. Patient does appear to have some kidney dysfunction as well patient and patient' s baseline creatinine 2 months ago was around 1 which makes her chronic kidney disease stage II but during her last hospitalization and discharge it appears to be 1.7. I ordered repeat the basic metabolic profile which showed creatinine of 1.3 chest x-ray did not show any pulmonary edema patient clinically does not have any elevated JVD patient function status is fairly well except for her fracture and decreased functionality because of that. I had a length discussion with the patient regarding the risk and benefit of surgery patient easily intermediate risk same thing was explained to the patient. We anticipate some complications like pulmonary edema post surgery and atrial fibrillation other than that patient should fairly do well because of the nature of the surgery. She is agreeable for the surgery after this discussion. Review of Systems REVIEW OF SYSTEMS: CONSTITUTIONAL: No fever, no malaise, no fatigue. HEENT: No recent visual problems or hearing problems. Denied any sore throat. CARDIOVASCULAR: No chest pain, orthopnea, PND, no palpitations, no syncope. PULMONARY: No shortness of breath, no cough, no hemoptysis. GASTROINTESTINAL: No diarrhea, no nausea, no vomiting, no abdominal pain. NEUROLOGICAL: No headaches, no weakness, no numbness. HEMATOLOGICAL: Denies any bleeding or petechiae. GENITOURINARY: Denies any burning micturition, frequency, or urgency. MUSCULOSKELETAL/RHEUMATOLOGICAL: Denies any joint pain, swelling, or any muscle pain. ENDOCRINE: Denies any polyuria or polydipsia. The rest of the 14-point review of systems is negative. Past Medical History Past Medical History: Diabetes Mellitus, GERD/Reflux, Renal Disease, Vascular Disorder Additional Past Medical History / Comment(s): CHF, cardiomyopathy, cardiac valve problem, NIDDM type II, past diabetic retinopathy-"they say I don't have it anymore.", peripheral neuropathy L hand and L foot, CKD stage III, bronchitis History of Any Multi-Drug Resistant Organisms: None Reported Past Surgical History: Appendectomy Additional Past Surgical History / Comment(s): colonoscopy with polyps, cataracts. Bilateral cataract surgery. Heart Valve replacement 08/2018 Past Anesthesia/Blood Transfusion Reactions: Motion Sickness Past Psychological History: No Psychological Hx Reported Additional Psychological History / Comment(s): Pt resides in her own home alone She uses cane She drives locally, familiar areas. Smoking Status: Former smoker Past Alcohol Use History: None Reported Additional Past Alcohol Use History / Comment(s): smoked from 20's to 60's 1ppd ; quit 30 yrs ago Past Drug Use History: None Reported - Past Family History Father Family Medical History: Myocardial Infarction (SC) Additional Family Medical History / Comment(s): Father of a SC at the age of 58yrs. Mother Family Medical History: No Reported History Additional Family Medical History / Comment(s): Mother lived to be 84 yrs old. Medications and Allergies Home Medications Medication Instructions Recorded Confirmed Type Linagliptin [Tradjenta] 5 mg PO DAILY 01/27/17 01/06/19 History Terazosin [Hytrin] 5 mg PO HS 01/27/17 01/06/19 History amLODIPine [Norvasc] 10 mg PO DAILY 01/27/17 01/06/19 History glipiZIDE [Glucotrol] 10 mg PO PC-BID 01/27/17 01/06/19 History Ascorbic Acid [Vitamin C] 500 mg PO DAILY 07/15/17 12/26/18 History Cholecalciferol [Vitamin D3] 1,000 unit PO DAILY 07/15/17 01/06/19 History Ferrous Sulfate [Iron (65 MG 325 mg PO DAILY 07/15/17 01/06/19 History Elemental)] Furosemide [Lasix] 20 mg PO MOWEFR 07/15/17 01/06/19 History Cyanocobalamin [Vitamin B-12] 500 mcg PO DAILY 06/22/18 01/06/19 History Fish Oil/Dha/Epa [Fish Oil 1,200 1 cap PO DAILY 06/22/18 01/06/19 History mg Fish Oil] Flaxseed Oil [[place]-3 Flaxseed Oil] 3,600 mg PO HS 06/22/18 01/06/19 History L.acidoph,Paracasei, B.lactis 1 cap PO HS 06/22/18 01/06/19 History [Probiotic] Sodium Polystyrene Sulfon/Sorb 15 gm PO Q14D 06/22/18 01/06/19 History [Kionex 15 gm/60 ml Suspension] Apixaban [Eliquis] 2.5 mg PO BID 12/26/18 01/06/19 History Furosemide [Lasix] 40 mg PO SUTUTHSA 12/26/18 01/06/19 History Zinc 50 mg PO DAILY 12/26/18 01/06/19 History Acetaminophen Tab [Tylenol Tab] 500 mg PO Q6H PRN #30 tablet 12/29/18 01/06/19 Rx Hydrocodone/Acetaminophen [[place] 1 tab PO Q6HR PRN #40 tab 12/29/18 01/06/19 Rx 5-325] Ipratropium-Albuterol Nebulize 3 ml INHALATION RT-TID ampul.neb 12/29/18 Rx [Duoneb 0.5 mg-3 mg/3 ml Soln] Atenolol 100 mg PO DAILY 01/06/19 01/06/19 History Docusate [Colace] 100 mg PO BID 01/06/19 01/06/19 History Magnesium Oxide [Mag-Ox] 400 mg PO DAILY 01/06/19 01/06/19 History Ranitidine HCl 150 mg PO HS 01/06/19 01/06/19 History Vitamin E (Dl,Tocopheryl Acet) 400 unit PO DAILY 01/06/19 01/06/19 History [Vitamin E] Allergies Allergy/AdvReac Type Severity Reaction Status Date / Time No Known Allergies Allergy Verified 01/06/19 17:22 Physical Exam Vitals: Vital Signs Temp Pulse Resp BP Pulse Ox 01/07/19 07:16 98.7 F 88 16 160/63 96 01/07/19 03:18 16 01/07/19 01:45 98.5 F 67 16 159/66 92 L 01/07/19 00:00 18 01/06/19 20:00 98.7 F 66 18 148/70 95 01/06/19 16:00 59 L 16 01/06/19 13:58 98.0 F 59 L 16 155/78 96 Intake and Output 01/06/19 01/07/19 01/07/19 22:59 06:59 14:59 Intake Total 240 104 Balance 240 104 Intake: IV 104 Oral 240 Other: Voiding Method Bedpan Bedpan # Voids 0 PHYSICAL EXAMINATION: GENERAL: The patient is alert and oriented x3, not in any acute distress. Well developed, well nourished. HEENT: Pupils are round and equally reacting to light. EOMI. No scleral icterus. No conjunctival pallor. Normocephalic, atraumatic. No pharyngeal erythema. No thyromegaly. CARDIOVASCULAR: S1 and S2 present. No murmurs, rubs, or gallops. PULMONARY: Chest is clear to auscultation, no wheezing or crackles. ABDOMEN: Soft, nontender, nondistended, normoactive bowel sounds. No palpable organomegaly. MUSCULOSKELETAL: No joint swelling or deformity. EXTREMITIES: Right ankle is wrapped with Enio bandage NEUROLOGICAL: Gross neurological examination did not reveal any focal deficits. SKIN: No rashes. Results CBC & Chem 7: 01/06/19 15:33 01/06/19 15:33 Labs: Abnormal Lab Results - Last 24 Hours (Table) 01/06/19 01/06/19 01/06/19 Range/Units 14:14 15:33 15:33 WBC 11.1 H (3.8-10.6) k/uL Neutrophils # 8.8 H (1.3-7.7) k/uL Lymphocytes # 0.9 L (1.0-4.8) k/uL BUN 34 H (7-17) mg/dL Creatinine 1.30 H (0.52-1.04) mg/dL Glucose 131 H (74-99) mg/dL POC Glucose (mg/dL) 170 H (75-99) mg/dL 01/06/19 01/06/19 Range/Units 16:42 20:25 WBC (3.8-10.6) k/uL Neutrophils # (1.3-7.7) k/uL Lymphocytes # (1.0-4.8) k/uL BUN (7-17) mg/dL Creatinine (0.52-1.04) mg/dL Glucose (74-99) mg/dL POC Glucose (mg/dL) 155 H 185 H (75-99) mg/dL Assessment and Plan Plan: -Preoperative clearance: As mentioned above patient is intermediate risk for right ankle surgery patient should fairly do well during the surgery but we expect a competition self A. fib with rapid ventricular rate of pulmonary edema post surgery. I do not have the medications verified with patient it was started back on beta joaquin as best possible anti-correlation will be held since patient has bovine bioprosthetic valve it's okay to hold anticoagulation unsure patient did hold this medication at home or not. 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 -Right ankle fracture management as per primary service
--- NOTE | 2019-01-07 10:56 | P.OP ---
Date of Procedure: 01/07/19 Preoperative Diagnosis: 1. Right unstable trimalleolar ankle fracture 2. Unsteady gait with history of multiple falls 3. Type 2 diabetes 4. Coronary artery disease 5. Hypertension 6. Osteoporosis Postoperative Diagnosis: Same Procedure(s) Performed: 1. Open reduction and internal fixation of right trimalleolar ankle fracture with primary hindfoot TTC nail 2. Application of short leg splint by physician, right ankle Implants: Valor Nail 250mm x 10mm Anesthesia: GETA Surgeon: Eros Edmondson Vamp Maker #1: Cyndee Hull Estimated Blood Loss (ml): 10 IV fluids (ml): 600 Pathology: none sent Condition: stable Disposition: PACU Indications for Procedure: The patient is a very pleasant 83-year-old female who previously sustained a fall resulting in an unstable right trimalleolar ankle fracture. She was admitted for placement and underwent closed reduction and splinting. After she was discharged to a [facility] I met with the patient and her daughter in the office. We discussed treatment options including nonoperative treatment, traditional open reduction and internal fixation, operative fixation with a primary TTC fusion nail without preparation of the joint surfaces and external fixation. We discussed the pros and cons of all treatment options. The patient and her daughter stated that she would have a very difficult time following postoperative restrictions and being nonweightbearing with the traditional open reduction internal fixation. The patient very frankly stated that she would walk as soon as she was able and would not be able to comply with weightbearing restrictions. We discussed her activity level at length. The patient is a limited ambulator in the home. Due to her wishes to regain weightbearing as soon as possible, inability to comply with postoperative weight restrictions, age, activity level, and multiple other comorbidities we all agreed she would do best with a primary hindfoot nail. We discussed the procedure at length in the office. We discussed that the ankle would be held at neutral but would no longer move. We also discussed that I would let her walk in a boot as soon as her incisions have healed. We discussed potential risks and complications of surgery including but not limited to risk of anesthesia, superficial infection, deep infection, delayed wound healing, malunion, nonunion, intraoperative fracture around the implant, postoperative periprosthetic fracture around the implant, DVT, PE, chronic pain, chronic swelling, and inability to regain preinjury level of function, other medical complications, generalized to satisfaction with surgery, and possibly loss of life or limb. The patient and her daughter were well aware of these potential complications and also acknowledges that there are other less common complications possible. They provided their verbal and written consent to go forward with the above surgery. Description of Procedure: The patient was identified in preoperative holding and the correct right leg was marked with my initials. I reviewed the consent and surgical plan with the patient and her daughter. All of their questions were answered. A popliteal and saphenous nerve block was placed by anesthesia. The patient was then brought back to the operating room where she was positioned on the OR table. A general anesthetic and preoperative antibiotics were given by anesthesia. Once the patient was under anesthesia she was positioned on the OR table. A tourniquet was applied to the proximal aspect of the right leg. A bump was placed under the right buttock internally rotating the leg to neutral. A ramp was placed under the right leg to facilitate intraoperative fluoroscopic imaging. The left leg was secured to the table with foam and tape. The right leg was then prepped and draped in the standard sterile fashion. Prior to starting surgery timeout was performed identifying the correct patient, operative extremity, and procedure. The patient's leg was then elevated, exsanguinated with an Esmarch bandage, and the tourniquet was inflated to 250 mmHg. I began by performing a closed reduction of the ankle. Once the ankle was anatomically reduced and the talus was centered in the ankle mortise on both a mortise and lateral view I placed an eccentric 0.0625 wire from above the medial malleolus into the talus holding the reduction. I then made a longitudinal incision on the plantar aspect of the foot in line with the second toe and long axis of the tibia. Blunt dissection was carried down to the plantar aspect of the calcaneus. A guidewire was placed on the plantar surface of the calcaneus and its position and orientation was manipulated until it was co-linear with the long axis of the tibia on both an AP and lateral view. The wire was then driven up through the calcaneus and into the talus and tibia. It was found to be centered on both views and the tibia. An opening reamer was then used. The wire was removed and a long ball-tipped guidewire was placed through the plantar incision up into the tibia. I then sequentially reamed in 1 mm increments until chatter was obtained with a 10 mm reamer. I then overreamed in half millimeter increments up to an 11 mm reamer. I elected to use a 250 mm length and 10 mm diameter nail. The nail was dispensed and hooked up to the targeting arm. I verified that all the trochars lined up with their corresponding slots on the nail. The nail was then gently tapped into place over the guidewire and its progress was monitored with fluoroscopy to prevent iatrogenic fracture. The nail was fully seated. Once the nail was fully seated I placed locking screws in the tibia, calcaneus, and across the subtalar joint. The targeting arm was then removed and final fluoroscopic images were taken. The talus was centered in the ankle mortise and the nail was centered in the tibia on both views. I did not appreciate any iatrogenic fractures. All wounds were then copiously irrigated and closed. A sterile dressing was applied. A well-padded bulky Villa splint was placed. The patient was then awoken from her anesthetic, transferred to a gurney, and brought to PACU without the procedure well. Cyndee Hull PA-C was required as a skilled assistant education director for patient positioning, surgical exposure, reduction of fracture, placement of hardware, closure of wound, and application of splint. Plan: The patient is going to be readmitted to the floor overnight for pain control and postoperative antibiotics. She is going to remain nonweightbearing for 2 weeks until her incisions have healed. She is okay to discharge back to the [facility] on her pain is controlled. I will plan on seeing her in the office in 2 weeks for splint removal, suture removal of the incisions have healed, and nonweightbearing x-rays of the ankle and tibia. If her incisions have healed and she is doing well in 2 weeks I will let her weight-bear as tolerated in a tall boot.
[2019-01-07] MEDS ORDERED: HYDROmorphone 0.5 MG/0.5 ML SYRINGE IVP PRN ×2 (11:05)
[2019-01-07] MEDS ORDERED: SENNOSIDES-DOCUSATE SODIUM 1 EACH TAB PO PRN (11:05)
--- NOTE | 2019-01-07 11:13 | FL ---
EXAMINATION TYPE: FL guidance operating room, XR ankle limited RT DATE OF EXAM: 01/07/2019 CLINICAL HISTORY: Right ankle fracture. TECHNIQUE: Fluoroscopy. Limited intraoperative views right ankle. COMPARISON: Right ankle x-ray December 26, 2018. FINDINGS: Fluoroscopic guidance was provided during open reduction internal fixation procedure perfo rmed by Dr. Edmondson. A total of 1 minute 4 seconds of fluoroscopic time was utilized during the pro cedure and 5 spot intraoperative images spot images are acquired. Images acquired show placement of fixating jean through mid to distal tibial diaphysis extending throu gh talus and calcaneus with 2 additional calcaneal and calcaneal talar arthrodesis screws posteriorly . Moderate inferior calcaneal spur incidentally seen. IMPRESSION: As Above.
[2019-01-07] MEDS: HYDROmorphone 0.5 MG/0.5 ML SYRINGE IVP ONE ×2 (11:25→11:32)
[2019-01-07] MEDS: IPRATROPIUM-ALBUTEROL 3 ML NEB INHALATION SCH ×2 (12:11→20:45)
[2019-01-07 12:22] LABS: Basophils % (A) 0 %; Eosinophils # (A) 0.1 k/uL (0-0.7); Eosinophils % (A) 1 %; HCT 38.4 % (34.0-46.0); HGB 11.8 gm/dL (11.4-16.0); Hypochromasia Slight; Lymphocytes # (A) 0.4 k/uL (1.0-4.8); Lymphocytes % (A) 4 %; MCH 26.4 pg (25.0-35.0); MCHC 30.7 g/dL (31.0-37.0); Mean Platelet Volume 6.7; Monocytes # (A) 0.5 k/uL (0-1.0); Monocytes % (A) 4 %; Neutrophils # (A) 10.6 k/uL (1.3-7.7); Neutrophils % (A) 90 %; Platelet Count 244 k/uL (150-450); RBC 4.47 m/uL (3.80-5.40); RDW 14.8 % (11.5-15.5); WBC 11.7 k/uL (3.8-10.6)
[2019-01-07] MEDS: HYDROcodone/APAP 5-325MG 1 EACH TAB PO PRN ×2 (13:06→20:36)
[2019-01-07] MEDS: hydrOXYzine PAMOATE 25 MG CAP PO PRN ×2 (13:06→20:36)
[2019-01-07] MEDS: ceFAZolin IN SWFI 2 GM/20 ML SYRINGE IVP SCH (15:22)
[2019-01-07] MEDS: ATENOLOL 50 MG TAB PO SCH (15:22)
[2019-01-07] MEDS: DOXAZOSIN 4 MG TAB PO SCH (20:34)
[2019-01-07] MEDS: FAMOTIDINE 20 MG TAB PO SCH (20:35)
[2019-01-08] MEDS: ceFAZolin IN SWFI 2 GM/20 ML SYRINGE IVP SCH (00:23)
[2019-01-08] MEDS: HYDROcodone/APAP 5-325MG 1 EACH TAB PO PRN ×3 (06:17→20:04)
[2019-01-08] MEDS: hydrOXYzine PAMOATE 25 MG CAP PO PRN (06:17)
[2019-01-08] MEDS: ATENOLOL 50 MG TAB PO SCH (08:17)
[2019-01-08] MEDS: LACTATED RINGERS 1,000 ML IV SCH ×2 (08:18→17:50)
[2019-01-08 08:31] LABS: HCT 34.4 % (34.0-46.0); HGB 10.8 gm/dL (11.4-16.0); Hypochromasia Slight; MCH 27.4 pg (25.0-35.0); MCHC 31.5 g/dL (31.0-37.0); MCV 87.2 fL (80.0-100.0); Platelet Count 229 k/uL (150-450); RBC 3.95 m/uL (3.80-5.40); RDW 14.9 % (11.5-15.5); WBC 14.9 k/uL (3.8-10.6)
[2019-01-08] MEDS: IPRATROPIUM-ALBUTEROL 3 ML NEB INHALATION SCH ×3 (08:49→20:50)
--- NOTE | 2019-01-08 10:05 | P.PN ---
Progress Note - Text Progress Note Date: 01/08/19 Patient is a very pleasant 83-year-old female who is seen than the bedside after undergoing open reduction internal fixation of the right trimalleolar ankle with primary hindfoot TT C nail performed by Dr. Edmondson on 01/07/2019. Postoperatively the patient's pain has been adequately controlled. She is eating and voiding without difficulty. She is remain nonweightbearing on the right lower extremity. She is planning for discharge to a rehabilitation facility as early as tomorrow, 01/09/2019. She has not yet been seen and examined by case management. She was originally direct admitted from the office to the hospital on 01/06/2019. Physical Exam: Postoperative day #1 Patient is awake, alert, and oriented 3 Vital signs stable Good chest excursion with deep inspiration and expiration Bulky Villa dressing is intact over the right lower extremity Dressing is clean, dry, and intact No pain with palpation over the right knee Patient is able to wiggle toes of the right foot without significant difficulty Neurovascularly intact right lower extremity Assessment: Status post open reduction and internal fixation of right trimalleolar ankle fracture with primary hindfoot TT C nail And sitting with history of multiple falls History of type 2 diabetes History of coronary artery disease History of hypertension Osteoporosis Plan: 1. Patient will remain in the hospital over the weekend with plans to discharge to rehabilitation facility as early as this coming Wednesday, 2018. She'll remain strict nonweightbearing on the right lower extremity. She may elevate the right lower extremity and apply ice over the splint for comfort support as needed. She should keep the splint on the right lower extremity clean, dry, and intact. We will continue to follow patient closely in regards to her right lower extremity status post surgical intervention. 2. Patient will continue to increase in exam by medicine for her other medical diagnoses 3. Continue pain control with [place] 5 mg as she 25 mg and Tylenol 500 mg prescribed as needed for control of her symptoms 4. Patient will be discussed with case management who will begin to work on her transfer and approval to a rehabilitation facility
[2019-01-08] MEDS: APIXABAN 2.5 MG TABLET PO SCH ×2 (12:09→20:04)
[2019-01-08 12:31] LABS: Calcium 8.8 mg/dL (8.4-10.2); Potassium 5.2 mmol/L (3.5-5.1)
[2019-01-08] MEDS ORDERED: FUROSEMIDE 10 MG/ML 4 ML VIAL IV STA (13:19)
--- NOTE | 2019-01-08 13:24 | P.PN ---
Subjective 83-year-old female with multiple medical problems including atrial fibrillation heart failure chronic diastolic dysfunction admitted for elective right ankle open reduction and fixation for trimalleolar fracture sepsis underwent surgery. Patient is bit short of breath or believe secondary to pulmonary edema patient does have crackles on exam does have elevated JVD. Patient was started on Lasix IV fluids will be discontinued will obtain a chest x-ray. Serum creatinine around 1.27 and 1.3 on admission baseline around 1. Patient will be resumed on Eliquis Constitutional: Denied any fatigue denied any fever. Cardio vascular: denied any chest pain, palpitations Gastrointestinal denied any nausea vomiting Pulmonary: As mentioned in HPI Neurologic denied any new focal deficits All inpatient medications were reviewed and appropriate changes in these medications as dictated in the interval history and assessment and plan. Objective - Vital Signs Vital signs: Vital Signs Temp 97.5 F L 01/08/19 08:21 Pulse 93 01/08/19 08:21 Resp 16 01/08/19 08:21 BP 116/63 01/08/19 08:21 Pulse Ox 92 L 01/08/19 08:21 Intake & Output 01/07/19 01/08/19 01/08/19 18:59 06:59 18:59 Intake Total 1287 1520 250 Output Total 20 Balance 1267 1520 250 Intake: IV 804 Intake, IV Titration 1000 Amount Lactated Ringers 1,000 ml 1000 @ 100 mls/hr IV .Q10H [facility] Rx#:[id number] Oral 480 520 250 Other 3 Output: Estimated Blood Loss 20 Other: Voiding Method Bedpan # Voids 0 4 - Exam PHYSICAL EXAMINATION: GENERAL: The patient is alert and oriented x3, not in any acute distress. Well developed, well nourished. HEENT: Pupils are round and equally reacting to light. EOMI. No scleral icterus. No conjunctival pallor. Normocephalic, atraumatic. No pharyngeal erythema. No thyromegaly. CARDIOVASCULAR: S1 and S2 present. No murmurs, rubs, or gallops. Patient does have minimally elevated JVD PULMONARY: Basilar crackles on exam ABDOMEN: Soft, nontender, nondistended, normoactive bowel sounds. No palpable organomegaly. MUSCULOSKELETAL: No joint swelling or deformity. EXTREMITIES: Right ankle is wrapped with [place]io bandage NEUROLOGICAL: Gross neurological examination did not reveal any focal deficits. SKIN: No rashes. - Labs CBC & Chem 7: 01/08/19 07:35 01/08/19 07:35 Labs: Abnormal Lab Results - Last 24 Hours (Table) 01/08/19 01/08/19 Range/Units 07:35 07:35 WBC 14.9 H (3.8-10.6) k/uL Hgb 10.8 L (11.4-16.0) gm/dL Sodium 134 L (137-145) mmol/L Potassium 5.2 H (3.5-5.1) mmol/L BUN 27 H (7-17) mg/dL Creatinine 1.27 H (0.52-1.04) mg/dL Glucose 183 H (74-99) mg/dL Assessment and Plan Plan: -Open reduction internal fixation for right ankle fracture postoperative day one : Pain management as per primary service with the avoid opiates, benzodiazepines barbiturates and anticholinergic medications these are being discontinued except for [place]. Patient cannot take nonsteroidal anti- inflammatory see their although can take tramadol if needed. Patient can be resumed on anticoagulation -Congestive heart failure chronic diastolic dysfunction with acute exacerbation because of IV fluids in the perioperative period, patient will be given a dose of Lasix will obtain a chest x-ray reevaluate after the Lasix -Atrial fibrillation presently rate controlled anti-coagulation will be resumed . 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 -Right ankle fracture management as per primary service
--- NOTE | 2019-01-08 15:42 | XR ---
EXAMINATION TYPE: XR chest 1V DATE OF EXAM: 01/08/2019 COMPARISON: 01/06/2019 HISTORY: Lung crackles TECHNIQUE: Single frontal view of the chest is obtained. FINDINGS: A single view of the chest shows an enlarged heart. There is mild pulmonary congestion. Th ere is coarse density at the left lung base. Thoracic aorta is atheromatous. IMPRESSION: Mild pulmonary congestion without overt heart failure. Pulmonary vascularity increased s lightly compared to last exam.
[2019-01-08] MEDS: DOXAZOSIN 4 MG TAB PO SCH (20:04)
[2019-01-08] MEDS: FAMOTIDINE 20 MG TAB PO SCH (20:04)
[2019-01-09] MEDS: LACTATED RINGERS 1,000 ML IV SCH ×2 (02:19→20:56)
[2019-01-09] MEDS: HYDROcodone/APAP 5-325MG 1 EACH TAB PO PRN (05:57)
[2019-01-09] MEDS: APIXABAN 2.5 MG TABLET PO SCH ×2 (08:10→20:57)
[2019-01-09] MEDS: ATENOLOL 50 MG TAB PO SCH (08:10)
[2019-01-09] MEDS ORDERED: FUROSEMIDE 10 MG/ML 4 ML VIAL IV STA (08:51)
[2019-01-09] MEDS: IPRATROPIUM-ALBUTEROL 3 ML NEB INHALATION SCH ×3 (09:06→19:32)
[2019-01-09 10:15] LABS: Calcium 8.7 mg/dL (8.4-10.2); Potassium 4.8 mmol/L (3.5-5.1)
--- NOTE | 2019-01-09 12:18 | P.PN ---
Subjective Progress Note Date: 01/09/19 This patient is a pleasant 83-year-old female with a past medical history of type 2 diabetes, CHF, chronic kidney disease, coronary artery disease, hypertension, and osteoporosis who is seen bedside after undergoing open reduction internal fixation of the right trimalleolar ankle with primary hindfoot TTC nail performed by Dr. Edmondson on 01/07/2019. Patient was direct admitted on Wednesday afternoon 01/06/2019 for the planned surgery on 01/06/2019. Today's postoperative day #2. Patient states her pain is well-controlled. She is remaining non-weightbearing on the right lower extremity. She states she is unsure how she is doing with physical therapy, she is mildly confused during my examination. She has no new complaints today. Objective - Vital Signs Vital signs: Vital Signs Temp 98.5 F 01/08/19 22:10 Pulse 65 01/09/19 01:45 Resp 16 01/09/19 01:45 BP 139/74 01/09/19 01:45 Pulse Ox 95 01/09/19 01:45 Intake & Output 01/08/19 01/09/19 01/09/19 18:59 06:59 18:59 Intake Total 500 940 Balance 500 940 Intake: Oral 500 940 Other: Voiding Method Bedpan # Voids 2 3 - Exam On examination, the patient is sitting up in bed in no acute distress. Patient is alert and oriented 2. On inspection of the right lower extremity, there is a bulky Villa splint in place. The splint is clean, dry, and intact. The right toes are warm and well perfused, with capillary refill less than 2 seconds. The patient is able to wiggle her right toes without difficulty. Sensation is intact to light touch of the right dorsal and plantar foot, as well as the dorsal first webspace. Neurovascular is intact of the right lower extremity. Compression stocking in place on the left lower extremity, the left calf is soft to palpation. - Labs CBC & Chem 7: 01/08/19 07:35 01/09/19 09:20 Labs: Abnormal Lab Results - Last 24 Hours (Table) 01/08/19 01/08/19 Range/Units 07:35 07:35 WBC 14.9 H (3.8-10.6) k/uL Hgb 10.8 L (11.4-16.0) gm/dL Sodium 134 L (137-145) mmol/L Potassium 5.2 H (3.5-5.1) mmol/L BUN 27 H (7-17) mg/dL Creatinine 1.27 H (0.52-1.04) mg/dL Glucose 183 H (74-99) mg/dL Assessment and Plan Assessment: Right trimalleolar ankle fracture status post open reduction and internal fixation with primary hindfoot TTC nail on 01/07/19 Plan: - Strict nonweightbearing of the right lower extremity. Ice and elevate the right lower extremity to decrease pain and swelling. - Physical therapy for gait and balance training. - Continue pain management with [place] 5/325mg. - 2 doses of postoperative antibiotics complete. - Anticoagulation per medicine. Appreciate medicine consult for medical management. - Anticipate discharge to extended care facility in [place]. Patient discussed with case management. Anticipate discharge within the next 24 hours.
[2019-01-09] MEDS: DOXAZOSIN 4 MG TAB PO SCH (20:57)
[2019-01-09] MEDS: FAMOTIDINE 20 MG TAB PO SCH (20:57)
[2019-01-10] MEDS: LACTATED RINGERS 1,000 ML IV SCH ×2 (01:49→19:15)
[2019-01-10] MEDS: APIXABAN 2.5 MG TABLET PO SCH ×2 (08:33→21:18)
[2019-01-10] MEDS: ATENOLOL 50 MG TAB PO SCH (08:33)
--- NOTE | 2019-01-10 08:36 | P.PN ---
Subjective Progress Note Date: 01/10/19 This patient is a pleasant 83-year-old female with a past medical history of type 2 diabetes, CHF, chronic kidney disease, coronary artery disease, hypertension, and osteoporosis who is seen bedside after undergoing open reduction internal fixation of the right trimalleolar ankle with primary hindfoot TTC nail performed by Dr. Edmondson on 01/07/2019. Patient was direct admitted on Wednesday afternoon 01/06/2019 for the planned surgery on 01/07/2019. Today's postoperative day #3. Patient states her pain is well-controlled. She is remaining non-weightbearing on the right lower extremity. Patient states she thinks she is doing well with physical therapy. Patient notes she has had multiple bowel movements post-operatively. She denies numbness or tingling of the right lower extremity. She denies chest pain, shortness of breath, nausea, or vomiting. She has no new complaints today. Objective - Vital Signs Vital signs: Vital Signs Temp 98.1 F 01/10/19 08:17 Pulse 67 01/10/19 08:17 Resp 16 01/10/19 08:17 BP 162/70 01/10/19 08:17 Pulse Ox 92 L 01/10/19 08:17 Intake & Output 01/09/19 01/10/19 01/10/19 18:59 06:59 18:59 Intake Total 540 Balance 540 Intake: Oral 540 Other: Voiding Method Bedpan Bedpan # Voids 4 2 - Exam On examination, the patient is sitting up in bed in no acute distress. Patient is alert and oriented 2. On inspection of the right lower extremity, there is a bulky Villa splint in place. The splint is clean, dry, and intact. The right toes are warm and well perfused, with capillary refill less than 2 seconds. The patient is able to wiggle her right toes without difficulty. Sensation is intact to light touch of the right dorsal and plantar foot, as well as the dorsal first webspace. Neurovascular is intact of the right lower extremity. Compression stocking in place on the left lower extremity, the left calf is soft to palpation. - Labs CBC & Chem 7: 01/08/19 07:35 01/09/19 09:20 Labs: Abnormal Lab Results - Last 24 Hours (Table) 01/09/19 Range/Units 09:20 Sodium 134 L (137-145) mmol/L BUN 29 H (7-17) mg/dL Creatinine 1.50 H (0.52-1.04) mg/dL Glucose 211 H (74-99) mg/dL Assessment and Plan Assessment: Right trimalleolar ankle fracture status post open reduction and internal fixation with primary hindfoot TTC nail on 01/07/19 Plan: - Strict nonweightbearing of the right lower extremity. Ice and elevate the right lower extremity to decrease pain and swelling. - Physical therapy for gait and balance training. - Continue pain management with [place] 5/325mg. - 2 doses of postoperative antibiotics complete. - Anticoagulation per medicine. Appreciate medicine consult for medical management. - Anticipate discharge to extended care facility in [place]. Patient discussed with case management, prior authorization is currently pending. Anticipate discharge within the next 2-48 hours.
[2019-01-10] MEDS: IPRATROPIUM-ALBUTEROL 3 ML NEB INHALATION SCH ×3 (09:01→19:22)
[2019-01-10] MEDS ORDERED: FUROSEMIDE 40 MG TAB PO SCH (12:00)
--- NOTE | 2019-01-10 12:38 | XR ---
EXAMINATION TYPE: XR chest 1V DATE OF EXAM: 01/10/2019 CLINICAL HISTORY: Difficulty breathing progress study. TECHNIQUE: Single AP portable upright view of the chest is obtained. COMPARISON: Chest x-ray from [address] chest January 27, 2017. FINDINGS: There is chronic parenchymal change redemonstrated bilaterally most prominent in the left lung base without suspicious new focal airspace opacity, pleural effusion, or pneumothorax seen. Card iomegaly is redemonstrated with atherosclerotic thoracic aorta. Metallic stent graft in the aortic ro ot with dense mitral annular calcifications is again seen. Osseous structures are demineralized. Slig ht underlying scoliotic curvature is present. IMPRESSION: Overall stable findings, cardiomegaly and chronic parenchymal changes without suspiciou s acute infiltrate.
--- NOTE | 2019-01-10 14:27 | P.PN ---
Subjective 83-year-old female with multiple medical problems including atrial fibrillation heart failure chronic diastolic dysfunction admitted for elective right ankle open reduction and fixation for trimalleolar fracture sepsis underwent surgery. Patient is bit short of breath or believe secondary to pulmonary edema patient does have crackles on exam does have elevated JVD. Patient was started on Lasix IV fluids will be discontinued will obtain a chest x-ray. Serum creatinine around 1.27 and 1.3 on admission baseline around 1. Patient will be resumed on Eliquis 01/10/2019 Patient is looking which did better today patient was resumed on oral Lasix possibility of discharge tomorrow chest x-ray did not show any increased pulmonary edema Constitutional: Denied any fatigue denied any fever. Cardio vascular: denied any chest pain, palpitations Gastrointestinal denied any nausea vomiting Pulmonary: As mentioned in HPI Neurologic denied any new focal deficits All inpatient medications were reviewed and appropriate changes in these medications as dictated in the interval history and assessment and plan. Objective - Vital Signs Vital signs: Vital Signs Temp 98.1 F 01/10/19 08:17 Pulse 67 01/10/19 08:17 Resp 16 01/10/19 08:17 BP 162/70 01/10/19 08:17 Pulse Ox 92 L 01/10/19 08:17 Intake & Output 01/09/19 01/10/19 01/10/19 18:59 06:59 18:59 Intake Total 540 Balance 540 Intake: Oral 540 Other: Voiding Method Bedpan Bedpan Bedside Commode # Voids 4 2 - Exam PHYSICAL EXAMINATION: GENERAL: The patient is alert and oriented x3, not in any acute distress. Well developed, well nourished. HEENT: Pupils are round and equally reacting to light. EOMI. No scleral icterus. No conjunctival pallor. Normocephalic, atraumatic. No pharyngeal erythema. No thyromegaly. CARDIOVASCULAR: S1 and S2 present. No murmurs, rubs, or gallops. Patient does have minimally elevated JVD PULMONARY: No crackles on exam good air entry into bilateral lung sandoval ABDOMEN: Soft, nontender, nondistended, normoactive bowel sounds. No palpable organomegaly. MUSCULOSKELETAL: No joint swelling or deformity. EXTREMITIES: Right ankle post surgical packing NEUROLOGICAL: Gross neurological examination did not reveal any focal deficits. SKIN: No rashes. - Labs CBC & Chem 7: 01/08/19 07:35 01/09/19 09:20 Assessment and Plan Plan: -Open reduction internal fixation for right ankle fracture postoperative day 3: Pain management as per primary service with the avoid opiates, benzodiazepines barbiturates and anticholinergic medications these are being discontinued except for [place]. Patient cannot take nonsteroidal anti-inflammatory see their although can take tramadol if needed. Patient can be resumed on anticoagulation -Congestive heart failure chronic diastolic dysfunction with acute exacerbation because of IV fluids in the perioperative period, patient appears to be euvolemic presently patient will be resumed on oral Lasix -Atrial fibrillation presently rate controlled anti-coagulation will be resumed . -History of carotid stenosis status post replacement of aortic valve Type 2 diabetes mellitus hold off oral hyperglycemic agents patient will be continued on on sliding scale insulin. 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
[2019-01-10] MEDS: FAMOTIDINE 20 MG TAB PO SCH (21:18)
[2019-01-10] MEDS: DOXAZOSIN 4 MG TAB PO SCH (21:18)
[2019-01-11] MEDS: IPRATROPIUM-ALBUTEROL 3 ML NEB INHALATION SCH ×2 (07:55→13:31)
[2019-01-11] MEDS: ATENOLOL 50 MG TAB PO SCH (09:11)
[2019-01-11] MEDS: APIXABAN 2.5 MG TABLET PO SCH (09:11)
[2019-01-11] MEDS ORDERED: FUROSEMIDE 20 MG TAB PO SCH (12:00)
[2019-01-11 14:24] VITALS: BP 126/67; PULSE 78; RESP 16; TEMP 98
--- NOTE | 2019-01-11 14:42 | P.DS ---
Providers Date of admission: 01/06/19 13:37 Attending physician: Eros Edmondson Consults: 01/06/19 11:59 Consult Physician Routine Consulting Provider: Martin Gilliam Consult Reason/Comments: Pre-operative clearance and medical management Do you want consulting provider notified?: Yes Placement Type Exists?: Yes Primary care physician: Sara Franki [facility] Course: This patient is an 83-year-old female who sustained a fall resulting in a closed right trimalleolar ankle fracture. She initially presented to the [facility] emergency department, where she was admitted for replacement and underwent a closed reduction and splinting. After she was discharged to a fpc in [place], she was seen in the office by Dr. Edmondson. Patient underwent an open reduction and internal fixation of the right trimalleolar ankle fracture with primary hybrid TTC nail on 01/07/[address] Edmondson. The procedure is performed without complication or sequelae. The patient is doing well postoperatively. Vital signs are stable on postop day #4. The patient is examined bedside this morning. Patient states her pain is well- controlled. She states she is remaining non-weightbearing on the right lower extremity. She states she has been working with physical therapy and has had minimal issues transferring to the chair. She notes she has had multiple bowel movements since surgery. Patient denies numbness or tingling of the right lower extremity. There are no new complaints or concerns today. On examination, the patient is sitting up in bed in no acute distress. She is alert and orientated x3. On inspection of the right lower extremity, there is a bulky [place] splint in place. Splint is clean, dry, intact. Patient is able to wiggle her right toes without issue. The toes are warm and well-perfused with brisk capillary refill. Sensation is intact to light touch of the dorsal and plantar foot, as well as first dorsal webspace. The left calf is soft and non- tender to palpation. Lower extremity compression stocking in place on left lower extremity. The patient is discharged to rehab pending medical clearance today. Please refer to med rec for accurate list of medications. Patient Condition at Discharge: Fair Plan - Discharge Summary New Discharge Prescriptions: New Docusate [Colace] 100 mg PO BID #60 capsule Hydrocodone/Acetaminophen [[place] 5-325] 1 tab PO Q6HR PRN #40 tab PRN Reason: Pain INSULIN LISPRO (HumaLOG) [humaLOG] 0 unit SQ ACHS #1 vial Sennosides-Docusate Sodium [Senokot-S] 2 each PO HS PRN tab PRN Reason: Constipation Continue glipiZIDE [Glucotrol] 10 mg PO PC-BID Terazosin [Hytrin] 5 mg PO HS Linagliptin [Tradjenta] 5 mg PO DAILY Ferrous Sulfate [Iron (65 MG Elemental)] 325 mg PO DAILY Cholecalciferol [Vitamin D3] 1,000 unit PO DAILY Ascorbic Acid [Vitamin C] 500 mg PO DAILY Furosemide [Lasix] 20 mg PO MOWEFR Cyanocobalamin [Vitamin B-12] 500 mcg PO DAILY Flaxseed Oil [[place]-3 Flaxseed Oil] 3,600 mg PO HS Fish Oil/Dha/Epa [Fish Oil 1,200 mg Fish Oil] 1 cap PO DAILY Sodium Polystyrene Sulfon/Sorb [Kionex 15 gm/60 ml Suspension] 15 gm PO Q14D L.acidoph,Paracasei, B.lactis [Probiotic] 1 cap PO HS Apixaban [Eliquis] 2.5 mg PO BID Furosemide [Lasix] 40 mg PO SUTUTHSA Zinc 50 mg PO DAILY Acetaminophen Tab [Tylenol] 500 mg PO Q6H PRN #30 tablet PRN Reason: Pain Ipratropium-Albuterol Nebulize [Duoneb 0.5 mg-3 mg/3 ml Soln] 3 ml INHALATION RT-TID ampul.neb Hydrocodone/Acetaminophen [[place] 5-325] 1 tab PO Q6HR PRN #40 tab PRN Reason: Pain Vitamin E (Dl,Tocopheryl Acet) [Vitamin E] 400 unit PO DAILY Ranitidine HCl 150 mg PO HS Magnesium Oxide [Mag-Ox] 400 mg PO DAILY Docusate [Colace] 100 mg PO BID Atenolol 100 mg PO DAILY Changed amLODIPine [Norvasc] 5 mg PO DAILY #0 Discharge Medication List Linagliptin [Tradjenta] 5 mg PO DAILY 01/27/17 [History] Terazosin [Hytrin] 5 mg PO HS 01/27/17 [History] glipiZIDE [Glucotrol] 10 mg PO PC-BID 01/27/17 [History] Ascorbic Acid [Vitamin C] 500 mg PO DAILY 07/15/17 [History] Cholecalciferol [Vitamin D3] 1,000 unit PO DAILY 07/15/17 [History] Ferrous Sulfate [Iron (65 MG Elemental)] 325 mg PO DAILY 07/15/17 [History] Furosemide [Lasix] 20 mg PO MOWEFR 07/15/17 [History] Cyanocobalamin [Vitamin B-12] 500 mcg PO DAILY 06/22/18 [History] Fish Oil/Dha/Epa [Fish Oil 1,200 mg Fish Oil] 1 cap PO DAILY 06/22/18 [History] Flaxseed Oil [[place]-3 Flaxseed Oil] 3,600 mg PO HS 06/22/18 [History] L.acidoph,Paracasei, B.lactis [Probiotic] 1 cap PO HS 06/22/18 [History] Sodium Polystyrene Sulfon/Sorb [Kionex 15 gm/60 ml Suspension] 15 gm PO Q14D 0 06/22/18 [History] Apixaban [Eliquis] 2.5 mg PO BID 12/26/18 [History] Furosemide [Lasix] 40 mg PO SUTUTHSA 12/26/18 [History] Zinc 50 mg PO DAILY 12/26/18 [History] Acetaminophen Tab [Tylenol] 500 mg PO Q6H PRN #30 tablet 12/29/18 [Rx] Hydrocodone/Acetaminophen [[place] 5-325] 1 tab PO Q6HR PRN #40 tab 12/29/18 [Rx] Ipratropium-Albuterol Nebulize [Duoneb 0.5 mg-3 mg/3 ml Soln] 3 ml INHALATION RT-TID ampul.neb 12/29/18 [Rx] Atenolol 100 mg PO DAILY 01/06/19 [History] Docusate [Colace] 100 mg PO BID 01/06/19 [History] Magnesium Oxide [Mag-Ox] 400 mg PO DAILY 01/06/19 [History] Ranitidine HCl 150 mg PO HS 01/06/19 [History] Vitamin E (Dl,Tocopheryl Acet) [Vitamin E] 400 unit PO DAILY 01/06/19 [History] Docusate [Colace] 100 mg PO BID #60 capsule 01/09/19 [Rx] Hydrocodone/Acetaminophen [[place] 5-325] 1 tab PO Q6HR PRN #40 tab 01/09/19 [Rx] INSULIN LISPRO (HumaLOG) [humaLOG] 0 unit SQ ACHS #1 vial 01/09/19 [Rx] Sennosides-Docusate Sodium [Senokot-S] 2 each PO HS PRN tab 01/09/19 [Rx] amLODIPine [Norvasc] 5 mg PO DAILY #0 01/09/19 [Rx] Follow up Appointment(s)/Referral(s): Sara Doan DO [Primary Care Provider] - 01/18/19 3:40 pm Eros Edmondson MD [Medical Doctor] - 01/23/19 1:30 pm Activity/Diet/Wound Care/Special Instructions: Return to [facility] for rehab on discharge: #[phone]. -Strict non-weight bearing on your operative leg. Do not remove your splint; Keep splint clean, dry, and intact -Use crutches, knee scooter, or a walker to ambulate after surgery. -Elevate and ice operative leg to help reduce swelling and control pain. -Take pain medications as prescribed. Take Colace as a stool softener. -Follow-up appointment with Dr. Edmondson in the office in 2 weeks. -Call the office with any questions or concerns, Discharge Disposition: TRANSFER TO SNF/ECF
--- NOTE | 2019-01-11 15:31 | P.PN ---
Subjective 83-year-old female with multiple medical problems including atrial fibrillation heart failure chronic diastolic dysfunction admitted for elective right ankle open reduction and fixation for trimalleolar fracture sepsis underwent surgery. Patient is bit short of breath or believe secondary to pulmonary edema patient does have crackles on exam does have elevated JVD. Patient was started on Lasix IV fluids will be discontinued will obtain a chest x-ray. Serum creatinine around 1.27 and 1.3 on admission baseline around 1. Patient will be resumed on Eliquis 01/10/2019 Patient is looking which did better today patient was resumed on oral Lasix possibility of discharge tomorrow chest x-ray did not show any increased pulmonary edema 01/11/2019 Patient is fairly euvolemic no overnight events clinically doing well can be discharged from medical perspective to subacute rehabilitation discharge medication consolation was reviewed patient doesn't have any shortness of breath at this time. Constitutional: Denied any fatigue denied any fever. Cardio vascular: denied any chest pain, palpitations Gastrointestinal denied any nausea vomiting Pulmonary: As mentioned in HPI Neurologic denied any new focal deficits All inpatient medications were reviewed and appropriate changes in these medications as dictated in the interval history and assessment and plan. Objective - Vital Signs Vital signs: Vital Signs Temp 98.0 F 01/11/19 14:23 Pulse 78 01/11/19 14:23 Resp 16 01/11/19 14:23 BP 126/67 01/11/19 14:23 Pulse Ox 95 01/11/19 14:23 Intake & Output 01/10/19 01/11/19 01/11/19 18:59 06:59 18:59 Intake Total 0 Balance 0 Intake: Intake, IV Titration 0 Amount Lactated Ringers 1,000 ml 0 @ 100 mls/hr IV .Q10H [facility] Rx#:[id number] Other: Voiding Method Bedside Commode Bedpan # Voids 5 3 2 # Bowel Movements 1 2 - Exam PHYSICAL EXAMINATION: GENERAL: The patient is alert and oriented x3, not in any acute distress. Well developed, well nourished. HEENT: Pupils are round and equally reacting to light. EOMI. No scleral icterus. No conjunctival pallor. Normocephalic, atraumatic. No pharyngeal erythema. No thyromegaly. CARDIOVASCULAR: S1 and S2 present. No murmurs, rubs, or gallops. Patient does have minimally elevated JVD PULMONARY: No crackles on exam good air entry into bilateral lung sandoval ABDOMEN: Soft, nontender, nondistended, normoactive bowel sounds. No palpable organomegaly. MUSCULOSKELETAL: No joint swelling or deformity. EXTREMITIES: Right ankle post surgical packing NEUROLOGICAL: Gross neurological examination did not reveal any focal deficits. SKIN: No rashes. - Labs CBC & Chem 7: 01/08/19 07:35 01/09/19 09:20 Assessment and Plan Plan: -Open reduction internal fixation for right ankle fracture postoperative day 4: Pain management as per primary service with the avoid opiates, benzodiazepines barbiturates and anticholinergic although patient appears to have been tolerating [place], and is being discharged on [place] to subacute rehab -Congestive heart failure chronic diastolic dysfunction with acute exacerbation because of IV fluids in the perioperative period, patient appears to be euvolemic presently patient was resumed on oral Lasix -Atrial fibrillation presently rate controlled anti-coagulation was resumed . -History of carotid stenosis status post replacement of aortic valve Type 2 diabetes mellitus hold off oral hyperglycemic agents patient will be continued on on sliding scale insulin. 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
== END 2019-01-11 16:31 | DRG 493 ==
LOC: 4SSUR 13:37
PROVIDERS: ADMIT Orthopaedic Surgery; ATTEND Orthopaedic Surgery
PROC: 0QSL04Z Reposition Right Tarsal with Internal Fixation Device, Open Approach (ICD-10-PCS; principal; 2019-01-06)
PROC: 0QSG04Z Reposition Right Tibia with Internal Fixation Device, Open Approach (ICD-10-PCS; principal; 2019-01-06)
DX: S82.851A Displaced trimalleolar fracture of right lower leg, initial encounter for closed fracture (principal); I13.0 Hypertensive heart and chronic kidney disease with heart failure and stage 1 through stage 4 chronic kidney disease, or unspecified chronic kidney disease; I42.9 Cardiomyopathy, unspecified; I50.32 Chronic diastolic (congestive) heart failure; N17.9 Acute kidney failure, unspecified; E11.22 Type 2 diabetes mellitus with diabetic chronic kidney disease; E11.319 Type 2 diabetes mellitus with unspecified diabetic retinopathy without macular edema; I25.10 Atherosclerotic heart disease of native coronary artery without angina pectoris; I48.91 Unspecified atrial fibrillation; K21.9 Gastro-esophageal reflux disease without esophagitis; M81.0 Age-related osteoporosis without current pathological fracture; N18.3 Chronic kidney disease, stage 3 (moderate); W19.XXXA Unspecified fall, initial encounter; Z79.01 Long term (current) use of anticoagulants; Z79.84 Long term (current) use of oral hypoglycemic drugs; Z79.899 Other long term (current) drug therapy; Z82.49 Family history of ischemic heart disease and other diseases of the circulatory system; Z87.891 Personal history of nicotine dependence; Z91.81 History of falling; Z95.3 Presence of xenogenic heart valve; Z98.42 Cataract extraction status, left eye; Z98.41 Cataract extraction status, right eye
CPT/HCPCS: 64450; 64493; 71045; 80048; 80053; 83880; 85025; 85027; 85610; 94760

== ENCOUNTER → 2019-03-28 | Outpatient (CLI) | payer MEDICARE ==
--- NOTE | 2019-03-28 12:44 | US ---
EXAMINATION TYPE: US abdomen limited DATE OF EXAM: 03/28/2019 COMPARISON: NONE CLINICAL HISTORY: K42.9 umbilical hernia w/o obstruction. Palpable area inferior to the umbilicus x 1 year. Assess for hernia at location of: inferior to umbilicus. Scanned area of concern midline inferior to umbilicus. No abnormalities seen at this time by ultrasou nd. IMPRESSION: No sonographic evidence of hernia, cystic mass, nor solid mass. No sonographic correlate to the patient's palpable abnormality. Real-time scanning was performed by the bottom cementer utilizing Valsalva and additional dynamic maneuve rs to assess for hernia. Images of the contralateral side were also acquired for direct comparison.
== END | disposition home or self-care (01) ==
LOC: RADUSWWP 11:02
PROVIDERS: ATTEND Family Medicine
DX: K42.9 Umbilical hernia without obstruction or gangrene (principal)
CPT/HCPCS: 76705